=== PATIENT | female | born 1945 | race Caucasian/White ===

== ENCOUNTER 2021-07-11 10:38 | Observation (INO) | payer MEDICARE, OTHER ==
[2021-07-11] MEDS: BUMEX 1 MG IV SCH ×2 (12:20→17:21)
[2021-07-11 12:29] LABS: Hematocrit 34.3 % (35-47); Hemoglobin 10.6 gm/dl (12.0-16.0); Mean Cell Volume 86.4 fl (78-100); Mean Corpuscular Hemoglobin 26.7 pg (26-32); Mean Corpuscular Hgb Concent. 30.9 g/dl (32-36); Mean Platelet Volume 9.4 fl (7.5-11.0); Platelet Count 158 K/mm3 (150-450); Red Blood Count 3.97 M/mm3 (4.1-5.4); Red Cell Distribution Width 15.7 % (11.5-14.0); White Blood Count 5.3 K/mm3 (4.0-10.5)
[2021-07-11 12:50] LABS: BLOOD UREA NITROGEN 23 mg/dL (7-17); CHLORIDE 102 mmol/L (98-107); Calcium 8.7 mg/dL (8.4-10.2); Carbon Dioxide 30 mmol/L (22-30); Creatinine 1 1.31 mg/dL (0.52-1.04); EST GLOMERULAR FILTRATION RATE 41.8 ML/MIN; Glucose 101 mg/dL (74-106); NT PRO BNP 3760 pg/mL (0-1800); Potassium 3.3 mmol/L (3.5-5.1); SODIUM 142 mmol/L (137-145); TROPONIN < 0.012 ng/mL (0.000-0.034)
[2021-07-11 13:08] LABS: INFLUENZA A NEGATIVE (NEGATIVE); INFLUENZA B NEGATIVE (NEGATIVE); RESPIRATORY SYNCTIAL VIRUS NEGATIVE (Negative); SARS-CoV-2 Xpert Express NEGATIVE (NEGATIVE)
--- NOTE | 2021-07-11 14:50 | XRAY ---
Indication: CHF. Comparison: March 18, 2012. PA/lateral chest remains clear. Heart now borderline enlarged with new coronary stent graft and new left dual-lead pacemaker. Large hiatal hernia appears much smaller. Bony thorax intact with mild osteopenia and degenerative changes. Impression: Nonacute chest with chronic features.
--- NOTE | 2021-07-11 18:38 | PCM.HP.ADD ---
Addendum to History & Physical - History & Physical Addendum Addendum to History & Physical: This certifies that the History & Physical in the electronic chart reflects the current health status of the patient. If there are changes in the H&P these changes/exceptions are listed as follows.
[2021-07-11] MEDS: PROVENTIL 2.5 MG/3 ML NEB IH PRN (18:42)
[2021-07-11] MEDS: COREG 12.5 MG PO SCH (21:33)
[2021-07-11] MEDS: ELIQUIS 2.5 MG TABLET PO SCH (21:33)
[2021-07-11] MEDS ORDERED: ZOCOR 20MG ONE (21:37)
[2021-07-11] MEDS ORDERED: NON-FORMULARY ITEM (Apixaban*** [Eliquis 5 Mg Tablet***] 5 MG Tablet) PO SCH (22:00)
[2021-07-12] MEDS: PROVENTIL 2.5 MG/3 ML NEB IH PRN ×2 (04:55→18:33)
--- NOTE | 2021-07-12 08:10 | PCM.NOTE ---
Date and Time: 07/12/21807 Subjective Assessment: doing little better - Review of Systems Constitutional: No Fever, No Chills Eyes: No Symptoms Ears, Nose, & Throat: No Symptoms Respiratory: Orthopnea, Short Of Breath, No Cough Cardiac: No Chest Pain, No Edema, No Syncope Abdominal/Gastrointestinal: No Abdominal Pain, No Nausea, No Vomiting, No Diarrhea Genitourinary Symptoms: No Dysuria Musculoskeletal: No Back Pain, No Neck Pain Skin: No Rash Neurological: No Dizziness, No Focal Weakness, No Sensory Changes Psychological: No Symptoms Endocrine: No Symptoms Hematologic/Lymphatic: No Symptoms Immunological/Allergic: No Symptoms Objective Exam General Appearance: no apparent distress, alert Neurologic Exam: alert, oriented x 3, cooperative, normal mood/affect, nml cerebellar function, sensation nml, No motor deficits Skin Exam: normal color, warm, dry Eye Exam: PERRL, EOMI, eyes nml inspection Ears, Nose, Throat Exam: normal ENT inspection, pharynx normal, moist mucous membranes Neck Exam: normal inspection, non-tender, supple, full range of motion Respiratory Exam: diminished breath sounds, wheezing, No respiratory distress Cardiovascular Exam: regular rate/rhythm, normal heart sounds Gastrointestinal/Abdomen Exam: soft, No tenderness, No mass Extremity Exam: normal inspection, normal range of motion Back Exam: normal inspection, normal range of motion, No CVA tenderness, No vertebral tenderness Pelvic Exam: deferred Rectal Exam: deferred OBJECTIVE DATA Vital Signs: Vital Signs - 24 hr Temp Pulse Resp BP BP Pulse Ox 07/12/21 07:45 97.1 F 70 14 169/75 93 L 07/12/21 04:55 70 18 93 L 07/12/21 04:00 97.9 F 70 18 126/60 91 L 07/12/21 00:00 97.5 F 70 20 125/59 92 L 07/11/21 19:55 97.7 F 70 22 133/60 97 07/11/21 19:14 94 L 07/11/21 18:46 80 18 89 L 07/11/21 18:24 70 20 98 07/11/21 16:00 97.5 F 71 18 142/67 98 07/11/21 14:17 70 22 98 07/11/21 12:57 98 07/11/21 11:54 94 L 07/11/21 11:31 98.0 F 70 22 144/72 94 L Pain Assessment - Last Documented Pain Intensity 0 Intake and Output: Intake & Output 07/09/21 07/10/21 07/11/21 07/12/21 11:59 11:59 11:59 11:59 Intake Total 480 Output Total 2075 Balance -1595 Weight 91.8 kg 92 kg Lab Results: Lab Results-Last 24 Hours 07/11/21 07/11/21 07/11/21 Range/Units 11:47 12:15 12:15 WBC 5.3 (4.0-10.5) K/mm3 RBC 3.97 L (4.1-5.4) M/mm3 Hgb 10.6 L (12.0-16.0) gm/dl Hct 34.3 L (35-47) % MCV 86.4 (78-100) fl MCH 26.7 (26-32) pg MCHC 30.9 L (32-36) g/dl RDW 15.7 H (11.5-14.0) % Plt Count 158 (150-450) K/mm3 MPV 9.4 (7.5-11.0) fl Sodium 142 (137-145) mmol/L Potassium 3.3 L (3.5-5.1) mmol/L Chloride 102 (98-107) mmol/L Carbon Dioxide 30 (22-30) mmol/L Anion Gap 13.0 (5-15) MEQ/L BUN 23 H (7-17) mg/dL Creatinine 1.31 H (0.52-1.04) mg/dL Estimated GFR 41.8 ML/MIN Glucose 101 (74-106) mg/dL Calcium 8.7 (8.4-10.2) mg/dL Troponin I < 0.012 (0.000-0.034) ng/mL NT-Pro-B Natriuret Pep 3760 H (0-1800) pg/mL Influenza Type A Ag NEGATIVE (NEGATIVE) Influenza Type B Ag NEGATIVE (NEGATIVE) RSV (PCR) NEGATIVE (Negative) SARS-CoV-2 (PCR) NEGATIVE (NEGATIVE) Radiology Exams: Radiology Procedures Category Date Time Status CHEST 2 VIEWS (PA AND LAT) Routine Exams 07/11/21 13:00 Completed ECHO W/2D AND DOPPLER [US] Routine Exams 07/11/21 11:54 Taken Assessment/Plan (1) CHF (congestive heart failure), NYHA class III Current Visit: Yes Status: Acute Qualifiers: Congestive heart failure type: combined Congestive heart failure chronicity: acute on chronic Qualified Code(s): I50.43 - Acute on chronic combined systolic (congestive) and diastolic (congestive) heart failure Assessment & Plan: Chief Complaint Diagnosis CHF Allergies Allergy/AdvReac Type Severity Reaction Status Date / Time codeine [Codeine] Allergy Mild Rash Verified 03/18/12 17:29 Vital Signs (Last 24 hours) Temp Pulse Resp BP BP Pulse Ox 07/12/21 07:45 97.1 F 70 14 169/75 93 L 07/12/21 04:55 70 18 93 L 07/12/21 04:00 97.9 F 70 18 126/60 91 L 07/12/21 00:00 97.5 F 70 20 125/59 92 L 07/11/21 19:55 97.7 F 70 22 133/60 97 07/11/21 19:14 94 L 07/11/21 18:46 80 18 89 L 07/11/21 18:24 70 20 98 07/11/21 16:00 97.5 F 71 18 142/67 98 07/11/21 14:17 70 22 98 07/11/21 12:57 98 07/11/21 11:54 94 L 07/11/21 11:31 98.0 F 70 22 144/72 94 L Home Medications Medication Instructions Recorded Confirmed Last Taken Type Apixaban [Eliquis 5 mg 5 mg PO BID 07/11/21 07/11/21 07/11/21 History Tablet] Aspirin EC 81 mg [Ecotrin 81 81 mg PO DAILY 07/11/21 07/11/21 07/11/21 History mg] Montelukast Sodium 10 mg 10 mg PO DAILY 07/11/21 07/11/21 07/11/21 History [Singulair 10 MG] Torsemide 20 mg [Demadex 20 40 mg PO DAILY 07/11/21 07/11/21 07/11/21 History mg] Current Medications Generic Name Dose Route Start Last Admin Trade Name Freq PRN Reason Stop Dose Admin Albuterol Sulfate 2.5 mg 07/11/21 13:03 07/12/21 04:55 Albuterol Sulfate 2.5 Mg/3 Ml Neb IH 08/10/21 13:02 2.5 mg QIDPRN PRN Administration SHORTNESS OF BREATH Apixaban 5 mg 07/11/21 22:00 07/11/21 21:33 Apixaban 2.5 Mg Tablet PO 08/10/21 21:59 5 mg BID JORGE Administration Aspirin 81 mg 07/12/21 10:00 Aspirin 81 Mg Tablet.Ec PO 08/11/21 09:59 DAILY JORGE Bumetanide 1 mg 07/11/21 12:30 07/11/21 17:21 Bumetanide 0.25 Mg/Ml 4ml Vial IV 08/10/21 12:29 1 mg BID DIURETIC JORGE Administration Carvedilol 25 mg 07/11/21 22:00 07/11/21 21:33 Carvedilol 12.5 Mg Tablet PO 08/10/21 21:59 25 mg BID JORGE Administration Levothyroxine Sodium 88 mcg 07/12/21 10:00 Levothyroxine Sodium 88 Mcg Tablet PO 08/11/21 09:59 DAILY JORGE Montelukast Sodium 10 mg 07/12/21 10:00 Montelukast Sodium 10 Mg Tablet PO 08/11/21 09:59 DAILY JORGE Pantoprazole Sodium 40 mg 07/12/21 10:00 Protonix (Pantoprazole) 40 Mg Tablet PO 08/11/21 09:59 DAILY JORGE Potassium Chloride 20 meq 07/12/21 10:00 Potassium Chloride 10 Meq Tablet PO 08/11/21 09:59 DAILY JORGE Simvastatin 40 mg 07/12/21 22:00 Simvastatin 20 Mg Tablet PO 08/11/21 21:59 HS JORGE Discontinued Medications Generic Name Dose Route Start Last Admin Trade Name Bertq PRN Reason Stop Dose Admin Simvastatin 40 mg 07/12/21 10:00 07/11/21 21:38 Simvastatin 20 Mg Tablet PO 08/11/21 09:59 40 mg DAILY JORGE Administration Simvastatin Confirm 07/11/21 21:37 Simvastatin 20 Mg Tablet Administered 07/11/21 21:38 Dose 40 mg .ROUTE .STK-MED ONE Intake & Output (Last 24 hours) 07/09/21 07/10/21 07/11/21 07/12/21 11:59 11:59 11:59 11:59 Intake Total 480 Output Total 0155 Balance -1595 Weight 91.8 kg 92 kg Laboratory Results (Last 24 hours) 07/11/21 07/11/21 07/11/21 12:15 12:15 11:47 WBC 5.3 RBC 3.97 L Hgb 10.6 L Hct 34.3 L MCV 86.4 MCH 26.7 MCHC 30.9 L RDW 15.7 H Plt Count 158 MPV 9.4 Sodium 142 Potassium 3.3 L Chloride 102 Carbon Dioxide 30 Anion Gap 13.0 BUN 23 H Creatinine 1.31 H Estimated GFR 41.8 Glucose 101 Calcium 8.7 Troponin I < 0.012 NT-Pro-B Natriuret Pep 3760 H Influenza Type A Ag NEGATIVE Influenza Type B Ag NEGATIVE RSV (PCR) NEGATIVE SARS-CoV-2 (PCR) NEGATIVE Orders (Last 24 hours) Category Date Time Status Bedrest with BRP/BSC TOLERATED Activity 07/11/21 11:53 Active Code Status Order ROUTINE Care 07/11/21 11:53 Active IV Care Q6H Care 07/11/21 11:53 Active IV Insertion ROUTINE Care 07/11/21 11:54 Completed Implement CHF Pathway ROUTINE Care 07/11/21 11:[address] in Observation ROUTINE Care 07/11/21 11:53 Active Telemetry CONTINUOUS Care 07/11/21 11:54 Active Vital Signs Q4H Care 07/11/21 11:53 Active Weight,Daily 0600 Care 07/11/21 11:54 Active House Regular Diet Diet 07/11/21 Dinner Active Nutritional Consult ROUTINE Diet 07/11/21 11:54 Active CHEST 2 VIEWS (PA AND LAT) Routine Exams 07/11/21 13:00 Completed ECHO W/2D AND DOPPLER [US] Routine Exams 07/11/21 11:54 Taken BMP Stat Lab 07/11/21 12:15 Completed CBC Stat Lab 07/11/21 12:15 Completed NT PRO BNP Stat Lab 07/11/21 12:15 Completed TROPONIN Stat Lab 07/11/21 12:15 Completed Albuterol 2.5 mg/3 ml Neb [Proventil 2.5 mg/3 ml Neb Med 07/11/21 13:03 Active ] 2.5 mg IH QIDPRN PRN Apixaban [Eliquis 2.5 mg Tablet] Med 07/11/21 22:00 Active 5 mg PO BID Aspirin EC 81 mg [Ecotrin 81 mg] Med 07/12/21 10:00 Active 81 mg PO DAILY Bumetanide 1 mg [Bumex 1 mg] Med 07/11/21 12:30 Active 1 mg IV BID DIURETIC Carvedilol 12.5 mg [Coreg 12.5 mg] Med 07/11/21 22:00 Active 25 mg PO BID Levothyroxine Sodium 88 Mcg [Synthroid 88 Mcg] Med 07/12/21 10:00 Active 88 mcg PO DAILY Montelukast Sodium 10 mg [Singulair 10 MG] Med 07/12/21 10:00 Active 10 mg PO DAILY PANTOPRAZOLE 40 mg Tablet [Protonix 40MG Tablet] Med 07/12/21 10:00 Active 40 mg PO DAILY Potassium Chloride 10 Meq Tab* [Klor Con 10 MEQ] Med 07/12/21 10:00 Active 20 meq PO DAILY Simvastatin 20Mg [Zocor 20Mg] Med 07/11/21 21:37 Discontinued 40 mg .ROUTE .STK-MED ONE Simvastatin 20Mg [Zocor 20Mg] Med 07/12/21 10:00 Discontinued 40 mg PO DAILY Simvastatin 20Mg [Zocor 20Mg] Med 07/12/21 22:00 Active 40 mg PO HS EKG STAT RT 07/11/21 11:54 Completed Oxygen NASAL CANNULA 2 lpm RT 07/11/21 11:54 Active Pulse Oximetry .continuos RT 07/11/21 12:57 Active Pulse Oximetry OVERNIGHT RT 07/11/21 11:54 Active Respiratory Therapy Assessment DAILY RT 07/12/21 07:00 Active Patient Care Notes (Last 24 hours) 07/11/21 17:26 Nursing Note by Beatrice Hines I received patients cardiology records from Dr.Angela Arizmendi and faxed to 's [place] office. 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 The office is faxing over patients medical records of last visit and testing that has been done. Initialized on 07/11/21 13:28 - END OF NOTE Code(s): I50.9 - HEART FAILURE, UNSPECIFIED (2) CHF (congestive heart failure), NYHA class III Current Visit: Yes Status: Acute Qualifiers: Congestive heart failure type: combined Congestive heart failure chronicity: acute on chronic Qualified Code(s): I50.43 - Acute on chronic combined systolic (congestive) and diastolic (congestive) heart failure Code(s): I50.9 - HEART FAILURE, UNSPECIFIED (3) COPD (chronic obstructive pulmonary disease) Current Visit: Yes Status: Chronic Qualifiers: COPD type: unspecified COPD Qualified Code(s): J44.9 - Chronic obstructive pulmonary disease, unspecified (4) Restrictive airway disease Current Visit: Yes Status: Acute Code(s): J98.4 - OTHER DISORDERS OF LUNG (5) Atrial fibrillation Current Visit: Yes Status: Acute Code(s): I48.91 - UNSPECIFIED ATRIAL FIBRILLATION
[2021-07-12] MEDS: ELIQUIS 2.5 MG TABLET PO SCH ×2 (08:39→22:07)
[2021-07-12] MEDS: COREG 12.5 MG PO SCH ×2 (08:39→22:08)
[2021-07-12] MEDS: Singulair 10 MG PO SCH (08:40)
[2021-07-12] MEDS: ECOTRIN 81 MG PO SCH (08:40)
[2021-07-12] MEDS: SYNTHROID 88 MCG PO SCH (08:40)
[2021-07-12] MEDS: Protonix 40MG Tablet PO SCH (08:40)
[2021-07-12] MEDS: Klor Con 10 MEQ PO SCH (08:40)
[2021-07-12] MEDS: BUMEX 1 MG IV SCH ×2 (08:41→17:37)
[2021-07-12] MEDS ORDERED: NON-FORMULARY ITEM (Simvastatin 40 Mg [Zocor 40 Mg] 40 MG Tablet) PO SCH (10:00)
[2021-07-12] MEDS ORDERED: ZOCOR 20MG PO SCH ×2 (10:00→22:00)
[2021-07-12] MEDS ORDERED: NON-FORMULARY ITEM (Omeprazole 20 Mg [Prilosec 20 Mg] 20 MG Capsule.Dr) PO SCH (10:00)
[2021-07-13 05:01] LABS: Basophil (Absolute #) 0.05 (0-0.4); Eosinophil % 12.5 % (0.00-5.0); Eosinophil (Absolute #) 0.67 (0-0.5); Hematocrit 36.1 % (35-47); Hemoglobin 11.1 gm/dl (12.0-16.0); Lymphocyte (Absolute #) 0.97 (1.0-4.6); Lymphocytes % 18.2 % (24.0-44.0); Mean Cell Volume 86.8 fl (78-100); Mean Corpuscular Hemoglobin 26.7 pg (26-32); Mean Corpuscular Hgb Concent. 30.7 g/dl (32-36); Mean Platelet Volume 9.6 fl (7.5-11.0); Monocyte (Absolute #) 0.45 (0.0-1.3); Monocytes % 8.4 % (0.0-12.0); Platelet Count 156 K/mm3 (150-450); Red Blood Count 4.16 M/mm3 (4.1-5.4); Red Cell Distribution Width 15.7 % (11.5-14.0); White Blood Count 5.3 K/mm3 (4.0-10.5)
[2021-07-13 05:33] LABS: Creatinine 1 1.27 mg/dL (0.52-1.04)
[2021-07-13 05:34] LABS: ALBUMIN 3.7 g/dL (3.5-5.0); ANION GAP 11.6 MEQ/L (5-15); Calcium 8.9 mg/dL (8.4-10.2); EST GLOMERULAR FILTRATION RATE 43.4 ML/MIN; Potassium 3.2 mmol/L (3.5-5.1); Total Protein 6.8 g/dL (6.3-8.2)
[2021-07-13] MEDS: PROVENTIL 2.5 MG/3 ML NEB IH PRN (05:35)
[2021-07-13 05:39] VITALS: PULSE 70
[2021-07-13 08:31] VITALS: BP 161/76; O2SAT 94
--- NOTE | 2021-07-13 08:37 | XRAY ---
Indication: CHF. Comparison: July 11, 2021. PA/lateral chest unchanged again hyperinflated and clear. Heart again borderline enlarged with left pacemaker and incidental small hiatal hernia. No new/acute abnormalities.
[2021-07-13] MEDS: Protonix 40MG Tablet PO SCH (09:27)
[2021-07-13] MEDS: ECOTRIN 81 MG PO SCH (09:27)
[2021-07-13] MEDS: Klor Con 10 MEQ PO SCH (09:27)
[2021-07-13] MEDS: ELIQUIS 2.5 MG TABLET PO SCH (09:27)
[2021-07-13] MEDS: COREG 12.5 MG PO SCH (09:27)
[2021-07-13] MEDS: Singulair 10 MG PO SCH (09:27)
[2021-07-13] MEDS: SYNTHROID 88 MCG PO SCH (09:28)
[2021-07-13] MEDS: BUMEX 1 MG IV SCH (09:28)
--- NOTE | 2021-07-13 12:45 | PCM.DS ---
Discharge Summary Date of Admission: 07/11/21 11:30 Admitting Physician: ERNESTINE RIOS Consults: Consults on Case 07/11/21 11:54 Nutritional Consult ROUTINE Primary Care Provider: ERNESTINE RIOS Allergies Allergies codeine [Codeine] Allergy (Mild, Verified 03/18/12 17:29) Rash Hospital Summary - Hospital Course Hospital Course: Chief Complaint Diagnosis CHF Allergies Allergy/AdvReac Type Severity Reaction Status Date / Time codeine [Codeine] Allergy Mild Rash Verified 03/18/12 17:29 Vital Signs (Last 24 hours) Temp Pulse Resp BP BP Pulse Ox 07/13/21 08:00 96.0 F 70 21 161/76 94 L 07/13/21 05:37 70 22 92 L 07/13/21 04:00 97.7 F 71 18 158/74 96 07/13/21 00:00 97.8 F 70 20 131/63 96 07/12/21 20:00 97.6 F 70 16 136/65 93 L 07/12/21 18:37 70 22 93 L 07/12/21 16:00 97 F 80 15 136/68 90 L Home Medications Medication Instructions Recorded Confirmed Last Taken Type Apixaban [Eliquis 5 mg 5 mg PO BID 07/11/21 07/11/21 07/11/21 History Tablet] Aspirin EC 81 mg [Ecotrin 81 81 mg PO DAILY 07/11/21 07/11/21 07/11/21 History mg] Montelukast Sodium 10 mg 10 mg PO DAILY 07/11/21 07/11/21 07/11/21 History [Singulair 10 MG] Torsemide 20 mg [Demadex 20 40 mg PO DAILY 07/11/21 07/11/21 07/11/21 History mg] Isosorbide Mononitrate 60 mg 60 mg PO DAILY 07/12/21 07/12/21 Unknown History [Imdur 60MG] Current Medications Discontinued Medications Generic Name Dose Route Start Last Admin Trade Name Freq PRN Reason Stop Dose Admin Albuterol Sulfate 2.5 mg 07/11/21 13:03 07/13/21 05:35 Albuterol Sulfate 2.5 Mg/3 Ml Neb IH 08/10/21 13:02 2.5 mg QIDPRN PRN Administration SHORTNESS OF BREATH Apixaban 5 mg 07/11/21 22:00 07/13/21 09:27 Apixaban 2.5 Mg Tablet PO 08/10/21 21:59 5 mg BID JORGE Administration Aspirin 81 mg 07/12/21 10:00 07/13/21 09:27 Aspirin 81 Mg Tablet.Ec PO 08/11/21 09:59 81 mg DAILY JORGE Administration Bumetanide 1 mg 07/11/21 12:30 07/13/21 09:28 Bumetanide 0.25 Mg/Ml 4ml Vial IV 08/10/21 12:29 1 mg BID DIURETIC JORGE Administration Carvedilol 25 mg 07/11/21 22:00 07/13/21 09:27 Carvedilol 12.5 Mg Tablet PO 08/10/21 21:59 25 mg BID JORGE Administration Levothyroxine Sodium 88 mcg 07/12/21 10:00 07/13/21 09:28 Levothyroxine Sodium 88 Mcg Tablet PO 08/11/21 09:59 88 mcg DAILY JORGE Administration Montelukast Sodium 10 mg 07/12/21 10:00 07/13/21 09:27 Montelukast Sodium 10 Mg Tablet PO 08/11/21 09:59 10 mg DAILY JORGE Administration Pantoprazole Sodium 40 mg 07/12/21 10:00 07/13/21 09:27 Protonix (Pantoprazole) 40 Mg Tablet PO 08/11/21 09:59 40 mg DAILY JORGE Administration Potassium Chloride 20 meq 07/12/21 10:00 07/13/21 09:27 Potassium Chloride 10 Meq Tablet PO 08/11/21 09:59 20 meq DAILY JORGE Administration Simvastatin 40 mg 07/12/21 10:00 07/11/21 21:38 Simvastatin 20 Mg Tablet PO 08/11/21 09:59 40 mg DAILY JORGE Administration Simvastatin Confirm 07/11/21 21:37 Simvastatin 20 Mg Tablet Administered 07/11/21 21:38 Dose 40 mg .ROUTE .STK-MED ONE Simvastatin 40 mg 07/12/21 22:00 07/12/21 22:08 Simvastatin 20 Mg Tablet PO 08/11/21 21:59 40 mg HS JORGE Administration Intake & Output (Last 24 hours) 07/11/21 07/12/21 07/13/2122 11:59 11:59 11:59 11:59 Intake Total 780 920 Output Total 2275 1400 Balance -1495 -480 Weight 91.8 kg 92 kg 91 kg Laboratory Results (Last 24 hours) 07/13/21 07/13/21 04:40 04:40 WBC 5.3 RBC 4.16 Hgb 11.1 L Hct 36.1 MCV 86.8 MCH 26.7 MCHC 30.7 L RDW 15.7 H Plt Count 156 MPV 9.6 Gran % 60.0 Eos # (Auto) 0.67 H Absolute Lymphs (auto) 0.97 L Absolute Monos (auto) 0.45 Lymphocytes % 18.2 L Monocytes % 8.4 Eosinophils % 12.5 H Basophils % 0.9 Absolute Granulocytes 3.20 Basophils # 0.05 Sodium 141 Potassium 3.2 L Chloride 101 Carbon Dioxide 31 H Anion Gap 11.6 BUN 22 H Creatinine 1.27 H Estimated GFR 43.4 Glucose 102 Calcium 8.9 Total Bilirubin 1.00 AST 25 ALT 12 Alkaline Phosphatase 77 NT-Pro-B Natriuret Pep 3620 H Serum Total Protein 6.8 Albumin 3.7 Orders (Last 24 hours) Category Date Time Status Discharge Routine Discharge 07/13/21 Ordered Discharge/Telephone Order Routine Discharge 07/13/21 Active CHEST 2 VIEWS (PA AND LAT) Routine Exams 07/13/21 07:00 Completed BNP [NT PRO BNP] AM.LAB Lab 07/13/21 04:40 Completed CBC W DIFF AM.LAB Lab 07/13/21 04:40 Completed CMP AM.LAB Lab 07/13/21 04:40 Completed Simvastatin 20Mg [Zocor 20Mg] Med 07/12/21 22:00 Discontinued 40 mg PO HS Patient Care Notes (Last 24 hours) 07/13/21 10:57 Nursing Note by Jayne Wilson patient left with on discharge. verbalizes understanding of all discharge teaching Initialized on 07/13/21 10:57 - END OF NOTE 07/13/21 10:00 (created 07/13/21 11:01) Case Management Note by Marybel Finney NIGHT TIME OXYGEN ORDER SUBMITTED TO [facility]IA [place]. DELIVERY INSTRUCTIONS PLACED IN DC INSTRUCTIONS. PRIMARY RN GIVEN PULSE OX TO SEND HOME WITH PATIENT AT TIME OF DC. S/W PATIENT- SHE CONTINUES TO DENY ANY NEW NEEDS AT TIME OF DC. SHE PLANS TO RETURN HOME TO HER PRIOR LEVEL OF FUNCTIONING WITH HER SPOUSE. Initialized on 07/13/21 11:01 - END OF NOTE 07/13/21 08:55 Nursing Note by Deborah Michaels SPOKE WITH DR. RIOS ON THE PHONE. DISCHARGE PATIENT HOME. KEEP PATIENT ON HOME DOSE OF ATER PILLS. D/C WITH NIGHT TIME HOME O2. Initialized on 07/13/21 08:55 - END OF NOTE 07/12/21 21:01 Respiratory Note by Michelle Peter OVERNIGHT PULSE OXIMETRY PLACED ON PT. Initialized on 07/12/21 21:01 - END OF NOTE 07/12/21 15:55 Nursing Note by Patito Sainz Pt states that she was getting Trelegy inhaler samples from Dr. Rios, states that she would like to see about taking that again because she feels that it was helping her. Will pass on to oncoming shift to be passed on at pt d/c. Initialized on 07/12/21 15:55 - END OF NOTE - Vitals & Intake/Output Vital Signs: Vital Signs Temperature 96.0 F 07/13/21 08:00 Pulse Rate 70 07/13/21 08:00 Respiratory Rate 21 07/13/21 08:00 Blood Pressure 161/76 07/13/21 08:00 O2 Sat by Pulse Oximetry 94 L 07/13/21 08:00 Intake & Output: Intake & Output 07/11/21 07/12/21 07/13/21 07/14/21 11:59 11:59 11:59 11:59 Intake Total 780 920 Output Total 2275 1400 Balance -1495 -480 Weight 91.8 kg 92 kg 91 kg - Lab Result Diagrams: 07/13/21 04:40 07/13/21 04:40 Lab Results-Last 24 Hrs: Lab Results-Last 24 Hours 07/13/21 07/13/21 Range/Units 04:40 04:40 WBC 5.3 (4.0-10.5) K/mm3 RBC 4.16 (4.1-5.4) M/mm3 Hgb 11.1 L (12.0-16.0) gm/dl Hct 36.1 (35-47) % MCV 86.8 (78-100) fl MCH 26.7 (26-32) pg MCHC 30.7 L (32-36) g/dl RDW 15.7 H (11.5-14.0) % Plt Count 156 (150-450) K/mm3 MPV 9.6 (7.5-11.0) fl Gran % 60.0 (36.0-66.0) % Eos # (Auto) 0.67 H (0-0.5) Absolute Lymphs (auto) 0.97 L (1.0-4.6) Absolute Monos (auto) 0.45 (0.0-1.3) Lymphocytes % 18.2 L (24.0-44.0) % Monocytes % 8.4 (0.0-12.0) % Eosinophils % 12.5 H (0.00-5.0) % Basophils % 0.9 (0.0-0.4) % Absolute Granulocytes 3.20 (1.4-6.9) Basophils # 0.05 (0-0.4) Sodium 141 (137-145) mmol/L Potassium 3.2 L (3.5-5.1) mmol/L Chloride 101 (98-107) mmol/L Carbon Dioxide 31 H (22-30) mmol/L Anion Gap 11.6 (5-15) MEQ/L BUN 22 H (7-17) mg/dL Creatinine 1.27 H (0.52-1.04) mg/dL Estimated GFR 43.4 ML/MIN Glucose 102 (74-106) mg/dL Calcium 8.9 (8.4-10.2) mg/dL Total Bilirubin 1.00 (0.2-1.3) mg/dL AST 25 (14-36) U/L ALT 12 (0-35) U/L Alkaline Phosphatase 77 (38-126) U/L NT-Pro-B Natriuret Pep 3620 H (0-1800) pg/mL Serum Total Protein 6.8 (6.3-8.2) g/dL Albumin 3.7 (3.5-5.0) g/dL - Radiology Exams Ordered Rad Exams-Entire Visit: Radiology Procedures Category Date Time Status CHEST 2 VIEWS (PA AND LAT) Routine Exams 07/11/21 13:00 Completed CHEST 2 VIEWS (PA AND LAT) Routine Exams 07/13/21 07:00 Completed ECHO W/2D AND DOPPLER [US] Routine Exams 07/11/21 11:54 Taken - Procedures and Test Procedures and Tests throughout Hospitalization: Therapy Orders & Screens 07/11/21 11:54 EKG STAT Comment: Diagnosis: CHF Oxygen NASAL CANNULA 2 lpm Comment: Diagnosis: CHF 07/12/21 07:00 Respiratory Therapy Assessment DAILY Comment: Diagnosis: CHF Discharge Exam General Appearance: no apparent distress, alert Neurologic Exam: alert, oriented x 3, cooperative, normal mood/affect, nml cerebellar function, sensation nml, No motor deficits Eye Exam: PERRL, EOMI, eyes nml inspection Ears, Nose, Throat Exam: normal ENT inspection, pharynx normal, moist mucous membranes Neck Exam: normal inspection, non-tender, supple, full range of motion Respiratory Exam: diminished breath sounds, crackles/rales, rhonchi, No respiratory distress Cardiovascular Exam: regular rate/rhythm, normal heart sounds Gastrointestinal/Abdomen Exam: soft, No tenderness, No mass Pelvic Exam: deferred Rectal Exam: deferred Back Exam: normal inspection, normal range of motion, No CVA tenderness, No vertebral tenderness Extremity Exam: normal inspection, normal range of motion Skin Exam: normal color, warm, dry Final Diagnosis/Problem List - Final Discharge Diagnosis/Problem (1) CHF (congestive heart failure), NYHA class III Status: Chronic Code(s): I50.9 - HEART FAILURE, UNSPECIFIED (2) CHF (congestive heart failure), NYHA class III Status: Chronic Code(s): I50.9 - HEART FAILURE, UNSPECIFIED (3) COPD (chronic obstructive pulmonary disease) Status: Chronic (4) Restrictive airway disease Status: Chronic Code(s): J98.4 - OTHER DISORDERS OF LUNG (5) Atrial fibrillation Status: Chronic Code(s): I48.91 - UNSPECIFIED ATRIAL FIBRILLATION - Discharge Discharge Date: 07/13/21 Disposition: Home, Self-Care Condition: Stable Prescriptions: Continue Albuterol 2.5 mg/3 ml Neb [Proventil 2.5 mg/3 ml Neb] 2.5 mg IH QID PRN PRN Reason: Shortness Of Breath Potassium Chloride 10 Meq Tab* [Klor Con 10 MEQ] 20 meq PO DAILY Simvastatin 40 mg [Zocor 40 mg] 40 mg PO DAILY Carvedilol 12.5 mg [Coreg 12.5 mg] 25 mg PO BID Levothyroxine Sodium 88 Mcg [Synthroid 88 Mcg] 88 mcg PO DAILY Omeprazole 20 MG [Prilosec 20 mg] 40 mg PO DAILY Montelukast Sodium 10 mg [Singulair 10 MG] 10 mg PO DAILY Torsemide 20 mg [Demadex 20 mg] 40 mg PO DAILY Aspirin EC 81 mg [Ecotrin 81 mg] 81 mg PO DAILY Apixaban [Eliquis 5 mg Tablet] 5 mg PO BID Isosorbide Mononitrate 60 mg [Imdur 60MG] 60 mg PO DAILY Instructions: Heart Failure, Adult (DC) Additional Instructions: WEAR 2L/NC WHILE SLEEPING CALL [facility] WHEN YOU GET HOME AT [phone] SO THEY CAN DELIVER YOUR HOME CONCENTRATOR Follow up with: ERNESTINE RIOS MD [Primary Care Provider] - 07/23/21 9:45 am (at [place])
--- NOTE | 2021-07-13 12:51 | ECHO ---
Transthoracic echocardiographic examination and color Doppler was done on 07/11/2021. INDICATION: Congestive heart failure. IMPRESSION: 1) NO REGIONAL WALL MOTION ABNORMALITY. ESTIMATED GLOBAL LEFT VENTRICULAR EJECTION FRACTION OF AROUND 50 TO 55%. 2) CALCIFIED MITRAL VALVE WITH POSSIBLE STENOSIS. 3) AORTIC VALVE SCLEROSIS WITH PEAK GRADIENT OF 21 MM OF MERCURY. 4) MODERATE TRICUSPID REGURGITATION. RIGHT VENTRICULAR SYSTOLIC PRESSURE OF 27 MM OF MERCURY. 5) MODERATELY DILATED RIGHT SIDE CHAMBERS. 6) LEFT VENTRICLE DIASTOLIC DYSFUNCTION. 7) LEFT ATRIAL ENLARGEMENT. 8) LEFT VENTRICULAR HYPERTROPHY. The left ventricle is visualized and demonstrated adequate motion of all the segments. Estimated global left ventricular ejection fraction 50 to 55%. There is left ventricular hypertrophy. The mitral valve is calcified and appears to have some limitation in the opening. However, there appears to be no gradient across the mitral valve during diastole this needs further interrogation. The left atrium is enlarged. The aortic valve is sclerotic. The peak gradient across the aortic valve is about 21 mm of Mercury. The right side chambers are mildly dilated. There is moderate tricuspid regurgitation. The right ventricular systolic pressure of 27 mm of Mercury. There is mild pulmonic insufficiency. Tissue Doppler study of the lateral mitral annulus suggestive of left ventricle diastolic dysfunction.
== END 2021-07-13 10:55 | disposition home or self-care (01) ==
LOC: MED SURG 11:30
PROVIDERS: ADMIT General Practice; ATTEND General Practice
DX: I11.0 Hypertensive heart disease with heart failure (principal); I50.9 Heart failure, unspecified; J44.9 Chronic obstructive pulmonary disease, unspecified; J98.4 Other disorders of lung; I48.91 Unspecified atrial fibrillation; E03.9 Hypothyroidism, unspecified; E78.5 Hyperlipidemia, unspecified; Z79.899 Other long term (current) drug therapy; Z20.828 Contact with and (suspected) exposure to other viral communicable diseases
CPT/HCPCS: 0241U; 36415; 71046; 80048; 80053; 83880; 84484; 85025; 85027; 93005; 93268; 93306; 94640; 94762; G0378; J7609; A9270-GY

== ENCOUNTER 2022-01-08 18:30 | Observation (INO) | payer MEDICARE, OTHER ==
--- NOTE | 2022-01-08 19:27 | ERPHSYRPT ---
- History of Present Illness Time Seen by Provider: 01/08/22 19:10 Source: patient, family Exam Limitations: no limitations Patient Subjective Stated Complaint: Pt stated that she had blood work done this morning at [facility] for Dr. Gallego and they called her later this evening and told her to come to the ER due to her potassium being 2.something. Triage Nursing Assessment: Pt brought to the ER by her , vitals wnl, denies pain, here for lab recheck and to get potassium if needed, denies any symptoms, pulses normal, skin n/w/d, denies palpatations or chest pain Physician History: This is a 76-year-old white female patient of Dr. Rios and drainman Dr. Gallego who presents to the emergency department with a low potassium level. Patient was called by the drainman office and told to come the emergency room because her potassium was two-point something. They did not recall the exact value. Patient is completely asymptomatic. Patient ordinarily takes 2 potassium pills in the morning and 2 in the evening. After her blood draw, she has taken 2 of her potassium pills but has not taken 2 in the evening yet. Patient blood draw was performed at 8 AM and another hospital. Patient arrives to this hospital 11 hours later. We will redraw her and treat her according to her most recent labs. Patient has history of CHF, hyperlipidemia, gout, hypothyroidism, gastroesophageal reflux disease and hypertension. Timing/Duration: today Modifying Factors: Improves With: nothing Associated Symptoms: denies symptoms Allergies/Adverse Reactions: codeine [Codeine] Allergy (Mild, Verified 01/08/22 19:03) Rash Home Medications: Carvedilol 12.5 mg [Coreg 12.5 mg] 3.125 mg PO BID 03/18/12 [History] Levothyroxine Sodium 88 Mcg [Synthroid 88 Mcg] 88 mcg PO DAILY 03/18/12 [History] Potassium Chloride Tab* [Klor Con] 40 meq PO BID 03/18/12 [History] Aspirin EC 81 mg [Ecotrin 81 mg] 81 mg PO DAILY 07/11/21 [History] Montelukast Sodium 10 mg [Singulair 10 MG] 10 mg PO DAILY 07/11/21 [History] Isosorbide Mononitrate 60 mg [Imdur 60MG] 120 mg PO DAILY 07/12/21 [History] Allopurinol 300 mg [Zyloprim 300 mg] 300 mg PO DAILY 01/08/22 [History] Atorvastatin Calcium [Lipitor 40Mg] 40 mg PO DAILY 01/08/22 [History] Bumetanide 2 mg PO BID 01/08/22 [History] Ipratropium/Albuterol Sulfate [Iprat-Albut 0.5-3(2.5) mg/3 ml] 3 ml NEB QID 01/08/22 [History] Midodrine HCl 10 mg PO TID 01/08/22 [History] PANTOPRAZOLE 40 mg Tablet [Protonix 40MG Tablet] 40 mg PO BID 01/08/22 [History] metOLazone [Metolazone] 2.5 mg PO UD 01/08/22 [History] Hx Tetanus, Diphtheria Vaccination/Date Given: No Hx Influenza Vaccination/Date Given: Yes (2011) Hx Pneumococcal Vaccination/Date Given: No Travel Risk - International Travel Have you traveled outside of the country in past 3 weeks: No - Coronavirus Screening Are you exhibiting any of the following symptoms?: No Close contact with a COVID-19 positive Pt in past 14-21 Days: No - Vaccine Status Have you recieved a Covid-19 vaccination: Yes [employer]: [employer] - Vaccination Dates Date of 2cond Vaccination (if applicable): 06/08/20 Comment: booster 02/15/21 - Review of Systems Constitutional: No Symptoms Eyes: No Symptoms Ears, Nose, & Throat: No Symptoms Respiratory: No Symptoms Cardiac: No Symptoms Abdominal/Gastrointestinal: No Symptoms Genitourinary Symptoms: No Symptoms Musculoskeletal: No Symptoms Skin: No Symptoms Neurological: No Symptoms Psychological: No Symptoms Endocrine: No Symptoms Hematologic/Lymphatic: No Symptoms Immunological/Allergic: No Symptoms All Other Systems: Reviewed and Negative - Past Medical History Pertinent Past Medical History: Yes Neurological History: No Pertinent History ENT History: Cataracts Cardiac History: Coronary Artery Disease, High Cholesterol, Hypertension, Other Respiratory History: Asthma, Bronchitis Endocrine Medical History: Hypothyroidism Musculoskeletal History: No Pertinent History GI Medical History: GERD, GI Bleed, Hernia History: Renal Disease Psycho-Social History: No Pertinent History Female Reproductive Disorders: Abnormal Uterine Bleeding Other Medical History: ANEMIA pacemaker - Past Surgical History Past Surgical History: Yes Neuro Surgical History: No Pertinent History Cardiac: Cardiac Catheterization, Cardiac Stent Respiratory: No Pertinent History Gastrointestinal: Cholecystectomy Female Surgical History: Hysterectomy Other Surgical History: 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 - Social History Smoking Status: Never smoker Exposure to second hand smoke: No (in past) Drug Use: none Patient Lives Alone: No - Nursing Vital Signs Nursing Vital Signs: Initial Vital Signs Temperature 98.4 F 01/08/22 18:51 Pulse Rate 71 01/08/22 18:51 Respiratory Rate 13 01/08/22 18:51 Blood Pressure 134/81 01/08/22 18:51 O2 Sat by Pulse Oximetry 99 01/08/22 18:51 Pain Scale Pain Intensity 0 - Physical Exam General Appearance: no apparent distress, alert Eye Exam: PERRL/EOMI, eyes nml inspection Ears, Nose, Throat Exam: normal ENT inspection, moist mucous membranes Neck Exam: normal inspection, non-tender, supple, full range of motion Respiratory Exam: normal breath sounds, lungs clear, No chest tenderness, No respiratory distress Cardiovascular Exam: regular rate/rhythm, normal heart sounds, normal peripheral pulses Gastrointestinal/Abdomen Exam: soft, normal bowel sounds, No tenderness Pelvic Exam: not done Rectal Exam: not done Back Exam: normal inspection, normal range of motion, No CVA tenderness Extremity Exam: normal inspection, normal range of motion, pelvis stable Neurologic Exam: alert, oriented x 3, 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, 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, normal mood/affect, nml cerebellar function, nml station & gait, sensation nml Skin Exam: normal color, warm, dry Lymphatic Exam: No adenopathy SpO2 Interpretation: normal SpO2: 99 O2 Delivery: Room Air - Course Nursing assessment & vital signs reviewed: Yes EKG Interpreted by Me: RATE (70), NORMAL AXIS, NORMAL INTERVALS, NORMAL QRS, NORMAL ST-T, Other (No acute ischemia.) Ordered Tests: Active Orders 24 hr Category Date Time Status Medical Underwriter STAT Care 01/08/22 19:27 Active EKG-ER Only STAT Care 01/08/22 19:27 Active IV Insertion STAT Care 01/08/22 19:27 Active Telemetry q4h Care 01/08/22 20:01 Active BMP Stat Lab 01/08/22 21:38 Received CBC W DIFF Stat Lab 01/08/22 19:29 Completed CMP Stat Lab 01/08/22 19:29 Completed MAGNESIUM Stat Lab 01/08/22 19:29 Completed Medication Summary Generic Name Dose Route Start Last Admin Trade Name Chip PRN Reason Stop Dose Admin Sodium Chloride 1,000 mls @ 100 mls/hr 01/08/22 20:15 01/08/22 20:08 Sodium Chloride 0.9% 1000 Ml IV 02/07/22 20:14 100 mls/hr .Q10H JORGE Administration Discontinued Medications Generic Name Dose Route Start Last Admin Trade Name Chip PRN Reason Stop Dose Admin Potassium Chloride 20 meq in 100 mls @ 50 mls/hr 01/08/22 20:01 01/08/22 20:07 Potassium Chloride 20 Meq In Water 100ml IV 01/08/22 22:00 50 mls/hr STAT ONE Administration Potassium Chloride Confirm 01/08/22 20:05 Potassium Chloride 20 Meq In Water 100ml Administered 01/08/22 20:06 Dose 100 mls @ ud IV .STK-MED ONE Magnesium Oxide 400 mg 01/08/22 21:23 01/08/22 21:27 Magnesium Oxide 400 Mg Tablet PO 01/08/22 21:24 400 mg STAT ONE Administration Magnesium Oxide Confirm 01/08/22 21:26 Magnesium Oxide 400 Mg Tablet Administered 01/08/22 21:27 Dose 400 mg .ROUTE .STK-MED ONE Potassium Chloride 20 meq 01/08/22 20:02 01/08/22 20:08 Potassium Chloride Tab 10 Meq Tab PO 01/08/22 20:03 20 meq STAT ONE Administration Potassium Chloride Confirm 01/08/22 20:04 Potassium Chloride Tab 10 Meq Tab Administered 01/08/22 20:05 Dose 20 meq PO .STK-MED ONE Lab/Rad Data: Laboratory Result Diagrams 01/08/22 19:29 01/08/22 19:29 Laboratory Results 01/08/22 01/08/22 Range/Units 19:29 19:29 WBC 9.1 (4.0-10.5) x10^3/uL RBC 4.26 (4.1-5.4) x10^6/uL Hgb 12.0 (12.0-16.0) g/dL Hct 39.1 (35-47) % MCV 91.8 (78-100) fL MCH 28.2 (26-32) pg MCHC 30.7 L (32-36) g/dL RDW 17.4 H (11.5-14.0) % Plt Count 244 (150-450) x10^3/uL MPV 11.0 (7.5-11.0) fL Gran % 66.8 H (36.0-66.0) % Immature Gran % (Auto) 0.4 (0.00-0.4) % Nucleat RBC Rel Count 0.0 (0.00-0.1) % Eos # (Auto) 0.80 H (0-0.5) x10^3/uL Immature Gran # (Auto) 0.04 H (0.00-0.03) x10^3u/L Absolute Lymphs (auto) 1.38 (1.0-4.6) x10^3/uL Absolute Monos (auto) 0.70 (0.0-1.3) x10^3/uL Absolute Nucleated RBC 0.00 (0.00-0.01) x10^3u/L Lymphocytes % 15.2 L (24.0-44.0) % Monocytes % 7.7 (0.0-12.0) % Eosinophils % 8.8 H (0.00-5.0) % Basophils % 1.1 (0.0-0.4) % Absolute Granulocytes 6.07 (1.4-6.9) x10^3/uL Basophils # 0.10 (0-0.4) x10^3/uL Sodium 138 (137-145) mmol/L Potassium 2.8 L* (3.5-5.1) mmol/L Chloride 92 L (98-107) mmol/L Carbon Dioxide 32 H (22-30) mmol/L Anion Gap 17.8 H (5-15) MEQ/L BUN 45 H (7-17) mg/dL Creatinine 2.32 H (0.52-1.04) mg/dL Estimated GFR 21.6 ML/MIN Glucose 137 H (74-106) mg/dL Calcium 9.1 (8.4-10.2) mg/dL Magnesium 1.5 L (1.6-2.3) mg/dL Total Bilirubin 1.20 (0.2-1.3) mg/dL AST 41 H (14-36) U/L ALT 17 (0-35) U/L Alkaline Phosphatase 113 (38-126) U/L Serum Total Protein 7.9 (6.3-8.2) g/dL Albumin 4.6 (3.5-5.0) g/dL - Progress Progress: improved, re-examined Counseled pt/family regarding: lab results, diagnosis, need for follow-up - Departure Departure Disposition: Home Clinical Impression: Hypokalemia Condition: Stable Critical Care Time: No Referrals: ERNESTINE RIOS MD [Primary Care Provider] - Follow up/PCP as directed Additional Instructions: Take your to potassium pills this evening when you return home. Tomorrow, 01/09/2022, take 2 of your potassium pills in the morning, one of your potassium pills midday, and 2 of your potassium pills in the evening. Follow-up at the lab at 10 AM on the morning of 01/10/2022 to recheck your potassium levels. Make sure you take your morning dose of potassium on 01/10/2022. Call your primary care doctor for the results of that test.
[2022-01-08 19:31] LABS: Absolute Neutrophil Ct (ANC) 6.07 x10^3/uL (1.4-6.9); Eosinophil % 8.8 % (0.00-5.0); Hematocrit 39.1 % (35-47); Lymphocyte (Absolute #) 1.38 x10^3/uL (1.0-4.6); Lymphocytes % 15.2 % (24.0-44.0); Mean Cell Volume 91.8 fL (78-100); Mean Corpuscular Hemoglobin 28.2 pg (26-32); Mean Corpuscular Hgb Concent. 30.7 g/dL (32-36); Monocytes % 7.7 % (0.0-12.0); Neutrophil % 66.8 % (36.0-66.0); Platelet Count 244 x10^3/uL (150-450); Red Blood Count 4.26 x10^6/uL (4.1-5.4); Red Cell Distribution Width 17.4 % (11.5-14.0); White Blood Count 9.1 x10^3/uL (4.0-10.5)
[2022-01-08 19:38] LABS: ALBUMIN 4.6 g/dL (3.5-5.0); ANION GAP 17.8 MEQ/L (5-15); BILIRUBIN,TOTAL 1.2 mg/dL (0.2-1.3); Calcium 9.1 mg/dL (8.4-10.2); Creatinine 1 2.32 mg/dL (0.52-1.04); EST GLOMERULAR FILTRATION RATE 21.6 ML/MIN; MAGNESIUM 1.5 mg/dL (1.6-2.3); Total Protein 7.9 g/dL (6.3-8.2)
[2022-01-08 19:43] LABS: Potassium 2.8 mmol/L (3.5-5.1)
[2022-01-08] MEDS ORDERED: POTASSIUM CHLORIDE 20 mEq IN WATER 100ML 20 MEQ/100 ML BAG IV ONE (20:01)
[2022-01-08] MEDS ORDERED: Klor Con PO ONE ×4 (20:02→22:32)
[2022-01-08] MEDS ORDERED: Sodium Chloride 0.9% 1000 ML 1,000 ML ONE (20:04)
[2022-01-08] MEDS ORDERED: POTASSIUM CHLORIDE 20 mEq IN WATER 100ML 100 ML IV ONE (20:05)
[2022-01-08] MEDS ORDERED: Sodium Chloride 0.9% 1000 ML 1,000 ML IV SCH (20:15)
[2022-01-08] MEDS ORDERED: MAG-OX 400 PO ONE (21:23)
[2022-01-08] MEDS ORDERED: MAG-OX 400 ONE (21:26)
[2022-01-08 21:52] LABS: Calcium 8.9 mg/dL (8.4-10.2); Creatinine 1 2.39 mg/dL (0.52-1.04); EST GLOMERULAR FILTRATION RATE 20.9 ML/MIN
[2022-01-08 22:24] LABS: Potassium 2.5 mmol/L (3.5-5.1)
[2022-01-09 00:07] LABS: ANION GAP 11.6 MEQ/L (5-15); Calcium 8.8 mg/dL (8.4-10.2); Creatinine 1 2.27 mg/dL (0.52-1.04); EST GLOMERULAR FILTRATION RATE 22.1 ML/MIN
[2022-01-09 00:10] LABS: INFLUENZA A NEGATIVE (NEGATIVE); INFLUENZA B NEGATIVE (NEGATIVE); RESPIRATORY SYNCTIAL VIRUS NEGATIVE (Negative)
[2022-01-09 00:17] LABS: Potassium 2.4 mmol/L (3.5-5.1)
[2022-01-09] MEDS ORDERED: POTASSIUM CHLORIDE 20 mEq IN WATER 100ML 100 ML IV ONE (00:30)
[2022-01-09] MEDS ORDERED: POTASSIUM CHLORIDE 20 mEq IN WATER 100ML 20 MEQ/100 ML BAG IV ONE (00:33)
[2022-01-09 00:41] LABS: SARS-CoV-2 Xpert Express POSITIVE (NEGATIVE)
[2022-01-09] MEDS ORDERED: TYLENOL 325 MG PO PRN (01:42)
[2022-01-09] MEDS ORDERED: Zofran 4 MG/2 ML VIAL IV PRN (01:42)
[2022-01-09 05:43] LABS: ANION GAP 10.6 MEQ/L (5-15); BILIRUBIN,TOTAL 1.1 mg/dL (0.2-1.3); Calcium 8.4 mg/dL (8.4-10.2); Creatinine 1 1.99 mg/dL (0.52-1.04); EST GLOMERULAR FILTRATION RATE 25.8 ML/MIN; Total Protein 7.2 g/dL (6.3-8.2)
[2022-01-09 05:48] LABS: Potassium 2.4 mmol/L (3.5-5.1)
[2022-01-09] MEDS ORDERED: Magnesium 1 Gm / 100 Ml D5W*** 100 ML IV ONE ×3 (06:21→06:36)
[2022-01-09] MEDS ORDERED: Sodium Chloride 0.9% 1000 ML 1,000 ML IV SCH (06:45)
[2022-01-09] MEDS ORDERED: POTASSIUM CHLORIDE 20 mEq IN WATER 100ML 20 MEQ/100 ML BAG IV SCH (07:00)
[2022-01-09] MEDS ORDERED: Potassium Chloride 40 MEQ/20 ML VIAL 40 MEQ, XYLOCAINE 1% HCL 20 ML MDV*** 2 ML in Sodi... IV ONE ×2 (08:00→16:00)
[2022-01-09] MEDS ORDERED: DUONEB 0.5-3 MG/3 ml Neb IH PRN (08:49)
[2022-01-09] MEDS: Coreg 3.125 MG PO SCH ×2 (09:44→21:13)
[2022-01-09] MEDS: Singulair 10 MG PO SCH (09:44)
[2022-01-09] MEDS: ECOTRIN 81 MG PO SCH (09:44)
[2022-01-09] MEDS: FEOSOL 325 MG PO SCH (09:44)
[2022-01-09] MEDS: Imdur 60MG PO SCH (09:44)
[2022-01-09] MEDS: SYNTHROID 88 MCG PO SCH (09:44)
[2022-01-09] MEDS: Protonix 40MG Tablet PO SCH ×2 (09:44→21:25)
[2022-01-09] MEDS: VITAMIN D PO SCH (09:44)
[2022-01-09] MEDS: PROAMATINE PO SCH ×3 (09:45→19:01)
[2022-01-09] MEDS: ZYLOPRIM 300 MG PO SCH (09:47)
[2022-01-09] MEDS ORDERED: FLUZONE HIGH-DOSE QUAD 2022-23 IM ONE (10:00)
[2022-01-09] MEDS ORDERED: NON-FORMULARY ITEM (Bumetanide [Bumetanide] 2 MG Tablet) PO SCH (10:00)
[2022-01-09] MEDS ORDERED: BUMEX 1 MG PO SCH (10:00)
[2022-01-09] MEDS ORDERED: ISOSORBIDE MONONITRATE 120 MG PO SCH (10:00)
[2022-01-09] MEDS ORDERED: NON-FORMULARY ITEM (Ferrous Gluconate [Ferrous Gluconate] 324 MG Tablet) PO SCH (10:00)
[2022-01-09] MEDS ORDERED: NON-FORMULARY ITEM (Midodrine Hcl [Midodrine Hcl] 10 MG Tablet) PO SCH (10:00)
[2022-01-09] MEDS ORDERED: Klor Con PO SCH (10:00)
--- NOTE | 2022-01-09 19:49 | PCM.HP ---
History of Present Illness - Chief Complaint Chief Complaint: weakness for 1-2 days History of Present Illness: is a 76 year old female.presents to the emergency department with a low potassium level. Patient was called by the turbine inspector office and told to come the emergency room because her potassium was two-point something. They did not recall the exact value. Patient is completely asymptomatic. Patient ordinarily takes 2 potassium pills in the morning and 2 in the evening. After her blood draw, she has taken 2 of her potassium pills but has not taken 2 in the evening yet. Patient blood draw was performed at 8 AM and another hospital. Patient arrives to this hospital 11 hours later. We will redraw her and treat her according to her most recent labs. Patient has history of CHF, hyperlipidemia, gout, hypothyroidism, gastroesophageal reflux disease and hypertension. Timing/Duration: today Modifying Factors: Improves With: nothing Associated Symptoms: denies symptoms - Review of Systems Constitutional: Weakness, No Fever, No Chills Eyes: No Symptoms Ears, Nose, & Throat: No Symptoms Respiratory: No Cough, No Short Of Breath Cardiac: No Chest Pain, No Edema, No Syncope Abdominal/Gastrointestinal: No Abdominal Pain, No Nausea, No Vomiting, No Diarrhea Genitourinary Symptoms: No Dysuria Musculoskeletal: No Back Pain, No Neck Pain Skin: No Rash Neurological: No Dizziness, No Focal Weakness, No Sensory Changes Psychological: No Symptoms Endocrine: No Symptoms Hematologic/Lymphatic: No Symptoms Immunological/Allergic: No Symptoms Medications & Allergies Home Medications: Home Medication List Levothyroxine Sodium 88 Mcg [Synthroid 88 Mcg] 88 mcg PO DAILY 03/18/12 [History Confirmed 01/09/22] Potassium Chloride Tab* [Klor Con] 40 meq PO BID 03/18/12 [History Confirmed 01/08/22] Aspirin EC 81 mg [Ecotrin 81 mg] 81 mg PO DAILY 07/11/21 [History Confirmed 01/09/22] Montelukast Sodium 10 mg [Singulair 10 MG] 10 mg PO DAILY 07/11/21 [History Confirmed 01/09/22] Allopurinol 300 mg [Zyloprim 300 mg] 300 mg PO DAILY 01/08/22 [History Confirmed 01/09/22] Atorvastatin Calcium [Lipitor 40Mg] 40 mg PO QHS 01/08/22 [History Confirmed 01/09/22] Bumetanide 2 mg PO BID 01/08/22 [History Confirmed 01/09/22] Ipratropium/Albuterol Sulfate [Iprat-Albut 0.5-3(2.5) mg/3 ml] 3 ml NEB QID PRN PRN 01/08/22 [History Confirmed 01/09/22] Midodrine HCl 10 mg PO TID 01/08/22 [History Confirmed 01/08/22] PANTOPRAZOLE 40 mg Tablet [Protonix 40MG Tablet] 40 mg PO BID 01/08/22 [History Confirmed 01/09/22] metOLazone [Metolazone] 2.5 mg PO UD 01/08/22 [History Confirmed 01/08/22] Carvedilol 3.125 mg [Coreg 3.125 MG] 3.125 mg PO BID 01/09/22 [History Confirmed 01/09/22] Cholecalciferol (Vitamin D3) [Vitamin D] 1,000 unit PO DAILY 01/09/22 [History Confirmed 01/09/22] Ferrous Gluconate 324 mg PO DAILY 01/09/22 [History Confirmed 01/09/22] Isosorbide Mononitrate [Isosorbide Mononitrate ER] 120 mg PO DAILY 01/09/22 [History Confirmed 01/09/22] Metolazone 2.5 mg [Zaroxolyn 2.5 MG] 2.5 mg PO UD 01/09/22 [History Confirmed 01/09/22] Potassium Chloride Tab* [Klor Con] 40 meq PO BID 01/09/22 [History Confirmed 01/09/22] Allergies/Adverse Reactions: Allergies Allergy/AdvReac Type Severity Reaction Status Date / Time codeine [Codeine] Allergy Mild Rash Verified 01/09/22 02:16 - Past Medical History Past Medical History: Yes Neurological History: No Pertinent History ENT History: Cataracts Cardiac History: Congestive Heart Failure, Coronary Artery Disease, High Cholesterol, Hypertension, Other Respiratory History: Asthma, Bronchitis, COPD Endocrine Medical History: Hypothyroidism Musculoskelatal History: No Pertinent History GI Medical History: GERD, GI Bleed, Hernia History: Renal Disease Pyscho-Social History: No Pertinent History Reproductive Disorders: Abnormal Uterine Bleeding Comment: anemia, pacemaker, watchman device - Female History Hx Last Menstrual Period: N/A Are you now?: No - Past Surgical History Past Surgical History: Yes Neuro Surgical History: No Pertinent History Cardiac History: Cardiac Catheterization, Cardiac Stent Respiratory Surgery: No Pertinent History GI Surgical History: Cholecystectomy Genitourinary Surgical Hx: No Pertinent History Musculskeletal Surgical Hx: No Pertinent History Female Surgical History: Hysterectomy Other Surgical History: 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, pacemaker, watchman device - Social History Smoking Status: Never smoker Exposure to second hand smoke: No Alcohol: None Drug Use: none - Physical Exam Vital Signs: Vital Signs - 24 hr Temp Pulse Resp BP Pulse Ox 01/09/22 15:37 97.9 F 70 15 142/70 99 01/09/22 12:00 97.8 F 70 16 133/79 96 01/09/22 07:51 97.8 F 70 16 139/62 98 01/09/22 07:19 92 L 01/09/22 06:00 98 F 70 18 148/67 96 01/09/22 05:17 71 16 92 L 01/09/22 04:00 16 01/09/22 02:20 97.9 F 70 17 155/71 99 01/09/22 02:00 98 01/09/22 01:00 70 16 150/75 97 01/09/22 00:00 70 14 158/73 97 01/08/22 23:00 70 14 160/82 99 01/08/22 22:18 99 01/08/22 22:00 70 18 173/82 99 01/08/22 21:00 70 18 152/65 98 01/08/22 20:07 70 16 173/77 100 General Appearance: no apparent distress, alert Neurologic Exam: alert, oriented x 3, cooperative, normal mood/affect, nml cerebellar function, nml station & gait, sensation nml, No motor deficits Eye Exam: PERRL/EOMI, eyes nml inspection Ears, Nose, Throat Exam: normal ENT inspection, TMs normal, pharynx normal, moist mucous membranes Neck Exam: normal inspection, non-tender, supple, full range of motion Respiratory Exam: normal breath sounds, lungs clear, No respiratory distress Cardiovascular Exam: regular rate/rhythm, normal heart sounds, normal peripheral pulses Gastrointestinal/Abdomen Exam: soft, normal bowel sounds, No tenderness, No mass Back Exam: normal inspection, normal range of motion, No CVA tenderness, No vert ebral tenderness Extremity Exam: normal inspection, normal range of motion, pelvis stable Skin Exam: normal color, warm, dry, No rash Lymphatic Exam: No adenopathy Results - Labs Lab/Micro Results: Lab Results-Last 24 Hours 01/08/22 01/08/22 01/08/22 Range/Units 21:38 23:28 23:52 Sodium 139 138 (137-145) mmol/L Potassium 2.5 L* 2.4 L* (3.5-5.1) mmol/L Chloride 92 L 93 L (98-107) mmol/L Carbon Dioxide 36 H 36 H (22-30) mmol/L Anion Gap 13.0 11.6 (5-15) MEQ/L BUN 43 H 41 H (7-17) mg/dL Creatinine 2.39 H 2.27 H (0.52-1.04) mg/dL Estimated GFR 20.9 22.1 ML/MIN Glucose 135 H 130 H (74-106) mg/dL Calcium 8.9 8.8 (8.4-10.2) mg/dL Magnesium (1.6-2.3) mg/dL Total Bilirubin (0.2-1.3) mg/dL AST (14-36) U/L ALT (0-35) U/L Alkaline Phosphatase (38-126) U/L Serum Total Protein (6.3-8.2) g/dL Albumin (3.5-5.0) g/dL Influenza Type A Ag NEGATIVE (NEGATIVE) Influenza Type B Ag NEGATIVE (NEGATIVE) RSV (PCR) NEGATIVE (Negative) SARS-CoV-2 (PCR) POSITIVE A (NEGATIVE) 01/09/22 01/09/22 01/09/22 Range/Units 05:14 05:14 14:52 Sodium 138 (137-145) mmol/L Potassium 2.4 L* 2.7 L* (3.5-5.1) mmol/L Chloride 96 L (98-107) mmol/L Carbon Dioxide 34 H (22-30) mmol/L Anion Gap 10.6 (5-15) MEQ/L BUN 41 H (7-17) mg/dL Creatinine 1.99 H (0.52-1.04) mg/dL Estimated GFR 25.8 ML/MIN Glucose 116 H (74-106) mg/dL Calcium 8.4 (8.4-10.2) mg/dL Magnesium 1.3 L (1.6-2.3) mg/dL Total Bilirubin 1.10 (0.2-1.3) mg/dL AST 33 (14-36) U/L ALT 16 (0-35) U/L Alkaline Phosphatase 97 (38-126) U/L Serum Total Protein 7.2 (6.3-8.2) g/dL Albumin 4.0 (3.5-5.0) g/dL Influenza Type A Ag (NEGATIVE) Influenza Type B Ag (NEGATIVE) RSV (PCR) (Negative) SARS-CoV-2 (PCR) (NEGATIVE) - Other Procedures and Tests Respiratory Therapy 01/09/22 05:09 Oxygen Nasal Cannula 2 lpm 01/09/22 05:18 Respiratory Therapy Assessment DAILY Assessment/Plan (1) Hypokalemia Current Visit: Yes Status: Acute Assessment & Plan: Chief Complaint Diagnosis HYPOKALEMIA Allergies Allergy/AdvReac Type Severity Reaction Status Date / Time codeine [Codeine] Allergy Mild Rash Verified 01/09/22 02:16 Vital Signs (Last 24 hours) Temp Pulse Resp BP Pulse Ox 01/09/22 15:37 97.9 F 70 15 142/70 99 01/09/22 12:00 97.8 F 70 16 133/79 96 01/09/22 07:51 97.8 F 70 16 139/62 98 01/09/22 07:19 92 L 01/09/22 06:00 98 F 70 18 148/67 96 01/09/22 05:17 71 16 92 L 01/09/22 04:00 16 01/09/22 02:20 97.9 F 70 17 155/71 99 01/09/22 02:00 98 01/09/22 01:00 70 16 150/75 97 01/09/22 00:00 70 14 158/73 97 01/08/22 23:00 70 14 160/82 99 01/08/22 22:18 99 01/08/22 22:00 70 18 173/82 99 01/08/22 21:00 70 18 152/65 98 01/08/22 20:07 70 16 173/77 100 Home Medications Medication Instructions Recorded Confirmed Last Taken Type Allopurinol 300 mg [Zyloprim 300 mg PO DAILY 01/08/22 01/09/22 01/08/22 10:00 History 300 mg] Atorvastatin Calcium [Lipitor 40Mg] 40 mg PO QHS 01/08/22 01/09/22 01/07/22 22:00 History Bumetanide 2 mg PO BID 01/08/22 01/09/22 01/08/22 16:00 History Ipratropium/Albuterol Sulfate 3 ml NEB QID PRN PRN 01/08/22 01/09/22 Unknown History [Iprat-Albut 0.5-3(2.5) mg/3 ml] Midodrine HCl 10 mg PO TID 01/08/22 01/08/22 Unknown History PANTOPRAZOLE 40 mg Tablet 40 mg PO BID 01/08/22 01/09/22 01/08/22 10:00 History [Protonix 40MG Tablet] metOLazone [Metolazone] 2.5 mg PO UD 01/08/22 01/08/22 Unknown History Carvedilol 3.125 mg [Coreg 3.125 mg PO BID 01/09/22 01/09/22 01/08/22 10:00 History 3.125 MG] Cholecalciferol (Vitamin D3) 1,000 unit PO DAILY 01/09/22 01/09/22 01/08/22 10:00 History [Vitamin D] Ferrous Gluconate 324 mg PO DAILY 01/09/22 01/09/22 01/08/22 10:00 History Isosorbide Mononitrate [Isosorbide 120 mg PO DAILY 01/09/22 01/09/22 01/08/22 10:00 History Mononitrate ER] Metolazone 2.5 mg [Zaroxolyn 2.5 2.5 mg PO UD 01/09/22 01/09/22 Unknown History MG] Potassium Chloride Tab* [Klor Con] 40 meq PO BID 01/09/22 01/09/22 01/08/22 10:00 History Current Medications Generic Name Dose Route Start Last Admin Trade Name Freq PRN Reason Stop Dose Admin Acetaminophen 650 mg 01/09/22 01:42 Acetaminophen 325 Mg Tablet PO 02/08/22 01:41 Q4H PRN PRN PAIN, FEVER, HEADACHE Allopurinol 300 mg 01/09/22 10:00 01/09/22 09:47 Allopurinol 300 Mg Tablet PO 02/08/22 09:59 300 mg DAILY JORGE Administration Aspirin 81 mg 01/09/22 10:00 01/09/22 09:44 Aspirin 81 Mg Tablet.Ec PO 02/08/22 09:59 81 mg DAILY JORGE Administration Carvedilol 3.125 mg 01/09/22 10:00 01/09/22 09:44 Carvedilol 3.125 Mg Tablet PO 02/08/22 09:59 3.125 mg BID JORGE Administration Cholecalciferol 1,000 unit 01/09/22 10:00 01/09/22 09:44 Cholecalciferol (Vitamin D3) 1000 Unit Tablet PO 02/08/22 09:59 1,000 unit DAILY JORGE Administration Ferrous Sulfate 325 mg 01/09/22 10:00 01/09/22 09:44 Ferrous Sulfate 325 Mg Tablet PO 02/08/22 09:59 325 mg DAILY JORGE Administration Sodium Chloride 1,000 mls @ 100 mls/hr 01/09/22 06:45 01/09/22 06:35 Sodium Chloride 0.9% 1000 Ml IV 02/08/22 06:44 100 mls/hr .Q10H JORGE Administration Potassium Chloride 40 meq/ 272 mls @ 68 mls/hr 01/09/22 16:00 01/09/22 15:43 Lidocaine HCl 2 ml/ Sodium IV 01/09/22 19:59 68 mls/hr Chloride 1XONLY ONE Administration Isosorbide Mononitrate 120 mg 01/09/22 10:00 01/09/22 09:44 Isosorbide Mononitrate 60 Mg Tab PO 02/08/22 09:59 120 mg DAILY JORGE Administration Levothyroxine Sodium 88 mcg 01/09/22 10:00 01/09/22 09:44 Levothyroxine Sodium 88 Mcg Tablet PO 02/08/22 09:59 88 mcg DAILY JORGE Administration Metolazone 2.5 mg 01/10/22 10:00 Metolazone 2.5 Mg Tablet PO 02/09/22 09:59 TuThSa JORGE Midodrine 10 mg 01/09/22 09:00 01/09/22 19:01 Midodrine Hcl 5 Mg Tablet PO 02/08/22 08:59 10 mg 0900,1400,1800 JORGE Administration Montelukast Sodium 10 mg 01/09/22 10:00 01/09/22 09:44 Montelukast Sodium 10 Mg Tablet PO 02/08/22 09:59 10 mg DAILY JORGE Administration Ondansetron HCl 4 mg 01/09/22 01:42 Ondansetron Hcl 4 Mg/2 Ml Vial IV 02/08/22 01:41 Q6H PRN PRN NAUSEA/VOMITING Pantoprazole Sodium 40 mg 01/09/22 10:00 01/09/22 09:44 Protonix (Pantoprazole) 40 Mg Tablet PO 02/08/22 09:59 40 mg BID JORGE Administration Potassium Chloride 40 meq 01/09/22 22:00 Potassium Chloride Tab 10 Meq Tab PO 02/08/22 21:59 BID JORGE Simvastatin 40 mg 01/09/22 22:00 Simvastatin 20 Mg Tablet PO 02/08/22 21:59 QHS JORGE Discontinued Medications Generic Name Dose Route Start Last Admin Trade Name Freq PRN Reason Stop Dose Admin Albuterol/Ipratropium 3 ml 01/09/22 08:49 Ipratropium/Albuterol Sulfate 3 Ml Ampul.Neb IH 02/08/22 08:48 QID PRN PRN SHORTNESS OF BREATH/WHEEZING Bumetanide 2 mg 01/09/22 10:00 01/09/22 12:11 Bumetanide 1 Mg Tablet PO 02/08/22 09:59 Not Given BID DIURETIC JORGE Potassium Chloride 20 meq in 100 mls @ 50 mls/hr 01/08/22 20:01 01/08/22 20:07 Potassium Chloride 20 Meq In Water 100ml IV 01/08/22 22:00 50 mls/hr STAT ONE Administration Sodium Chloride 1,000 mls @ 100 mls/hr 01/08/22 20:15 01/08/22 20:08 Sodium Chloride 0.9% 1000 Ml IV 02/07/22 20:14 100 mls/hr .Q10H JORGE Administration Potassium Chloride Confirm 01/08/22 20:05 Potassium Chloride 20 Meq In Water 100ml Administered 01/08/22 20:06 Dose 100 mls @ ud IV .STK-MED ONE Potassium Chloride Confirm 01/09/22 00:30 Potassium Chloride 20 Meq In Water 100ml Administered 01/09/22 00:31 Dose 100 mls @ ud IV .STK-MED ONE Potassium Chloride 20 meq in 100 mls @ 50 mls/hr 01/09/22 00:33 01/09/22 00:38 Potassium Chloride 20 Meq In Water 100ml IV 01/09/22 02:32 50 mls/hr STAT ONE Administration Sodium Chloride Confirm 01/08/22 20:04 Sodium Chloride 0.9% 1000 Ml Administered 01/08/22 20:05 Dose 1,000 mls @ ud .ROUTE .STK-MED ONE Magnesium Sulfate/Dextrose 100 mls @ 200 mls/hr 01/09/22 06:21 01/09/22 06:33 Magnesium 1 Gm / 100 Ml D5w IV 01/09/22 06:50 200 mls/hr STAT ONE Administration Magnesium Sulfate/Dextrose Confirm 01/09/22 06:34 Magnesium 1 Gm / 100 Ml D5w Administered 01/09/22 06:35 Dose 100 mls @ ud IV .STK-MED ONE Magnesium Sulfate/Dextrose 100 mls @ 200 mls/hr 01/09/22 06:36 01/09/22 06:38 Magnesium 1 Gm / 100 Ml D5w IV 01/09/22 06:50 Not Given ONCE ONE Potassium Chloride 40 meq/ 272 mls @ 68 mls/hr 01/09/22 08:00 01/09/22 07:59 Lidocaine HCl 2 ml/ Sodium IV 01/09/22 11:59 68 mls/hr Chloride 1XONLY ONE Administration Magnesium Oxide 400 mg 01/08/22 21:23 01/08/22 21:27 Magnesium Oxide 400 Mg Tablet PO 01/08/22 21:24 400 mg STAT ONE Administration Magnesium Oxide Confirm 01/08/22 21:26 Magnesium Oxide 400 Mg Tablet Administered 01/08/22 21:27 Dose 400 mg .ROUTE .STK-MED ONE Potassium Chloride 20 meq 01/08/22 20:02 01/08/22 20:08 Potassium Chloride Tab 10 Meq Tab PO 01/08/22 20:03 20 meq STAT ONE Administration Potassium Chloride Confirm 01/08/22 20:04 Potassium Chloride Tab 10 Meq Tab Administered 01/08/22 20:05 Dose 20 meq PO .STK-MED ONE Potassium Chloride 20 meq 01/08/22 22:31 01/08/22 22:33 Potassium Chloride Tab 10 Meq Tab PO 01/08/22 22:32 20 meq STAT ONE Administration Potassium Chloride Confirm 01/08/22 22:32 Potassium Chloride Tab 10 Meq Tab Administered 01/08/22 22:33 Dose 20 meq PO .STK-MED ONE Potassium Chloride 20 meq 01/09/22 10:00 Potassium Chloride Tab 10 Meq Tab PO 02/08/22 09:59 DAILY JORGE Intake & Output (Last 24 hours) 01/07/22 01/08/22 01/09/22 01/10/22 11:59 11:59 11:59 11:59 Intake Total 443 360 Output Total 600 500 Balance -157 -140 Weight 76 kg Laboratory Results (Last 24 hours) 01/09/22 01/09/22 01/09/22 14:52 05:14 05:14 Sodium 138 Potassium 2.7 L* 2.4 L* Chloride 96 L Carbon Dioxide 34 H Anion Gap 10.6 BUN 41 H Creatinine 1.99 H Estimated GFR 25.8 Glucose 116 H Calcium 8.4 Magnesium 1.3 L Total Bilirubin 1.10 AST 33 ALT 16 Alkaline Phosphatase 97 Serum Total Protein 7.2 Albumin 4.0 Influenza Type A Ag Influenza Type B Ag RSV (PCR) SARS-CoV-2 (PCR) 01/08/22 01/08/22 01/08/22 23:52 23:28 21:38 Sodium 138 139 Potassium 2.4 L* 2.5 L* Chloride 93 L 92 L Carbon Dioxide 36 H 36 H Anion Gap 11.6 13.0 BUN 41 H 43 H Creatinine 2.27 H 2.39 H Estimated GFR 22.1 20.9 Glucose 130 H 135 H Calcium 8.8 8.9 Magnesium Total Bilirubin AST ALT Alkaline Phosphatase Serum Total Protein Albumin Influenza Type A Ag NEGATIVE Influenza Type B Ag NEGATIVE RSV (PCR) NEGATIVE SARS-CoV-2 (PCR) POSITIVE A Orders (Last 24 hours) Category Date Time Status Bedrest TOLERATED Activity 01/09/22 01:42 Active Stained Glass Window Designer STAT Care 01/08/22 19:27 Completed EKG-ER Only STAT Care 01/08/22 19:27 Completed IV Insertion STAT Care 01/08/22 19:27 Completed Order K Level 2 hours post-inf 2 HRS POST K-INFUSED Care 01/09/22 10:[address] in Observation ROUTINE Care 01/09/22 01:42 Active Telemetry q4h Care 01/08/22 20:01 Completed Telemetry q4h Care 01/09/22 00:33 Active Cardio-Pulmonary Rehab .as ordered Cons 01/09/22 10:00 Active Consult Nephrology ROUTINE Cons 01/09/22 12:10 Active House Regular Diet Diet 01/09/22 Breakfast Active BMP Stat Lab 01/08/22 21:38 Completed BMP Stat Lab 01/08/22 23:52 Completed CBC W DIFF Stat Lab 01/08/22 19:29 Completed CMP AM.LAB Lab 01/09/22 05:14 Completed CMP Stat Lab 01/08/22 19:29 Completed COVID AG -BINAX NOW RAPID TEST Routine Lab 01/10/22 05:00 Ordered COVID/FLU/RSV Panel Stat Lab 01/08/22 23:28 Completed MAGNESIUM AM.LAB Lab 01/10/22 04:00 Ordered MAGNESIUM Stat Lab 01/08/22 19:29 Completed MAGNESIUM Stat Lab 01/09/22 05:14 Completed Potassium (Lab Test) [Potassium] Stat Lab 01/09/22 14:52 Completed Acetaminophen 325 mg [Tylenol 325 mg] Med 01/09/22 01:42 Active 650 mg PO Q4H PRN PRN Albuterol/Ipratropium 3ml Neb* [DUONEB 0.5-3 MG/3 ml Med 01/09/22 08:49 Discontinued Neb] 3 ml IH QID PRN PRN Allopurinol 300 mg [Zyloprim 300 mg] Med 01/09/22 10:00 Active 300 mg PO DAILY Aspirin EC 81 mg [Ecotrin 81 mg] Med 01/09/22 10:00 Active 81 mg PO DAILY Bumetanide 1 mg [Bumex 1 mg] Med 01/09/22 10:00 Discontinued 2 mg PO BID DIURETIC Carvedilol 3.125 mg [Coreg 3.125 MG] Med 01/09/22 10:00 Active 3.125 mg PO BID Cholecalciferol (Vitamin D3) [Vitamin D] Med 01/09/22 10:00 Active 1,000 unit PO DAILY Ferrous Sulfate 325 mg [Feosol 325 mg] Med 01/09/22 10:00 Active 325 mg PO DAILY Flu Vacc [id number](65Yr Up)/Pf [Fluzone High-Dose Quad Med 01/09/22 10:00 Discontinued ] 240 mcg IM .ONCE ONE Isosorbide Mononitrate 60 mg [Imdur 60MG] Med 01/09/22 10:00 Active 120 mg PO DAILY Levothyroxine Sodium 88 Mcg [Synthroid 88 Mcg] Med 01/09/22 10:00 Active 88 mcg PO DAILY Magnesium Oxide 400 mg [Mag-Ox 400] Med 01/08/22 21:26 Discontinued 400 mg .ROUTE .STK-MED ONE Magnesium Oxide 400 mg [Mag-Ox 400] Med 01/08/22 21:23 Discontinued 400 mg PO STAT ONE Magnesium Sulfate 1 gm/100 ml* [Magnesium 1 Gm / 100 Ml Med 01/09/22 06:36 Discontinued D5W] 100 ml IV ONCE Magnesium Sulfate 1 gm/100 ml* [Magnesium 1 Gm / 100 Ml Med 01/09/22 06:21 Discontinued D5W] 100 ml IV STAT Magnesium Sulfate 1 gm/100 ml* [Magnesium 1 Gm / 100 Ml Med 01/09/22 06:34 Discontinued D5W] 100 ml IV UD Metolazone 2.5 mg [Zaroxolyn 2.5 MG] Med 01/10/22 10:00 Active 2.5 mg PO TuThSa Midodrine HCl [Proamatine] Med 01/09/22 09:00 Active 10 mg PO 0900,1400,1800 Montelukast Sodium 10 mg [Singulair 10 MG] Med 01/09/22 10:00 Active 10 mg PO DAILY NaCl 0.9% 1000 ml [Sodium Chloride 0.9% 1000 ML] 000 Med 01/08/22 20:04 Discontinued ml .ROUTE UD NaCl 0.9% 1000 ml [Sodium Chloride 0.9% 1000 ML] 1,000 Med 01/08/22 20:15 Discontinued ml IV 100 mls/hr NaCl 0.9% 1000 ml [Sodium Chloride 0.9% 1000 ML] 1,000 [facility] 01/09/22 06:45 Active ml IV 100 mls/hr Ondansetron HCl 4 mg/2 ml [Zofran 4 MG/2 ML VIAL] [facility] 01/09/22 01:42 Act stan 4 mg IV Q6H PRN PRN PANTOPRAZOLE 40 mg Tablet [Protonix 40MG Tablet] [facility] 01/09/22 10:00 Active 40 mg PO BID Potassium Chloride 20Meq/100Ml [POTASSIUM CHLORIDE 20 [facility] 01/08/22 20:01 Discontinued mEq IN WATER 100ML] 20 meq in 100 ml IV STAT Potassium Chloride 20Meq/100Ml [POTASSIUM CHLORIDE 20 [facility] 01/09/22 00:33 Discontinued mEq IN WATER 100ML] 20 meq in 100 ml IV STAT Potassium Chloride 20Meq/100Ml [POTASSIUM CHLORIDE 20 [facility] 01/08/22 20:05 Discontinued mEq IN WATER 100ML] 100 ml IV UD Potassium Chloride 20Meq/100Ml [POTASSIUM CHLORIDE 20 [facility] 01/09/22 00:30 Discontinued mEq IN WATER 100ML] 100 ml IV UD Potassium Chloride Tab* [Klor Con] [facility] 01/08/22 20:04 Discontinued 20 meq PO .STK-MED ONE Potassium Chloride Tab* [Klor Con] [facility] 01/08/22 22:32 Discontinued 20 meq PO .STK-MED ONE Potassium Chloride Tab* [Klor Con] [facility] 01/09/22 10:00 Discontinued 20 meq PO DAILY Potassium Chloride Tab* [Klor Con] [facility] 01/08/22 20:02 Discontinued 20 meq PO STAT ONE Potassium Chloride Tab* [Klor Con] [facility] 01/08/22 22:31 Discontinued 20 meq PO STAT ONE Potassium Chloride Tab* [Klor Con] [facility] 01/09/22 22:00 Active 40 meq PO BID Potassium Cl 40 Meq/20 ml Vial [Potassium Chloride 40 [facility] 01/09/22 08:00 Discontinued MEQ/20 ML VIAL] 40 meq Lidocaine HCl 1% 20 ml Mdv [Xylocaine 1% HCl 20 ml Mdv] 2 ml NaCl 0.9% 250 ml [Sodium Chloride 0.9% 250 ML] 250 ml IV 1XONLY Potassium Cl 40 Meq/20 ml Vial [Potassium Chloride 40 [facility] 01/09/22 16:00 Ac tive MEQ/20 ML VIAL] 40 meq Lidocaine HCl 1% 20 ml Mdv [Xylocaine 1% HCl 20 ml Mdv] 2 ml NaCl 0.9% 250 ml [Sodium Chloride 0.9% 250 ML] 250 ml IV 1XONLY Simvastatin 20Mg [Zocor 20Mg] Med 01/09/22 22:00 Active 40 mg PO QHS Oxygen Nasal Cannula 2 lpm RT 01/09/22 05:09 Active Pulse Oximetry ROUTINE RT 01/09/22 01:42 Active RT Screen per Nursing Assess ONCE RT 01/09/22 04:00 Completed Respiratory Therapy Assessment DAILY RT 01/09/22 05:18 Active Transfer Order Routine Transfer 01/09/22 Completed Patient Care Notes (Last 24 hours) 01/09/22 15:20 Nursing Note by HAYES LIRA DR.'S OFFICE CALLED AND REQUESTED A CURRENT MEDICATION LIST. CURRENT MEDICATION LIST FAXED TO DR. MELCHOR'S OFFICE AT THIS TIME. Initialized on 01/09/22 15:20 - END OF NOTE 01/09/22 12:23 (created 01/09/22 12:26) Nursing Note by Pratima Camacho CALLED CONSULT TO DR. MELCHOR'S OFFICE Initialized on 01/09/22 12:26 - END OF NOTE 01/09/22 07:08 Nursing Note by Annette Ochoa REPORT AND PT CARE GIVEN OVER TO HAYES RN Initialized on 01/09/22 07:08 - END OF NOTE 01/09/22 06:15 (created 01/09/22 06:17) Nursing Note by Annette Ochoa @0615 DR. RIOS WAS CALLED AND MADE AWARE OF CRITICAL K+ OF 2.4 AND MAG OF 1.3. ALSO MADE AWARE OF ALLERGIES, WHEN MED WAS LAST GIVEN, HOW LONG PT HAS BEEN SL, VITALS AND PHYSICAL ASSESSMENT. DR. RIOS GAVE NEW ORDER FOR: "40MEQ K+ RIDER IVPB PER PROTOCOL" AND " 1GM MAG RIDER IVPB PER PROTOCOL". ALL ORDERS READ BACK AND VERIFIED. Initialized on 01/09/22 06:17 - END OF NOTE 01/09/22 01:40 (created 01/09/22 02:04) Nursing Note by Annette Ochoa @0140 PT ADMITTED TO UNIT, ROOM 116, VIA AND CLINICAL NURSE SHAYY RN. PT IS STABLE. SHAYY DOING INITIAL ADMIT AND ORDER PLACEMENT. PT CURRENTLY RUNNING 20MEQ OF K+ IVPB AND NS@100ML/HR IN L HAND FROM ER. Initialized on 01/09/22 02:04 - END OF NOTE 01/09/22 01:34 (created 01/09/22 02:50) Nursing Note by Annette Ochoa @1034 REPORT RECEIVED FROM ER NURSE BOYD SARMIENTO Initialized on 01/09/22 02:50 - END OF NOTE Code(s): E87.6 - HYPOKALEMIA (2) Acute on chronic renal insufficiency Current Visit: Yes Status: Acute Code(s): N28.9 - DISORDER OF KIDNEY AND URETER, UNSPECIFIED; N18.9 - CHRONIC KIDNEY DISEASE, UNSPECIFIED (3) Atrial fibrillation Current Visit: No Status: Chronic Code(s): I48.91 - UNSPECIFIED ATRIAL FIBRILLATION
[2022-01-09] MEDS: Klor Con PO SCH (21:13)
[2022-01-09] MEDS ORDERED: LIPITOR 40MG PO SCH (22:00)
[2022-01-09] MEDS ORDERED: ZOCOR 20MG PO SCH (22:00)
[2022-01-10 05:14] LABS: Hematocrit 31.3 % (35-47); Hemoglobin 9.7 g/dL (12.0-16.0); Mean Cell Volume 91.5 fL (78-100); Mean Corpuscular Hemoglobin 28.4 pg (26-32); Platelet Count 183 x10^3/uL (150-450); Red Blood Count 3.42 x10^6/uL (4.1-5.4); Red Cell Distribution Width 17.2 % (11.5-14.0); White Blood Count 6.4 x10^3/uL (4.0-10.5)
[2022-01-10 05:43] LABS: ANION GAP 11.5 MEQ/L (5-15); Calcium 8.5 mg/dL (8.4-10.2); Creatinine 1 1.82 mg/dL (0.52-1.04); EST GLOMERULAR FILTRATION RATE 28.6 ML/MIN; Potassium 3.4 mmol/L (3.5-5.1)
[2022-01-10 06:43] VITALS: PULSE 70
[2022-01-10] MEDS: Klor Con PO SCH (08:57)
[2022-01-10] MEDS: Coreg 3.125 MG PO SCH (08:57)
[2022-01-10] MEDS: ECOTRIN 81 MG PO SCH (08:57)
[2022-01-10] MEDS: FEOSOL 325 MG PO SCH (08:57)
[2022-01-10] MEDS: VITAMIN D PO SCH (08:57)
[2022-01-10] MEDS: ZYLOPRIM 300 MG PO SCH (08:58)
[2022-01-10] MEDS: Singulair 10 MG PO SCH (08:58)
[2022-01-10] MEDS: Protonix 40MG Tablet PO SCH (08:58)
[2022-01-10] MEDS: Imdur 60MG PO SCH (08:58)
[2022-01-10] MEDS: SYNTHROID 88 MCG PO SCH (08:59)
[2022-01-10] MEDS: PROAMATINE PO SCH (08:59)
[2022-01-10] MEDS ORDERED: Zaroxolyn 2.5 MG PO SCH (10:00)
[2022-01-10 11:28] VITALS: BP 144/66; O2SAT 98
--- NOTE | 2022-01-10 18:59 | PCM.DS ---
Discharge Summary Date of Admission: 01/09/22 01:40 Admitting Physician: ERNESTINE RIOS Consults: Consults on Case 01/09/22 12:10 Consult Nephrology ROUTINE Primary Care Provider: ERNESTINE RIOS Allergies Allergies codeine [Codeine] Allergy (Mild, Verified 01/09/22 02:16) Rash Hospital Summary - Hospital Course Hospital Course: Chief Complaint Diagnosis weakness for 1-2 days Allergies Allergy/AdvReac Type Severity Reaction Status Date / Time codeine [Codeine] Allergy Mild Rash Verified 01/09/22 02:16 Vital Signs (Last 24 hours) Temp Pulse Resp BP Pulse Ox 01/10/22 11:27 97.3 F 70 16 144/66 98 01/10/22 07:35 96 01/10/22 06:43 97.7 F 70 16 126/66 97 01/10/22 04:00 97.7 F 80 14 127/58 96 01/09/22 23:35 98.0 F 70 15 122/59 94 L 01/09/22 20:04 74 16 98 01/09/22 20:00 97.8 F 71 18 130/62 98 Home Medications Medication Instructions Recorded Confirmed Last Taken Type Allopurinol 300 mg [Zyloprim 300 mg PO DAILY 01/08/22 01/09/22 01/08/22 10:00 History 300 mg] Atorvastatin Calcium [Lipitor 40Mg] 40 mg PO QHS 01/08/22 01/09/22 01/07/22 22:00 History Ipratropium/Albuterol Sulfate 3 ml NEB QID PRN PRN 01/08/22 01/09/22 Unknown History [Iprat-Albut 0.5-3(2.5) mg/3 ml] Midodrine HCl 10 mg PO TID 01/08/22 01/08/22 Unknown History PANTOPRAZOLE 40 mg Tablet 40 mg PO BID 01/08/22 01/09/22 01/08/22 10:00 History [Protonix 40MG Tablet] metOLazone [Metolazone] 2.5 mg PO UD 01/08/22 01/08/22 Unknown History Carvedilol 3.125 mg [Coreg 3.125 mg PO BID 01/09/22 01/09/22 01/08/22 10:00 History 3.125 MG] Cholecalciferol (Vitamin D3) 1,000 unit PO DAILY 01/09/22 01/09/22 01/08/22 10:00 History [Vitamin D] Ferrous Gluconate 324 mg PO DAILY 01/09/22 01/09/22 01/08/22 10:00 History Isosorbide Mononitrate [Isosorbide 120 mg PO DAILY 01/09/22 01/09/22 01/08/22 10:00 History Mononitrate ER] Metolazone 2.5 mg [Zaroxolyn 2.5 2.5 mg PO UD 01/09/22 01/09/22 Unknown History MG] Potassium Chloride Tab* [Klor Con] 40 meq PO BID 01/09/22 01/09/22 01/08/22 10:00 History Current Medications Discontinued Medications Generic Name Dose Route Start Last Admin Trade Name Freq PRN Reason Stop Dose Admin Acetaminophen 650 mg 01/09/22 01:42 Acetaminophen 325 Mg Tablet PO 02/08/22 01:41 Q4H PRN PRN PAIN, FEVER, HEADACHE Albuterol/Ipratropium 3 ml 01/09/22 08:49 Ipratropium/Albuterol Sulfate 3 Ml Ampul.Neb IH 02/08/22 08:48 QID PRN PRN SHORTNESS OF BREATH/WHEEZING Allopurinol 300 mg 01/09/22 10:00 01/10/22 08:58 Allopurinol 300 Mg Tablet PO 02/08/22 09:59 300 mg DAILY JORGE Administration Aspirin 81 mg 01/09/22 10:00 01/10/22 08:57 Aspirin 81 Mg Tablet.Ec PO 02/08/22 09:59 81 mg DAILY JORGE Administration Bumetanide 2 mg 01/09/22 10:00 01/09/22 12:11 Bumetanide 1 Mg Tablet PO 02/08/22 09:59 Not Given BID DIURETIC JORGE Carvedilol 3.125 mg 01/09/22 10:00 01/10/22 08:57 Carvedilol 3.125 Mg Tablet PO 02/08/22 09:59 3.125 mg BID JORGE Administration Cholecalciferol 1,000 unit 01/09/22 10:00 01/10/22 08:57 Cholecalciferol (Vitamin D3) 1000 Unit Tablet PO 02/08/22 09:59 1,000 unit DAILY JORGE Administration Ferrous Sulfate 325 mg 01/09/22 10:00 01/10/22 08:57 Ferrous Sulfate 325 Mg Tablet PO 02/08/22 09:59 325 mg DAILY JORGE Administration Potassium Chloride 20 meq in 100 mls @ 50 mls/hr 01/08/22 20:01 01/08/22 20:07 Potassium Chloride 20 Meq In Water 100ml IV 01/08/22 22:00 50 mls/hr STAT ONE Administration Sodium Chloride 1,000 mls @ 100 mls/hr 01/08/22 20:15 01/08/22 20:08 Sodium Chloride 0.9% 1000 Ml IV 02/07/22 20:14 100 mls/hr .Q10H JORGE Administration Potassium Chloride Confirm 01/08/22 20:05 Potassium Chloride 20 Meq In Water 100ml Administered 01/08/22 20:06 Dose 100 mls @ ud IV .STK-MED ONE Potassium Chloride Confirm 01/09/22 00:30 Potassium Chloride 20 Meq In Water 100ml Administered 01/09/22 00:31 Dose 100 mls @ ud IV .STK-MED ONE Potassium Chloride 20 meq in 100 mls @ 50 mls/hr 01/09/22 00:33 01/09/22 00:38 Potassium Chloride 20 Meq In Water 100ml IV 01/09/22 02:32 50 mls/hr STAT ONE Administration Sodium Chloride Confirm 01/08/22 20:04 Sodium Chloride 0.9% 1000 Ml Administered 01/08/22 20:05 Dose 1,000 mls @ ud .ROUTE .STK-MED ONE Magnesium Sulfate/Dextrose 100 mls @ 200 mls/hr 01/09/22 06:21 01/09/22 06:33 Magnesium 1 Gm / 100 Ml D5w IV 01/09/22 06:50 200 mls/hr STAT ONE Administration Sodium Chloride 1,000 mls @ 100 mls/hr 01/09/22 06:45 01/09/22 06:35 Sodium Chloride 0.9% 1000 Ml IV 02/08/22 06:44 100 mls/hr .Q10H JORGE Administration Magnesium Sulfate/Dextrose Confirm 01/09/22 06:34 Magnesium 1 Gm / 100 Ml D5w Administered 01/09/22 06:35 Dose 100 mls @ ud IV .STK-MED ONE Magnesium Sulfate/Dextrose 100 mls @ 200 mls/hr 01/09/22 06:36 01/09/22 06:38 Magnesium 1 Gm / 100 Ml D5w IV 01/09/22 06:50 Not Given ONCE ONE Potassium Chloride 40 meq/ 272 mls @ 68 mls/hr 01/09/22 08:00 01/09/22 07:59 Lidocaine HCl 2 ml/ Sodium IV 01/09/22 11:59 68 mls/hr Chloride 1XONLY ONE Administration Potassium Chloride 40 meq/ 272 mls @ 68 mls/hr 01/09/22 16:00 01/09/22 15:43 Lidocaine HCl 2 ml/ Sodium IV 01/09/22 19:59 68 mls/hr Chloride 1XONLY ONE Administration Isosorbide Mononitrate 120 mg 01/09/22 10:00 01/10/22 08:58 Isosorbide Mononitrate 60 Mg Tab PO 02/08/22 09:59 120 mg DAILY JORGE Administration Levothyroxine Sodium 88 mcg 01/09/22 10:00 01/10/22 08:59 Levothyroxine Sodium 88 Mcg Tablet PO 02/08/22 09:59 88 mcg DAILY JORGE Administration Magnesium Oxide 400 mg 01/08/22 21:23 01/08/22 21:27 Magnesium Oxide 400 Mg Tablet PO 01/08/22 21:24 400 mg STAT ONE Administration Magnesium Oxide Confirm 01/08/22 21:26 Magnesium Oxide 400 Mg Tablet Administered 01/08/22 21:27 Dose 400 mg .ROUTE .STK-MED ONE Metolazone 2.5 mg 01/10/22 10:00 Metolazone 2.5 Mg Tablet PO 02/09/22 09:59 TuThSa JORGE Midodrine 10 mg 01/09/22 09:00 01/10/22 08:59 Midodrine Hcl 5 Mg Tablet PO 02/08/22 08:59 10 mg 0900,1400,1800 JORGE Administration Montelukast Sodium 10 mg 01/09/22 10:00 01/10/22 08:58 Montelukast Sodium 10 Mg Tablet PO 02/08/22 09:59 10 mg DAILY JORGE Administration Ondansetron HCl 4 mg 01/09/22 01:42 Ondansetron Hcl 4 Mg/2 Ml Vial IV 02/08/22 01:41 Q6H PRN PRN NAUSEA/VOMITING Pantoprazole Sodium 40 mg 01/09/22 10:00 01/10/22 08:58 Protonix (Pantoprazole) 40 Mg Tablet PO 02/08/22 09:59 40 mg BID JORGE Administration Potassium Chloride 20 meq 01/08/22 20:02 01/08/22 20:08 Potassium Chloride Tab 10 Meq Tab PO 01/08/22 20:03 20 meq STAT ONE Administration Potassium Chloride Confirm 01/08/22 20:04 Potassium Chloride Tab 10 Meq Tab Administered 01/08/22 20:05 Dose 20 meq PO .STK-MED ONE Potassium Chloride 20 meq 01/08/22 22:31 01/08/22 22:33 Potassium Chloride Tab 10 Meq Tab PO 01/08/22 22:32 20 meq STAT ONE Administration Potassium Chloride Confirm 01/08/22 22:32 Potassium Chloride Tab 10 Meq Tab Administered 01/08/22 22:33 Dose 20 meq PO .STK-MED ONE Potassium Chloride 20 meq 01/09/22 10:00 Potassium Chloride Tab 10 Meq Tab PO 02/08/22 09:59 DAILY JORGE Potassium Chloride 40 meq 01/09/22 22:00 01/10/22 08:57 Potassium Chloride Tab 10 Meq Tab PO 02/08/22 21:59 40 meq BID JORGE Administration Simvastatin 40 mg 01/09/22 22:00 01/09/22 21:25 Simvastatin 20 Mg Tablet PO 02/08/22 21:59 40 mg QHS JORGE Administration Intake & Output (Last 24 hours) 01/08/22 01/09/22 01/10/22 01/11/22 11:59 11:59 11:59 11:59 Intake Total 443 1780 240 Output Total 600 1150 300 Balance -157 630 -60 Weight 76 kg Laboratory Results (Last 24 hours) 01/10/22 01/10/22 01/10/22 04:35 04:35 04:30 WBC RBC Hgb Hct MCV MCH MCHC RDW Plt Count MPV Sodium 136 L Potassium 3.4 L Chloride 99 Carbon Dioxide 29 Anion Gap 11.5 BUN 33 H Creatinine 1.82 H Estimated GFR 28.6 Glucose 115 H Calcium 8.5 Magnesium 1.6 SARS-CoV-2 Ag (Rapid) NEGATIVE 01/10/22 01/09/22 04:00 22:20 WBC 6.4 RBC 3.42 L Hgb 9.7 L Hct 31.3 L MCV 91.5 MCH 28.4 MCHC 31.0 L RDW 17.2 H Plt Count 183 MPV 10.0 Sodium Potassium 3.1 L Chloride Carbon Dioxide Anion Gap BUN Creatinine Estimated GFR Glucose Calcium Magnesium SARS-CoV-2 Ag (Rapid) Orders (Last 24 hours) Category Date Time Status Discharge Routine Discharge 01/10/22 Ordered BMP AM.LAB Lab 01/10/22 04:35 Completed CBC AM.LAB Lab 01/10/22 04:00 Completed COVID AG -BINAX NOW RAPID TEST Routine Lab 01/10/22 04:30 Completed MAGNESIUM AM.LAB Lab 01/10/22 04:35 Completed Potassium (Lab Test) [Potassium] Urgent Lab 01/09/22 22:20 Completed Metolazone 2.5 mg [Zaroxolyn 2.5 MG] Med 01/10/22 10:00 Discontinued 2.5 mg PO TuThSa Potassium Chloride Tab* [Klor Con] Med 01/09/22 22:00 Discontinued 40 meq PO BID Simvastatin 20Mg [Zocor 20Mg] Med 01/09/22 22:00 Discontinued 40 mg PO QHS Patient Care Notes (Last 24 hours) 01/10/22 09:02 Case Management Note by Marybel Finney S/W PATIENT- SHE CONTINUES TO DENY ANY NEW NEEDS REGARDING DC AT THIS TIME. SHE PLANS TO RETURN HOME TO HER PRIOR LEVEL OF FUNCTIONING AT TIME OF DC Initialized on 01/10/22 09:02 - END OF NOTE - Vitals & Intake/Output Vital Signs: Vital Signs Temperature 97.3 F 01/10/22 11:27 Pulse Rate 70 01/10/22 11:27 Respiratory Rate 16 01/10/22 11:27 Blood Pressure 144/66 01/10/22 11:27 O2 Sat by Pulse Oximetry 98 01/10/22 11:27 Intake & Output: Intake & Output 01/08/22 01/09/22 01/10/22 01/11/22 11:59 11:59 11:59 11:59 Intake Total 443 1780 240 Output Total 600 1150 300 Balance -157 630 -60 Weight 76 kg - Lab Result Diagrams: 01/10/22 04:00 01/10/22 04:35 Lab Results-Last 24 Hrs: Lab Results-Last 24 Hours 01/09/22 01/10/22 01/10/22 Range/Units 22:20 04:00 04:30 WBC 6.4 (4.0-10.5) x10^3/uL RBC 3.42 L (4.1-5.4) x10^6/uL Hgb 9.7 L (12.0-16.0) g/dL Hct 31.3 L (35-47) % MCV 91.5 (78-100) fL MCH 28.4 (26-32) pg MCHC 31.0 L (32-36) g/dL RDW 17.2 H (11.5-14.0) % Plt Count 183 (150-450) x10^3/uL MPV 10.0 (7.5-11.0) fL Sodium (137-145) mmol/L Potassium 3.1 L (3.5-5.1) mmol/L Chloride (98-107) mmol/L Carbon Dioxide (22-30) mmol/L Anion Gap (5-15) MEQ/L BUN (7-17) mg/dL Creatinine (0.52-1.04) mg/dL Estimated GFR ML/MIN Glucose (74-106) mg/dL Calcium (8.4-10.2) mg/dL Magnesium (1.6-2.3) mg/dL SARS-CoV-2 Ag (Rapid) NEGATIVE (NEGATIVE) 01/10/22 01/10/22 Range/Units 04:35 04:35 WBC (4.0-10.5) x10^3/uL RBC (4.1-5.4) x10^6/uL Hgb (12.0-16.0) g/dL Hct (35-47) % MCV (78-100) fL MCH (26-32) pg MCHC (32-36) g/dL RDW (11.5-14.0) % Plt Count (150-450) x10^3/uL MPV (7.5-11.0) fL Sodium 136 L (137-145) mmol/L Potassium 3.4 L (3.5-5.1) mmol/L Chloride 99 (98-107) mmol/L Carbon Dioxide 29 (22-30) mmol/L Anion Gap 11.5 (5-15) MEQ/L BUN 33 H (7-17) mg/dL Creatinine 1.82 H (0.52-1.04) mg/dL Estimated GFR 28.6 ML/MIN Glucose 115 H (74-106) mg/dL Calcium 8.5 (8.4-10.2) mg/dL Magnesium 1.6 (1.6-2.3) mg/dL SARS-CoV-2 Ag (Rapid) (NEGATIVE) - Procedures and Test Procedures and Tests throughout Hospitalization: Therapy Orders & Screens 01/09/22 04:00 RT Screen per Nursing Assess ONCE Comment: Protocol Order Physician Instructions: Greater than 3 points order RT Admission Screen Reason For Exam: Triggered on Admission Diagnosis: HYPOKALEMIA Diagnosis: HYPOKALEMIA Pneumonia: No Home O2: Yes: 2L HS Asthma: No CHF: Yes Home CPAP/BIPAP: No Home Nebs/MDI: Yes Total Points: 13 01/09/22 05:09 Oxygen Nasal Cannula 2 lpm Comment: Diagnosis: HYPOKALEMIA 01/09/22 05:18 Respiratory Therapy Assessment DAILY Comment: Diagnosis: HYPOKALEMIA Discharge Exam General Appearance: no apparent distress, alert Neurologic Exam: alert, oriented x 3, cooperative, normal mood/affect, nml cerebellar function, sensation nml, No motor deficits Eye Exam: PERRL, EOMI, eyes nml inspection Ears, Nose, Throat Exam: normal ENT inspection, pharynx normal, moist mucous membranes Neck Exam: normal inspection, non-tender, supple, full range of motion Respiratory Exam: normal breath sounds, lungs clear, No respiratory distress Cardiovascular Exam: regular rate/rhythm, normal heart sounds Gastrointestinal/Abdomen Exam: soft, No tenderness, No mass Pelvic Exam: deferred Rectal Exam: deferred Back Exam: normal inspection, normal range of motion, No CVA tenderness, No vertebral tenderness Extremity Exam: normal inspection, normal range of motion Skin Exam: normal color, warm, dry Final Diagnosis/Problem List - Final Discharge Diagnosis/Problem (1) Hypokalemia Status: Resolved Code(s): E87.6 - HYPOKALEMIA (2) Acute on chronic renal insufficiency Status: Acute Code(s): N28.9 - DISORDER OF KIDNEY AND URETER, UNSPECIFIED; N18.9 - CHRONIC KIDNEY DISEASE, UNSPECIFIED (3) Atrial fibrillation Status: Chronic Code(s): I48.91 - UNSPECIFIED ATRIAL FIBRILLATION - Discharge Discharge Date: 01/10/22 Disposition: Home, Self-Care Condition: Stable Prescriptions: Continue Potassium Chloride Tab* [Klor Con] 40 meq PO BID Levothyroxine Sodium 88 Mcg [Synthroid 88 Mcg] 88 mcg PO DAILY Montelukast Sodium 10 mg [Singulair 10 MG] 10 mg PO DAILY Aspirin EC 81 mg [Ecotrin 81 mg] 81 mg PO DAILY Allopurinol 300 mg [Zyloprim 300 mg] 300 mg PO DAILY Atorvastatin Calcium [Lipitor 40Mg] 40 mg PO QHS Ipratropium/Albuterol Sulfate [Iprat-Albut 0.5-3(2.5) mg/3 ml] 3 ml NEB QID PRN PRN PRN Reason: Shortness Of Breath/Wheezing metOLazone [Metolazone] 2.5 mg PO UD Midodrine HCl 10 mg PO TID PANTOPRAZOLE 40 mg Tablet [Protonix 40MG Tablet] 40 mg PO BID Ferrous Gluconate 324 mg PO DAILY Metolazone 2.5 mg [Zaroxolyn 2.5 MG] 2.5 mg PO UD Isosorbide Mononitrate [Isosorbide Mononitrate ER] 120 mg PO DAILY Cholecalciferol (Vitamin D3) [Vitamin D] 1,000 unit PO DAILY Carvedilol 3.125 mg [Coreg 3.125 MG] 3.125 mg PO BID Potassium Chloride Tab* [Klor Con] 40 meq PO BID Discontinued Bumetanide 2 mg PO BID Instructions: Hypokalemia (DC) Follow up with: KARYN MELCHOR [CONSULTING PHYSICIAN] - 01/18/22 10:00 am (in [place]) ERNESTINE RIOS MD [Primary Care Provider] - 01/23/22 10:30 am (same day surgery center) Forms: Discharge Instructions
== END 2022-01-10 13:10 | disposition home or self-care (01) ==
LOC: ED 18:30 → MED SURG 01-09 01:40
PROVIDERS: ADMIT General Practice; ATTEND General Practice
DX: E87.6 Hypokalemia (principal); I12.9 Hypertensive chronic kidney disease with stage 1 through stage 4 chronic kidney disease, or unspecified chronic kidney disease; N18.9 Chronic kidney disease, unspecified; U07.1 COVID-19; I48.91 Unspecified atrial fibrillation; I25.10 Atherosclerotic heart disease of native coronary artery without angina pectoris; Z79.899 Other long term (current) drug therapy; Z20.828 Contact with and (suspected) exposure to other viral communicable diseases
CPT/HCPCS: 0241U; 36000; 36415; 80048; 80053; 83735; 84132; 85025; 85027; 87811; 93005; 93041; 93268; 94762; 96376; 99285; G0008; G0378; 90662; J3475; J3480; A9270-GY

== ENCOUNTER 2022-02-04 10:52 | Emergency (ER) | payer MEDICARE ==
[2022-02-04 11:12] VITALS: PULSE 70
[2022-02-04 12:04] LABS: ANION GAP 10.8 MEQ/L (5-15); Creatinine 1 1.43 mg/dL (0.52-1.04); EST GLOMERULAR FILTRATION RATE 37.7 ML/MIN; Potassium 3.2 mmol/L (3.5-5.1)
--- NOTE | 2022-02-04 12:26 | ERPHSYRPT ---
- History of Present Illness Source: patient Exam Limitations: no limitations Patient Subjective Stated Complaint: hypokalemia Triage Nursing Assessment: pt to ED stating Dr Gallego's office instructed her to come to ED this morning after lab work resulted. Pt reports K+ 2.8 per Drs office. hx kidney disease. pt denies complaints at this time, no symptoms reported. Physician History: 76 yo wf w h/o CRI/HTN/hyperlipidemia/CHF/CAD w stent x1/COPD w 2L O2 dep at night presents w hypokalemia per routine labs today at [facility]. Pt is asymptomatic and denies lethargy/chest pain/dyspnea/N/V/D/anorexia. Timing/Duration: today Severity: mild Modifying Factors: Improves With: nothing Associated Symptoms: denies symptoms Allergies/Adverse Reactions: codeine [Codeine] Allergy (Mild, Verified 02/04/22 10:58) Rash Home Medications: Levothyroxine Sodium 88 Mcg [Synthroid 88 Mcg] 88 mcg PO DAILY 03/18/12 [History] Potassium Chloride Tab* [Klor Con] 40 meq PO BID 03/18/12 [History] Aspirin EC 81 mg [Ecotrin 81 mg] 81 mg PO DAILY 07/11/21 [History] Montelukast Sodium 10 mg [Singulair 10 MG] 10 mg PO DAILY 07/11/21 [History] Allopurinol 300 mg [Zyloprim 300 mg] 300 mg PO DAILY 01/08/22 [History] Atorvastatin Calcium [Lipitor 40Mg] 40 mg PO QHS 01/08/22 [History] Ipratropium/Albuterol Sulfate [Iprat-Albut 0.5-3(2.5) mg/3 ml] 3 ml NEB QID PRN PRN 01/08/22 [History] Midodrine HCl 10 mg PO TID 01/08/22 [History] PANTOPRAZOLE 40 mg Tablet [Protonix 40MG Tablet] 40 mg PO BID 01/08/22 [History] metOLazone [Metolazone] 2.5 mg PO UD 01/08/22 [History] Carvedilol 3.125 mg [Coreg 3.125 MG] 3.125 mg PO BID 01/09/22 [History] Cholecalciferol (Vitamin D3) [Vitamin D] 1,000 unit PO DAILY 01/09/22 [History] Ferrous Gluconate 324 mg PO DAILY 01/09/22 [History] Isosorbide Mononitrate [Isosorbide Mononitrate ER] 120 mg PO DAILY 01/09/22 [History] Metolazone 2.5 mg [Zaroxolyn 2.5 MG] 2.5 mg PO UD 01/09/22 [History] Potassium Chloride Tab* [Klor Con] 40 meq PO BID 01/09/22 [History] Hx Tetanus, Diphtheria Vaccination/Date Given: Yes Hx Influenza Vaccination/Date Given: Yes (2021) Hx Pneumococcal Vaccination/Date Given: Yes (2021) Immunizations Up to Date: Yes Travel Risk - International Travel Have you traveled outside of the country in past 3 weeks: No - Coronavirus Screening Are you exhibiting any of the following symptoms?: No Close contact with a COVID-19 positive Pt in past 14-21 Days: No - Vaccine Status Have you recieved a Covid-19 vaccination: Yes 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: [employer] - Vaccination Dates Date of 2cond Vaccination (if applicable): 06/08/20 Comment: BOOSTER 02/15/21 - Review of Systems Constitutional: No Symptoms Eyes: No Symptoms Ears, Nose, & Throat: No Symptoms Respiratory: No Symptoms Cardiac: No Symptoms Abdominal/Gastrointestinal: No Symptoms Genitourinary Symptoms: No Symptoms Musculoskeletal: No Symptoms Skin: No Symptoms Neurological: No Symptoms Psychological: No Symptoms Endocrine: No Symptoms Hematologic/Lymphatic: No Symptoms Immunological/Allergic: No Symptoms - Past Medical History Pertinent Past Medical History: Yes Neurological History: No Pertinent History ENT History: Cataracts Cardiac History: Congestive Heart Failure, Coronary Artery Disease, High Cholesterol, Hypertension, Other Respiratory History: Asthma, Bronchitis, COPD Endocrine Medical History: Hypothyroidism Musculoskeletal History: No Pertinent History GI Medical History: GERD, GI Bleed, Hernia History: Renal Disease Psycho-Social History: No Pertinent History Female Reproductive Disorders: Abnormal Uterine Bleeding Other Medical History: anemia, pacemaker, watchman device - Past Surgical History Past Surgical History: Yes Neuro Surgical History: No Pertinent History Cardiac: Cardiac Catheterization, Cardiac Stent Respiratory: No Pertinent History Gastrointestinal: Cholecystectomy Genitourinary: No Pertinent History Musculoskeletal: No Pertinent History Female Surgical History: Hysterectomy Other Surgical History: 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, pacemaker, watchman device - Social History Smoking Status: Never smoker Exposure to second hand smoke: No Drug Use: none Patient Lives Alone: No Significant Family History: no pertinent family hx - Nursing Vital Signs Nursing Vital Signs: Initial Vital Signs Temperature 97.6 F 02/04/22 10:58 Pulse Rate 70 02/04/22 10:58 Respiratory Rate 18 02/04/22 10:58 Blood Pressure 164/76 02/04/22 10:58 O2 Sat by Pulse Oximetry 100 02/04/22 10:58 Pain Scale Pain Intensity 0 Hypertensive - Physical Exam General Appearance: no apparent distress Eye Exam: PERRL/EOMI, eyes nml inspection Ears, Nose, Throat Exam: normal ENT inspection, TMs normal, pharynx normal, moist mucous membranes Neck Exam: normal inspection, non-tender, supple, full range of motion, No meningismus, No mass, No Brudzinski, No Kernig's, No carotid bruit Respiratory Exam: normal breath sounds, lungs clear, airway intact, No respiratory distress Cardiovascular Exam: regular rate/rhythm, murmur (3/6 ROSARIO) Gastrointestinal/Abdomen Exam: soft, normal bowel sounds Back Exam: normal inspection, normal range of motion Extremity Exam: normal inspection, normal range of motion Neurologic Exam: alert, oriented x 3, cooperative, multimedia technician II-XII nml as tested, normal mood/affect, nml cerebellar function, nml station & gait, sensation nml, No motor deficits, No sensory deficit Skin Exam: normal color Lymphatic Exam: No adenopathy SpO2 Interpretation: normal SpO2: 100 O2 Delivery: Room Air - Course Nursing assessment & vital signs reviewed: Yes EKG Interpreted by Me: RATE (Paced/Rate70/IVCD/Poor Rwave progression/No acute ST segment changes) Ordered Tests: Active Orders 24 hr Category Date Time Status IV Insertion STAT Care 02/04/22 11:33 Completed BMP Stat Lab 02/04/22 11:20 Completed Medication Summary Discontinued Medications Generic Name Dose Route Start Last Admin Trade Name Freq PRN Reason Stop Dose Admin Potassium Chloride 40 meq 02/04/22 12:42 02/04/22 12:56 Potassium Chloride Tab 10 Meq Tab PO 02/04/22 12:43 40 meq STAT ONE Administration Potassium Chloride Confirm 02/04/22 12:55 Potassium Chloride Tab 10 Meq Tab Administered 02/04/22 12:56 Dose 40 meq PO .STK-MED ONE Lab/Rad Data: Laboratory Result Diagrams 02/04/22 11:20 Laboratory Results 02/04/22 Range/Units 11:20 Sodium 138 (137-145) mmol/L Potassium 3.2 L (3.5-5.1) mmol/L Chloride 96 L (98-107) mmol/L Carbon Dioxide 34 H (22-30) mmol/L Anion Gap 10.8 (5-15) MEQ/L BUN 39 H (7-17) mg/dL Creatinine 1.43 H (0.52-1.04) mg/dL Estimated GFR 37.7 ML/MIN Glucose 114 H (74-106) mg/dL Calcium 9.0 (8.4-10.2) mg/dL - Progress Progress: improved Progress Note: 02/04/22 12:45 40mEQ po KCl Counseled pt/family regarding: lab results, diagnosis, need for follow-up - Departure Departure Disposition: Home Clinical Impression: Hypokalemia Condition: Stable Critical Care Time: No Referrals: ERNESTINE RIOS MD [Primary Care Provider] - Follow up/PCP as directed Instructions: Hypokalemia (DC) Additional Instructions: Follow up with your family MD or scientific laboratory supervisor Return to ER as needed Continue taking potassium at home
[2022-02-04] MEDS ORDERED: Klor Con PO ONE ×2 (12:42→12:55)
[2022-02-04 13:03] VITALS: BP 149/82
[2022-02-04 21:27] VITALS: O2SAT 100
== END 2022-02-04 13:08 | disposition home or self-care (01) ==
LOC: ED 10:52
DX: E87.6 Hypokalemia (principal); J44.9 Chronic obstructive pulmonary disease, unspecified; Z99.81 Dependence on supplemental oxygen; I10 Essential (primary) hypertension; E78.00 Pure hypercholesterolemia, unspecified; Z86.79 Personal history of other diseases of the circulatory system; Z79.899 Other long term (current) drug therapy
CPT/HCPCS: 36000; 36415; 80048; 99283; A9270-GY

== ENCOUNTER 2023-06-01 19:58 | Observation (INO) | payer MEDICARE ==
--- NOTE | 2023-06-01 20:49 | ERPHSYRPT ---
- History of Present Illness Time Seen by Provider: 06/01/23 20:31 Historian: patient, family () Exam Limitations: no limitations Patient Subjective Stated Complaint: back pain Triage Nursing Assessment: Pt arrived via wheelchair, spouse at bedside. Pt alert and oriented x4, cooperative. Pt states, "I was sitting in the chair this evening and my back started hurting alot and then I became dizzy". Pt denies any dizziness at this time. Pt was seen by Dr. Rios on 05/26/23 and told she had a diverticulosis flare up. Pt also had an US and had a CT scan. Abd soft with active bs x4 quad, tender to LUQ. Physician History: Since 2 weeks ago pt has had sharp intermittent LUQ abdominal pain with episodes lasting up to 3 minutes; since 2.5 hours ago severe mid to lower back pain with lightheadedness and shortness of air. LBM was today & small. Pt states she started taking antibiotics(flagyl) 3 days ago for diverticulitis. Ptr also c/o a sore throat 2 days ago. Pt denies nausea, vomiting, rash, dysuria. Allergies/Adverse Reactions: codeine [Codeine] Allergy (Mild, Verified 06/01/23 20:16) Rash azithromycin [From Zithromax] Adverse Reaction (Verified 06/01/23 20:16) erythromycin base Adverse Reaction (Verified 06/01/23 20:17) Home Medications: Levothyroxine Sodium 88 Mcg [Synthroid 88 Mcg] 88 mcg PO DAILY 03/18/12 [History] Aspirin EC 81 mg [Ecotrin 81 mg] 81 mg PO DAILY 07/11/21 [History] Montelukast Sodium 10 mg [Singulair 10 MG] 10 mg PO DAILY 07/11/21 [History] Allopurinol 300 mg [Zyloprim 300 mg] 300 mg PO DAILY 01/08/22 [History] Atorvastatin Calcium [Lipitor 40Mg] 20 mg PO QHS 01/08/22 [History] Ipratropium/Albuterol Sulfate [Iprat-Albut 0.5-3(2.5) mg/3 ml] 3 ml NEB QID PRN PRN 01/08/22 [History] PANTOPRAZOLE 40 mg Tablet [Protonix 40MG Tablet] 40 mg PO BID 01/08/22 [History] Carvedilol 3.125 mg [Coreg 3.125 MG] 3.125 mg PO BID 01/09/22 [History] Isosorbide Mononitrate [Isosorbide Mononitrate ER] 120 mg PO DAILY 01/09/22 [History] Potassium Chloride Tab* [Klor Con] 20 meq PO DAILY 01/09/22 [History] Bumetanide 2 mg PO DAILY 06/01/23 [History] Fluticasone/Umeclidin/Vilanter [Trelegy Ellipta 100-62.5-25] 1 puff IH DAILY 06/01/23 [History] Indomethacin 25 mg [Indocin 25 MG] 1 tab PO BID 06/01/23 [History] Metronidazole 500 mg [Flagyl 500 MG] 1 tab PO TID 06/01/23 [History] Hx Tetanus, Diphtheria Vaccination/Date Given: Yes Hx Influenza Vaccination/Date Given: Yes Hx Pneumococcal Vaccination/Date Given: Yes Immunizations Up to Date: Yes Travel Risk - International Travel Have you traveled outside of the country in past 3 weeks: No - Coronavirus Screening Are you exhibiting any of the following symptoms?: Yes Symptoms: Fever, Shortness of Breath, Headaches/Body Aches/Fatigue Close contact with a COVID-19 positive Pt in past 14-21 Days: No - Vaccine Status Have you recieved a Covid-19 vaccination: Yes 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 - Review of Systems Ears, Nose, & Throat: Throat Pain Respiratory: Dyspnea Cardiac: No Chest Pain Abdominal/Gastrointestinal: Abdominal Pain, No Nausea, No Vomiting, No Diarrhea Genitourinary Symptoms: No Dysuria Musculoskeletal: Back Pain Skin: No Rash Neurological: Other (lightheadedness ) - Past Medical History Pertinent Past Medical History: Yes Neurological History: No Pertinent History ENT History: Cataracts Cardiac History: Congestive Heart Failure, Coronary Artery Disease, High Cholesterol, Hypertension, Other Respiratory History: Asthma, Bronchitis, COPD Endocrine Medical History: Hypothyroidism Musculoskeletal History: No Pertinent History GI Medical History: GERD, GI Bleed, Hernia History: Renal Disease Psycho-Social History: No Pertinent History Female Reproductive Disorders: Abnormal Uterine Bleeding Other Medical History: anemia, pacemaker, watchman device - Past Surgical History Past Surgical History: Yes Neuro Surgical History: No Pertinent History Cardiac: Cardiac Catheterization, Cardiac Stent, Pacemaker Respiratory: No Pertinent History Gastrointestinal: Cholecystectomy Genitourinary: No Pertinent History Musculoskeletal: No Pertinent History Female Surgical History: Hysterectomy Other Surgical History: 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, pacemaker, watchman device - Social History Smoking Status: Current every day smoker Exposure to second hand smoke: Yes Drug Use: none Patient Lives Alone: No Significant Family History: no pertinent family hx - Nursing Vital Signs Nursing Vital Signs: Initial Vital Signs Temperature 100.4 F 06/01/23 20:04 Pulse Rate 70 06/01/23 20:04 Respiratory Rate 18 06/01/23 20:04 Blood Pressure 144/80 06/01/23 20:04 O2 Sat by Pulse Oximetry 96 06/01/23 20:04 Pain Scale Pain Intensity [] 10 Pain Intensity 0 - Physical Exam General Appearance: alert Ears, Nose, Throat Exam: TMs normal, dry mucous membranes, No pharyngeal erythema Neck Exam: normal inspection Respiratory Exam: normal breath sounds Cardiovascular Exam: normal heart sounds Gastrointestinal/Abdomen Exam: tenderness (mild LUQ), other (B.S. mildly hyperactive and normotonic) Back Exam: vertebral tenderness (lower thoracic and upper lumbar mild tenderness) Extremity Exam: No pedal edema Neurologic Exam: alert, cooperative Skin Exam: warm, dry, No cyanosis SpO2 Interpretation: normal SpO2: 96 O2 Delivery: Room Air - Course Nursing assessment & vital signs reviewed: Yes EKG Interpreted by Me: RATE (70), Left Addy Deviation, Other (QTc = 497) - CT Exams Abdomen/Pelvis CT Interpretation: Tele-radiologist Report (Multiple colonic diverticula with asymmetric wall thickening involving the descending colon for a maximum length of 3.5 cm. There is mid pericolonic fat stranding. This may suggest acute uncomplicated diverticulitis. Mild right pleural effusion and ascites.) Chest CT Interpretation: Tele-radiologist Report (No acute intrathoracic pathology identified. Small right pleural effusion, mild ascites and cardiomegaly may point towards cardiogenic etiology. Moderate sized hiatal hernia.) Head CT Interpretation: Tele-radiologist Report (No acute intracranial hemorrhage or acute territorial infarction. Age related significant involutional and microvasculoar ischemic chages. Lobulated mucosal thickening in both maxillary sinuses.) Thoracic Spine CT Interpretation: Tele-radiologist Report (Mildly exagerated kyphosis of thoracic spine. Bridging osteophyets involving anterior vertabral bodies of thoracic spine with maintained disc space. Mild right sided pleural effusion.) Lumbar Spine CT Interpretation: Tele-radiologist Report (No acute fracture/traumatic subluxation. Degenerative changes.) Ordered Tests: Active Orders 24 hr Category Date Time Status Bedrest ROUTINE Activity 06/02/23 02:08 Active Call Admit Doctor for Orders ON ADMISSION Care 06/02/23 02:04 Active Machine Stonecutter ROUTINE Care 06/02/23 02:07 Active Code Status Order ROUTINE Care 06/02/23 02:04 Active EKG-ER Only STAT Care 06/01/23 20:43 Active EKG-ER Only STAT Care 06/02/23 00:41 Active IV Insertion STAT Care 06/01/23 20:43 Active Neuro Checks Q4H Care 06/02/23 02:[address] in Observation ROUTINE Care 06/02/23 02:05 Active Telemetry q6h Care 06/02/23 02:01 Active NPO Diet 06/02/23 02:07 Active ABDOMEN AND PELVIS W/0 CONTRAS [CT] Stat Exams 06/01/23 20:43 Completed CHEST WITHOUT CONTRAST [CT] Stat Exams 06/01/23 20:46 Completed HEAD WITHOUT CONTRAST [CT] Stat Exams 06/01/23 20:45 Completed MRI L-SPINE WITHOUT CONTRAST [MRI] Routine Exams 06/02/23 02:01 Ordered MRI T-SPINE WITHOUT CONTRAST [MRI] Routine Exams 06/02/23 02:01 Ordered RECONSTRUCTION [CT] Stat Exams 06/01/23 21:20 Completed RECONSTRUCTION [CT] Stat Exams 06/01/23 21:23 Completed AMYLASE Stat Lab 06/01/23 21:17 Completed CBC W DIFF AM.LAB Lab 06/02/23 04:00 Ordered CBC W DIFF Stat Lab 06/01/23 21:17 Completed CMP AM.LAB Lab 06/02/23 04:00 Ordered CMP Stat Lab 06/01/23 21:17 Completed LIPASE Stat Lab 06/01/23 21:17 Completed MONO SCREEN Stat Lab 06/01/23 21:17 Completed TROPONIN AM.LAB Lab 06/02/23 04:00 Ordered TROPONIN Q4H Lab 06/01/23 21:17 Completed TROPONIN Q4H Lab 06/02/23 00:55 Completed TROPONIN Q4H Lab 06/02/23 04:45 Ordered TROPONIN Q4H Lab 06/02/23 08:45 Ordered UA W/RFX UR CULTURE Stat Lab 06/01/23 21:17 Completed EKG REPEAT IN AM RT 06/02/23 02:01 Active Oxygen Nasal Cannula 2 lpm RT 06/02/23 02:01 Active Medication Summary Generic Name Dose Route Start Last Admin Trade Name Chip PRN Reason Stop Dose Admin Sodium Chloride 1,000 mls @ 100 mls/hr 06/01/23 20:45 06/01/23 23:53 Sodium Chloride 0.9% 1000 Ml IV 07/01/23 20:44 Infused .Q10H JORGE Infusion Piperacillin Sod/Tazobactam 100 mls @ 200 mls/hr 06/02/23 01:57 06/02/23 02:02 Sod 3.375 gm/ Sodium Chloride IV 06/02/23 02:26 200 mls/hr STAT ONE Administration Piperacillin Sod/Tazobactam 100 mls @ 200 mls/hr 06/02/23 06:00 Sod 3.375 gm/ Sodium Chloride IV 06/05/23 05:59 Q6HT JORGE Morphine Sulfate 2 mg 06/02/23 02:01 Morphine Sulfate 2 Mg/Ml Inj IV 06/07/23 02:00 Q2H PRN PRN PAIN Ondansetron HCl 4 mg 06/02/23 02:01 Ondansetron Hcl 4 Mg/2 Ml Vial IV 07/02/23 02:00 Q6H PRN PRN NAUSEA/VOMITING Discontinued Medications Generic Name Dose Route Start Last Admin Trade Name Chip PRN Reason Stop Dose Admin Sodium Chloride 1,000 mls @ 999 mls/hr 06/01/23 22:13 06/02/23 01:04 Sodium Chloride 0.9% 1000 Ml IV 06/01/23 23:13 Infused .Q1H1M STA Infusion Sodium Chloride 1,000 mls @ 999 mls/hr 06/01/23 23:23 06/02/23 01:04 Sodium Chloride 0.9% 1000 Ml IV 06/02/23 00:23 999 mls/hr .Q1H1M STA Administration Sodium Chloride Confirm 06/02/23 02:01 Sodium Chloride 100ml Mini-Bag Plus Administered 06/02/23 02:02 Dose 100 mls @ ud IV .STK-MED ONE Morphine Sulfate 2 mg 06/01/23 20:43 06/01/23 21:08 Morphine Sulfate 2 Mg/Ml Inj IV 06/01/23 20:44 2 mg STAT ONE Administration Morphine Sulfate Confirm 06/01/23 20:56 Morphine Sulfate 2 Mg/Ml Inj Administered 06/01/23 20:57 Dose 2 mg .ROUTE .STK-MED ONE Ondansetron HCl 4 mg 06/01/23 20:43 06/01/23 21:08 Ondansetron Hcl 4 Mg/2 Ml Vial IV 06/01/23 20:44 4 mg STAT ONE Administration Ondansetron HCl Confirm 06/01/23 20:56 Ondansetron Hcl 4 Mg/2 Ml Vial Administered 06/01/23 20:57 Dose 4 mg .ROUTE .STK-MED ONE Piperacillin Sod/Tazobactam Sod Confirm 06/02/23 02:00 Piperacillin/Tazobactam Sodium 3.375 Gm Vial Administered 06/02/23 02:01 Dose 3.375 gm IV .STK-MED ONE Lab/Rad Data: Laboratory Result Diagrams 06/01/23 21:17 06/01/23 21:17 Laboratory Results 06/02/23 06/01/23 06/01/23 Range/Units 00:55 21:17 21:17 WBC (4.0-10.5) x10^3/uL RBC (4.1-5.4) x10^6/uL Hgb (12.0-16.0) g/dL Hct (35-47) % MCV (78-100) fL MCH (26-32) pg MCHC (32-36) g/dL RDW (11.5-14.0) % Plt Count (150-450) x10^3/uL MPV (7.5-11.0) fL Gran % (36.0-66.0) % Immature Gran % (Auto) (0.00-0.4) % Nucleat RBC Rel Count (0.00-0.1) % Eos # (Auto) (0-0.5) x10^3/uL Immature Gran # (Auto) (0.00-0.03) x10^3u/L Absolute Lymphs (auto) (1.0-4.6) x10^3/uL Absolute Monos (auto) (0.0-1.3) x10^3/uL Absolute Nucleated RBC (0.00-0.01) x10^3u/L Lymphocytes % (24.0-44.0) % Monocytes % (0.0-12.0) % Eosinophils % (0.00-5.0) % Basophils % (0.0-0.4) % Absolute Granulocytes (1.4-6.9) x10^3/uL Basophils # (0-0.4) x10^3/uL Sodium (137-145) mmol/L Potassium (3.5-5.1) mmol/L Chloride (98-107) mmol/L Carbon Dioxide (22-30) mmol/L Anion Gap (5-15) MEQ/L BUN (7-17) mg/dL Creatinine (0.52-1.04) mg/dL Estimated GFR ML/MIN Glucose (74-106) mg/dL Calcium (8.4-10.2) mg/dL Total Bilirubin (0.2-1.3) mg/dL AST (14-36) U/L ALT (0-35) U/L Alkaline Phosphatase (38-126) U/L Troponin I 0.023 (0.000-0.034) ng/mL Serum Total Protein (6.3-8.2) g/dL Albumin (3.5-5.0) g/dL Amylase (30-110) U/L Lipase (23-300) U/L Urine Color (Yellow) Urine Appearance (Clear) Urine pH (4.6-8.0) Ur Specific [place] (1.005-1.030) Urine Protein (Negative) Urine Glucose (UA) (Negative) mg/dL Urine Ketones (Negative) Urine Blood (Negative) Urine Nitrite (Negative) Urine Bilirubin (Negative) Urine Urobilinogen (0.2) mg/dL Ur Leukocyte Esterase (Negative) U Hyaline Cast (Auto) (0-2) /LPF Urine Microscopic RBC (0-5) /HPF Urine Microscopic WBC (0-5) /HPF Ur Epithelial Cells (None Seen) /HPF Urine Bacteria (None Seen) /HPF Urine Culture Reflexed (NO) Monoscreen NEGATIVE (NEGATIVE) Influenza Type A Ag NEGATIVE (NEGATIVE) Influenza Type B Ag NEGATIVE (NEGATIVE) RSV (PCR) NEGATIVE (NEGATIVE) SARS-CoV-2 (PCR) NEGATIVE (NEGATIVE) Slides for Path Review 06/01/23 06/01/23 06/01/23 Range/Units 21:17 21:17 21:17 WBC 8.7 (4.0-10.5) x10^3/uL RBC 3.98 L (4.1-5.4) x10^6/uL Hgb 10.5 L (12.0-16.0) g/dL Hct 33.4 L (35-47) % MCV 83.9 (78-100) fL MCH 26.4 (26-32) pg MCHC 31.4 L (32-36) g/dL RDW 17.2 H (11.5-14.0) % Plt Count 195 (150-450) x10^3/uL MPV 10.5 (7.5-11.0) fL Gran % 80.5 H (36.0-66.0) % Immature Gran % (Auto) 0.6 H (0.00-0.4) % Nucleat RBC Rel Count 0.0 (0.00-0.1) % Eos # (Auto) 0.39 (0-0.5) x10^3/uL Immature Gran # (Auto) 0.05 H (0.00-0.03) x10^3u/L Absolute Lymphs (auto) 0.59 L (1.0-4.6) x10^3/uL Absolute Monos (auto) 0.59 (0.0-1.3) x10^3/uL Absolute Nucleated RBC 0.00 (0.00-0.01) x10^3u/L Lymphocytes % 6.8 L (24.0-44.0) % Monocytes % 6.8 (0.0-12.0) % Eosinophils % 4.5 (0.00-5.0) % Basophils % 0.8 (0.0-0.4) % Absolute Granulocytes 7.00 H (1.4-6.9) x10^3/uL Basophils # 0.07 (0-0.4) x10^3/uL Sodium 132 L (137-145) mmol/L Potassium 4.9 (3.5-5.1) mmol/L Chloride 104 (98-107) mmol/L Carbon Dioxide 17 L (22-30) mmol/L Anion Gap 16.0 H (5-15) MEQ/L BUN 74 H (7-17) mg/dL Creatinine 3.57 H (0.52-1.04) mg/dL Estimated GFR 12.5 ML/MIN Glucose 110 H (74-106) mg/dL Calcium 9.3 (8.4-10.2) mg/dL Total Bilirubin 1.30 (0.2-1.3) mg/dL AST 33 (14-36) U/L ALT 18 (0-35) U/L Alkaline Phosphatase 169 H (38-126) U/L Troponin I 0.030 (0.000-0.034) ng/mL Serum Total Protein 7.3 (6.3-8.2) g/dL Albumin 4.1 (3.5-5.0) g/dL Amylase 90 (30-110) U/L Lipase 200 (23-300) U/L Urine Color (Yellow) Urine Appearance (Clear) Urine pH (4.6-8.0) Ur Specific [place] (1.005-1.030) Urine Protein (Negative) Urine Glucose (UA) (Negative) mg/dL Urine Ketones (Negative) Urine Blood (Negative) Urine Nitrite (Negative) Urine Bilirubin (Negative) Urine Urobilinogen (0.2) mg/dL Ur Leukocyte Esterase (Negative) U Hyaline Cast (Auto) (0-2) /LPF Urine Microscopic RBC (0-5) /HPF Urine Microscopic WBC (0-5) /HPF Ur Epithelial Cells (None Seen) /HPF Urine Bacteria (None Seen) /HPF Urine Culture Reflexed (NO) Monoscreen (NEGATIVE) Influenza Type A Ag (NEGATIVE) Influenza Type B Ag (NEGATIVE) RSV (PCR) (NEGATIVE) SARS-CoV-2 (PCR) (NEGATIVE) Slides for Path Review YES 06/01/23 Range/Units 21:17 WBC (4.0-10.5) x10^3/uL RBC (4.1-5.4) x10^6/uL Hgb (12.0-16.0) g/dL Hct (35-47) % MCV (78-100) fL MCH (26-32) pg MCHC (32-36) g/dL RDW (11.5-14.0) % Plt Count (150-450) x10^3/uL MPV (7.5-11.0) fL Gran % (36.0-66.0) % Immature Gran % (Auto) (0.00-0.4) % Nucleat RBC Rel Count (0.00-0.1) % Eos # (Auto) (0-0.5) x10^3/uL Immature Gran # (Auto) (0.00-0.03) x10^3u/L Absolute Lymphs (auto) (1.0-4.6) x10^3/uL Absolute Monos (auto) (0.0-1.3) x10^3/uL Absolute Nucleated RBC (0.00-0.01) x10^3u/L Lymphocytes % (24.0-44.0) % Monocytes % (0.0-12.0) % Eosinophils % (0.00-5.0) % Basophils % (0.0-0.4) % Absolute Granulocytes (1.4-6.9) x10^3/uL Basophils # (0-0.4) x10^3/uL Sodium (137-145) mmol/L Potassium (3.5-5.1) mmol/L Chloride (98-107) mmol/L Carbon Dioxide (22-30) mmol/L Anion Gap (5-15) MEQ/L BUN (7-17) mg/dL Creatinine (0.52-1.04) mg/dL Estimated GFR ML/MIN Glucose (74-106) mg/dL Calcium (8.4-10.2) mg/dL Total Bilirubin (0.2-1.3) mg/dL AST (14-36) U/L ALT (0-35) U/L Alkaline Phosphatase (38-126) U/L Troponin I (0.000-0.034) ng/mL Serum Total Protein (6.3-8.2) g/dL Albumin (3.5-5.0) g/dL Amylase (30-110) U/L Lipase (23-300) U/L Urine Color Yellow (Yellow) Urine Appearance Clear (Clear) Urine pH 6.0 (4.6-8.0) Ur Specific [place] 1.010 (1.005-1.030) Urine Protein Negative (Negative) Urine Glucose (UA) Negative (Negative) mg/dL Urine Ketones Negative (Negative) Urine Blood Negative (Negative) Urine Nitrite Negative (Negative) Urine Bilirubin Negative (Negative) Urine Urobilinogen 1.0 A (0.2) mg/dL Ur Leukocyte Esterase Small A (Negative) U Hyaline Cast (Auto) 6-10 A (0-2) /LPF Urine Microscopic RBC 0-2 (0-5) /HPF Urine Microscopic WBC 6-10 A (0-5) /HPF Ur Epithelial Cells Rare (None Seen) /HPF Urine Bacteria None Seen (None Seen) /HPF Urine Culture Reflexed NO (NO) Monoscreen (NEGATIVE) Influenza Type A Ag (NEGATIVE) Influenza Type B Ag (NEGATIVE) RSV (PCR) (NEGATIVE) SARS-CoV-2 (PCR) (NEGATIVE) Slides for Path Review - Progress Progress: improved Discussed with : Other (Spoke with Dr. Barbosa([id number]) who accepted pt for placement in observation.) Will see patient in: hospital (observation) Counseled pt/family regarding: diagnosis, need for follow-up, rad results Medical Desision Making - Diagnostic Testing Diagnostic test were ordered, analyzed, and reviewed by me: Yes Radiological Interpretation: Teleradiologist Report - Departure Departure Disposition: Observation Clinical Impression: Acute diverticulitis, Lightheadedness, Dyspnea, Back pain, Dehydration, Renal failure Condition: Stable Critical Care Time: No Referrals: ERNESTINE RIOS MD [Primary Care Provider] - Follow up/PCP as directed
[2023-06-01] MEDS ORDERED: Zofran 4 MG/2 ML VIAL ONE (20:56)
[2023-06-01] MEDS ORDERED: MORPHINE SULFATE 2 MG INJ ONE (20:56)
[2023-06-01] MEDS: Sodium Chloride 0.9% 1000 ML 1,000 ML IV SCH (21:07)
[2023-06-01] MEDS: MORPHINE SULFATE 2 MG INJ IV ONE (21:08)
[2023-06-01] MEDS: Zofran 4 MG/2 ML VIAL IV ONE (21:08)
[2023-06-01 21:25] LABS: BASOPHIL % 0.8 % (0.0-0.4); Basophil (Absolute #) 0.07 x10^3/uL (0-0.4); Eosinophil % 4.5 % (0.00-5.0); Eosinophil (Absolute #) 0.39 x10^3/uL (0-0.5); Hematocrit 33.4 % (35-47); Hemoglobin 10.5 g/dL (12.0-16.0); IMMATURE GRAN # 0.05 x10^3u/L (0.00-0.03); IMMATURE GRAN % 0.6 % (0.00-0.4); Lymphocyte (Absolute #) 0.59 x10^3/uL (1.0-4.6); Lymphocytes % 6.8 % (24.0-44.0); Mean Cell Volume 83.9 fL (78-100); Mean Corpuscular Hemoglobin 26.4 pg (26-32); Mean Corpuscular Hgb Concent. 31.4 g/dL (32-36); Mean Platelet Volume 10.5 fL (7.5-11.0); Monocyte (Absolute #) 0.59 x10^3/uL (0.0-1.3); Monocytes % 6.8 % (0.0-12.0); Neutrophil % 80.5 % (36.0-66.0); Platelet Count 195 x10^3/uL (150-450); Red Blood Count 3.98 x10^6/uL (4.1-5.4); Red Cell Distribution Width 17.2 % (11.5-14.0); White Blood Count 8.7 x10^3/uL (4.0-10.5)
[2023-06-01 21:35] LABS: ADD URINE CULTURE? NO (NO); Appearance Clear (Clear); Bacteria None Seen /HPF (None Seen); Bilirubin Negative (Negative); Blood Negative (Negative); Epithelial Cells Rare /HPF (None Seen); Glucose, Urine Negative (Negative); Ketones Negative (Negative); Leukocyte Esterase Small (Negative); Nitrite Negative (Negative); Protein,Urine Dip Negative (Negative); RBC 0-2 /HPF (0-5)
[2023-06-01 21:57] LABS: ALBUMIN 4.1 g/dL (3.5-5.0); BILIRUBIN,TOTAL 1.3 mg/dL (0.2-1.3); Calcium 9.3 mg/dL (8.4-10.2); Creatinine 1 3.57 mg/dL (0.52-1.04); EST GLOMERULAR FILTRATION RATE 12.5 ML/MIN; Potassium 4.9 mmol/L (3.5-5.1); Total Protein 7.3 g/dL (6.3-8.2)
[2023-06-01 22:01] LABS: INFLUENZA A NEGATIVE (NEGATIVE); INFLUENZA B NEGATIVE (NEGATIVE); RESPIRATORY SYNCTIAL VIRUS NEGATIVE (NEGATIVE); SARS-CoV-2 Xpert Express NEGATIVE (NEGATIVE)
[2023-06-01 22:40] LABS: Slide Review 1 YES
[2023-06-01] MEDS: Sodium Chloride 0.9% 1000 ML 1,000 ML IV STA (23:55)
--- NOTE | 2023-06-02 00:13 | XRAY ---
CLINICAL HISTORY: pain TECHNIQUE: Contiguous axial images were obtained from the level of the diaphragm to the pubic symphysis without intravenous or oral contrast. Coronal and sagittal reconstructions were likewise performed and indicated to increase the sensitivity for detecting clinically relevant pathology. CT scan was performed according to ALARA (as low as reasonable achievable). COMPARISON: None FINDINGS: There is a small right pelural effusion. Evaluation of the abdominal and pelvic visceral organs is limited without intravenous contrast. The unenhanced liver, spleen, pancreas, and adrenal glands are grossly unremarkable. The gallbladder is surgically absent. The kidneys are normal in size and attenuation without obvious calcification. There is no hydronephrosis or perinephric stranding. The ureters are normal in caliber. No adenopathy or fluid collections are seen. Contrast is seen within the rectum and large bowel loops. There are multiple colonic diverticula with asymmetric wall thickening involving the descending colon for a maximum length of 3.5cm (coronal images: 84/167). There is mildpericolonic fat stranding. The aorta is normal in caliber. The urinary bladder is normal in contour. There is mild free fluid in the abdomen and pelvis. Degenerative changes are identified in the spine. The aorta and its branches demonstrate atheromatous calcoification, without evidnece of aneurysm. IMPRESSION: 1. Multiple colonic diverticula with asymmetric wall thickening involving the descending colon for a maximum length of 3.5cm (coronal images: 84/167). There is mildpericolonic fat stranding. This may suggest acute uncomplicated diverticulitis and follow up is recommended. 2. Mild right pleural effusion and ascites. Electronically Signed by: Dr. Richard Powell MD. (06/02/2023 00:10:08 EST)
--- NOTE | 2023-06-02 00:15 | XRAY ---
CLINICAL HISTORY: lightheadedness TECHNIQUE: Axial non-contrast CT scan of the brain was performed from the skull base to the high parietal region. Dose: CTDI 53.92 mGy DLP 1016.2 mGy*cm. COMPARISON: None. FINDINGS: The visualized brain parenchyma shows proctor-white matter differentiation. Age-related mild cortical atrophic changes with deepening of sulci. Mild bilateral periventricular hypodensity is suggestive of microvascular ischemic changes. No midline shift. No intracerebral or extra axial hematoma. Normal size and configuration of the cerebral ventricles. Normal CT appearance of the posterior fossa structures. The osseous structures in the skull base are unremarkable. No definite calvarium fractures. Lobulated mucosal thickening is seen in bilateral maxillary sinuses. Focal mucosal opacification of left anterior ethmoid cell. Mildly rightward deviated median nasal septum. IMPRESSION: 1. No acute intracranial hemorrhage or acute territorial infarction. Early changes of stroke may not be detected on a CT scan. If strong clinical suspicion of stroke then suggest MRI with diffusion-weighted imaging. 2. Age-related significant involutional and microvascular ischemic changes. 3. Lobulated mucosal thickening in both maxillary sinuses. Electronically Signed by: Maria Luz Thakkar MD. (06/02/2023 00:11:35 EST)
--- NOTE | 2023-06-02 00:23 | XRAY ---
CLINICAL HISTORY: shortness of air TECHNIQUE: Contiguous axial images were obtained from the neck base through the upper abdomen without contrast. In addition, sagittal and coronal reconstructions were performed to potentially increase the sensitivity for the detection of disease. CT scan was performed according to ALARA (as low as reasonable achievable). COMPARISON: None FINDINGS: Subsegmental atelectasis is noted in the bilateral lower lobes. There is a moderate sized hiatal hernia noted. The lungs are otherwise clear, with no focal areas of consolidation. No pulmonary nodules are seen. The central airways are patent. There is a small right pleural effusion noted. No pneumothorax is seen. Evaluation of the mediastinum and mercedes is limited due to the lack of intravenous contrast. No axillary or mediastinal adenopathy is identified. The thyroid is unremarkable. There is moderate cardiomegaly present, with coronary calcifications within. Cardiac pacemaker seen appropriately positioned. The aorta, and pulmonary arteries are of normal size and configuration. There are aortic atherosclerotic calcifications. No pericardial effusion is identified. Imaged portions of the upper abdomen show mild ascites. No aggressive appearing osseous lesions are identified. IMPRESSION: 1. No acute intrathoracic pathology identified. 2. Small right pleural effusion, mild asictes and cardiomegaly may point towards cardiogenic etiology- clinical correlation is recommended. 3. Moderate sized hiatal hernia. Electronically Signed by: Dr. Richard Powell MD. (06/02/2023 00:20:13 EST)
--- NOTE | 2023-06-02 00:59 | XRAY ---
CLINICAL HISTORY: DIZZY,PAIN, RECONS TSPINE TECHNIQUE: Multiple contiguous axial images were obtained through the thoracic spine without IV contrast. Sagittal and coronal reformatted images were obtained from the axial data. CT scan was performed according to ALARA (as low as reasonable achievable). COMPARISON: None FINDINGS: Note is made of mildly exaggerated kyphosis of thoracic spine. Bone window reveals bridging osteophytes involving anterior vertebral bodies of thoracic spine with maintained disc space. Incidental note is made of mild right sided pleural effusion. Thoracic vertebral bodies are maintained in height and alignment. No vertebral destructive changes are seen. C7-T1: No disc bulge. No canal stenosis. No neuroforaminal narrowing. T1-T2: No disc bulge. No canal stenosis. No neuroforaminal narrowing. T2-T3: No disc bulge. No canal stenosis. No neuroforaminal narrowing. T3-T4: No disc bulge. No canal stenosis. No neuroforaminal narrowing. T4-T5: No disc bulge. No canal stenosis. No neuroforaminal narrowing. T5-T6: No disc bulge. No canal stenosis. No neuroforaminal narrowing. T6-T7: No disc bulge. No canal stenosis. No neuroforaminal narrowing. T7-T8: No disc bulge. No canal stenosis. No neuroforaminal narrowing. T8-T9: No disc bulge. No canal stenosis. No neuroforaminal narrowing. T9-T10: No disc bulge. No canal stenosis. No neuroforaminal narrowing. T10-T11: No disc bulge. No canal stenosis. No neuroforaminal narrowing. T11-T12: No disc bulge. No canal stenosis. No neuroforaminal narrowing. Paravertebral soft tissues are unremarkable. Visualized lung parenchyma appears unremarkable. IMPRESSION: 1. Note is made of mildly exaggerated kyphosis of thoracic spine. 2. Bone window reveals bridging osteophytes involving anterior vertebral bodies of thoracic spine with maintained disc space. This may represent diffuse idiopathic skeletal hyperostosis. 3. Incidental note is made of mild right sided pleural effusion. Electronically Signed by: Dr. Richard Powell MD. (06/02/2023 00:56:28 EST)
--- NOTE | 2023-06-02 01:03 | XRAY ---
CLINICAL HISTORY: PAIN,DIZZYNESS, RECONSTRUCTION LSPI TECHNIQUE: Multiple contiguous axial images were obtained through the lumbar spine without IV contrast. Sagittal and coronal reformatted images were obtained from the axial data. CT scan was performed according to ALARA (as low as reasonable achievable). COMPARISON: None FINDINGS: The normal lordotic curvature of the lumbar spine is maintained. Multilevel degenerative endplate osteophytes, disc space narrowing and schmorl's nodes and facetal arthropathy noted at lower lumbar levels. L1-L2: Mild diffuse disc bulge is noted. L2-L3: Mild diffuse disc bulge is noted. L3-L4: Mild diffuse disc bulge is noted causing mild spinal canal narrowing and bilateral neural foraminal narrowing. L4-L5: Mild diffuse disc bulge is noted causing mild spinal canal narrowing and bilateral neural foraminal narrowing. L5-S1: Mild diffuse disc bulge is noted. The aorta and its branches demonstrte atheromatous calcification, without evidence of aneurysm. There are multiple colonic diverticula, without evidnece of diverticulitis. Paravertebral soft tissues are unremarkable. There is mild amount of right pleural effusion and moderate sized sliding hiatus hernia. IMPRESSION: 1. No acute fracture / traumatic subluxation. 2. Degenerative changes as described above. 3. Mild right pleural effusion and moderate sized sliding hiatus hernia. Electronically Signed by: Dr. Richard Powell MD. (06/02/2023 00:58:49 EST)
[2023-06-02] MEDS: Sodium Chloride 0.9% 1000 ML 1,000 ML IV STA (01:04)
[2023-06-02] MEDS ORDERED: PIPERACILLIN/TAZOBACTAM IV ONE ×2 (02:00→06:35)
[2023-06-02] MEDS ORDERED: Sodium Chloride 100ML MINI-BAG PLUS 100 ML IV ONE ×2 (02:01→06:36)
[2023-06-02] MEDS ORDERED: Zofran 4 MG/2 ML VIAL IV PRN (02:01)
[2023-06-02] MEDS: PIPERACILLIN/TAZOBACTAM 3.375 GM in Sodium Chloride 100ML MINI-BAG PLUS 100 ML IV ONE (02:02)
[2023-06-02] MEDS ORDERED: Sodium Chloride 0.9% 1000 ML 1,000 ML IV SCH (02:30)
--- NOTE | 2023-06-02 02:33 | PCM.HP ---
History of Present Illness - Chief Complaint Chief Complaint: Acute diverticulitis; Dyspnea; Back pain; Lightheadedness Date: 06/02/23 History of Present Illness: Ms. Yu is a 77 year old female with a past medical history significant for hypertension, hypothyroidism, gout, COPD and chronic kidney disease stage IV with a baseline creatinine ~ 2.4 who presented to the hospital two weeks ago with abdominal pain and was felt to have diverticulitis. She was given Flagyl and Indomethacin and discharged but returns with complaints of weakness, dizziness and continued abdominal/back pain. She underwent CT back/abd/pelvis which demonstrated some kyphosis and diverticular disease with R pleural effusion. Her initial labs were notable for a marked worsening of her kidney function with a creatinine up to 3.7. She is resting in bed in the ER, lethargic but arousable. She is hemodynamically stable and appears to be in no acute distress. No IV contrast exposure but she has been taking NSAIDs. - Review of Systems Constitutional: Fatigue, No Fever, No Chills Eyes: No Vision Changes Ears, Nose, & Throat: No Nose Discharge, No Sinus Drainage Respiratory: No Orthopnea, No Short Of Breath Cardiac: No Chest Pain, No Edema, No Palpitations Abdominal/Gastrointestinal: Abdominal Pain, Nausea, No Vomiting, No Diarrhea, No Constipation Genitourinary Symptoms: No Dysuria, No Frequency, No Hematuria Musculoskeletal: No Back Pain, No Neck Pain Skin: No Cellulitis Neurological: Dizziness, Focal Weakness Psychological: No Alcohol Abuse, No Suicidal Ideations Endocrine: No Polyuria, No Polydipsia Hematologic/Lymphatic: No Anemia Medications & Allergies Home Medications: Home Medication List Levothyroxine Sodium 88 Mcg [Synthroid 88 Mcg] 88 mcg PO DAILY 03/18/12 [History Confirmed 06/01/23] Aspirin EC 81 mg [Ecotrin 81 mg] 81 mg PO DAILY 07/11/21 [History Confirmed 06/01/23] Montelukast Sodium 10 mg [Singulair 10 MG] 10 mg PO DAILY 07/11/21 [History Confirmed 06/01/23] Allopurinol 300 mg [Zyloprim 300 mg] 300 mg PO DAILY 01/08/22 [History Confirmed 06/01/23] Atorvastatin Calcium [Lipitor 40Mg] 20 mg PO QHS 01/08/22 [History Confirmed 06/01/23] Ipratropium/Albuterol Sulfate [Iprat-Albut 0.5-3(2.5) mg/3 ml] 3 ml NEB QID PRN PRN 01/08/22 [History Confirmed 06/01/23] PANTOPRAZOLE 40 mg Tablet [Protonix 40MG Tablet] 40 mg PO BID 01/08/22 [History Confirmed 06/01/23] Carvedilol 3.125 mg [Coreg 3.125 MG] 3.125 mg PO BID 01/09/22 [History Confirmed 06/01/23] Isosorbide Mononitrate [Isosorbide Mononitrate ER] 120 mg PO DAILY 01/09/22 [History Confirmed 06/01/23] Potassium Chloride Tab* [Klor Con] 20 meq PO DAILY 01/09/22 [History Confirmed 06/01/23] Bumetanide 2 mg PO DAILY 06/01/23 [History Confirmed 06/01/23] Fluticasone/Umeclidin/Vilanter [Trelegy Ellipta 100-62.5-25] 1 puff IH DAILY 06/01/23 [History Confirmed 06/01/23] Indomethacin 25 mg [Indocin 25 MG] 1 tab PO BID 06/01/23 [History Confirmed 06/01/23] Metronidazole 500 mg [Flagyl 500 MG] 1 tab PO TID 06/01/23 [History Confirmed 06/01/23] Allergies/Adverse Reactions: Allergies Allergy/AdvReac Type Severity Reaction Status Date / Time codeine [Codeine] Allergy Mild Rash Verified 06/01/23 20:16 azithromycin [From Zithromax] AdvReac Verified 06/01/23 20:16 erythromycin base AdvReac Verified 06/01/23 20:17 - Past Medical History Past Medical History: Yes Neurological History: No Pertinent History ENT History: Cataracts Cardiac History: Congestive Heart Failure, Coronary Artery Disease, High Cholesterol, Hypertension, Other Respiratory History: Asthma, Bronchitis, COPD Endocrine Medical History: Hypothyroidism Musculoskelatal History: No Pertinent History GI Medical History: GERD, GI Bleed, Hernia History: Renal Disease Pyscho-Social History: No Pertinent History Reproductive Disorders: Abnormal Uterine Bleeding Comment: anemia, pacemaker, watchman device - Female History Are you now?: No - Past Surgical History Past Surgical History: Yes Neuro Surgical History: No Pertinent History Cardiac History: Cardiac Catheterization, Cardiac Stent, Pacemaker Respiratory Surgery: No Pertinent History GI Surgical History: Cholecystectomy Genitourinary Surgical Hx: No Pertinent History Musculskeletal Surgical Hx: No Pertinent History Female Surgical History: Hysterectomy Other Surgical History: 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, pacemaker, watchman device - Social History Smoking Status: Current every day smoker Exposure to second hand smoke: Yes Alcohol: None Drug Use: none Significant Family History: no pertinent family hx - Physical Exam Vital Signs: Vital Signs - 24 hr Temp Pulse Resp BP BP Pulse Ox 06/02/23 02:16 96 06/02/23 02:00 70 18 149/73 97 06/02/23 01:30 151/76 96 06/02/23 01:00 68 16 149/64 95 06/02/23 00:31 70 20 142/85 95 06/02/23 00:00 70 18 170/90 94 L 06/01/23 23:30 168/86 06/01/23 23:09 70 18 168/76 92 L 06/01/23 22:00 70 18 161/82 93 L 06/01/23 21:31 149/78 92 L 06/01/23 21:07 71 18 155/66 94 L 06/01/23 21:06 93 L 06/01/23 20:30 158/77 06/01/23 20:05 144/80 94 L 06/01/23 20:04 100.4 F 70 18 144/80 96 General Appearance: no apparent distress Neurologic Exam: No confusion, No slurred speech Ears, Nose, Throat Exam: dry mucous membranes Neck Exam: supple Respiratory Exam: No rhonchi, No wheezing Cardiovascular Exam: regular rate/rhythm Gastrointestinal/Abdomen Exam: soft, tenderness Extremity Exam: No pedal edema, No swelling Skin Exam: normal color, warm, dry Results - Labs Lab/Micro Results: Lab Results-Last 24 Hours 06/01/23 06/01/23 06/01/23 Range/Units 21:17 21:17 21:17 WBC 8.7 (4.0-10.5) x10^3/uL RBC 3.98 L (4.1-5.4) x10^6/uL Hgb 10.5 L (12.0-16.0) g/dL Hct 33.4 L (35-47) % MCV 83.9 (78-100) fL MCH 26.4 (26-32) pg MCHC 31.4 L (32-36) g/dL RDW 17.2 H (11.5-14.0) % Plt Count 195 (150-450) x10^3/uL MPV 10.5 (7.5-11.0) fL Gran % 80.5 H (36.0-66.0) % Immature Gran % (Auto) 0.6 H (0.00-0.4) % Nucleat RBC Rel Count 0.0 (0.00-0.1) % Eos # (Auto) 0.39 (0-0.5) x10^3/uL Immature Gran # (Auto) 0.05 H (0.00-0.03) x10^3u/L Absolute Lymphs (auto) 0.59 L (1.0-4.6) x10^3/uL Absolute Monos (auto) 0.59 (0.0-1.3) x10^3/uL Absolute Nucleated RBC 0.00 (0.00-0.01) x10^3u/L Lymphocytes % 6.8 L (24.0-44.0) % Monocytes % 6.8 (0.0-12.0) % Eosinophils % 4.5 (0.00-5.0) % Basophils % 0.8 (0.0-0.4) % Absolute Granulocytes 7.00 H (1.4-6.9) x10^3/uL Basophils # 0.07 (0-0.4) x10^3/uL Sodium 132 L (137-145) mmol/L Potassium 4.9 (3.5-5.1) mmol/L Chloride 104 (98-107) mmol/L Carbon Dioxide 17 L (22-30) mmol/L Anion Gap 16.0 H (5-15) MEQ/L BUN 74 H (7-17) mg/dL Creatinine 3.57 H (0.52-1.04) mg/dL Estimated GFR 12.5 ML/MIN Glucose 110 H (74-106) mg/dL Calcium 9.3 (8.4-10.2) mg/dL Total Bilirubin 1.30 (0.2-1.3) mg/dL AST 33 (14-36) U/L ALT 18 (0-35) U/L Alkaline Phosphatase 169 H (38-126) U/L Troponin I (0.000-0.034) ng/mL Serum Total Protein 7.3 (6.3-8.2) g/dL Albumin 4.1 (3.5-5.0) g/dL Amylase 90 (30-110) U/L Lipase 200 (23-300) U/L Urine Color Yellow (Yellow) Urine Appearance Clear (Clear) Urine pH 6.0 (4.6-8.0) Ur Specific [place] 1.010 (1.005-1.030) Urine Protein Negative (Negative) Urine Glucose (UA) Negative (Negative) mg/dL Urine Ketones Negative (Negative) Urine Blood Negative (Negative) Urine Nitrite Negative (Negative) Urine Bilirubin Negative (Negative) Urine Urobilinogen 1.0 A (0.2) mg/dL Ur Leukocyte Esterase Small A (Negative) U Hyaline Cast (Auto) 6-10 A (0-2) /LPF Urine Microscopic RBC 0-2 (0-5) /HPF Urine Microscopic WBC 6-10 A (0-5) /HPF Ur Epithelial Cells Rare (None Seen) /HPF Urine Bacteria None Seen (None Seen) /HPF Urine Culture Reflexed NO (NO) Monoscreen (NEGATIVE) Influenza Type A Ag (NEGATIVE) Influenza Type B Ag (NEGATIVE) RSV (PCR) (NEGATIVE) SARS-CoV-2 (PCR) (NEGATIVE) Slides for Path Review YES 06/01/23 06/01/23 06/01/23 Range/Units 21:17 21:17 21:17 WBC (4.0-10.5) x10^3/uL RBC (4.1-5.4) x10^6/uL Hgb (12.0-16.0) g/dL Hct (35-47) % MCV (78-100) fL MCH (26-32) pg MCHC (32-36) g/dL RDW (11.5-14.0) % Plt Count (150-450) x10^3/uL MPV (7.5-11.0) fL Gran % (36.0-66.0) % Immature Gran % (Auto) (0.00-0.4) % Nucleat RBC Rel Count (0.00-0.1) % Eos # (Auto) (0-0.5) x10^3/uL Immature Gran # (Auto) (0.00-0.03) x10^3u/L Absolute Lymphs (auto) (1.0-4.6) x10^3/uL Absolute Monos (auto) (0.0-1.3) x10^3/uL Absolute Nucleated RBC (0.00-0.01) x10^3u/L Lymphocytes % (24.0-44.0) % Monocytes % (0.0-12.0) % Eosinophils % (0.00-5.0) % Basophils % (0.0-0.4) % Absolute Granulocytes (1.4-6.9) x10^3/uL Basophils # (0-0.4) x10^3/uL Sodium (137-145) mmol/L Potassium (3.5-5.1) mmol/L Chloride (98-107) mmol/L Carbon Dioxide (22-30) mmol/L Anion Gap (5-15) MEQ/L BUN (7-17) mg/dL Creatinine (0.52-1.04) mg/dL Estimated GFR ML/MIN Glucose (74-106) mg/dL Calcium (8.4-10.2) mg/dL Total Bilirubin (0.2-1.3) mg/dL AST (14-36) U/L ALT (0-35) U/L Alkaline Phosphatase (38-126) U/L Troponin I 0.030 (0.000-0.034) ng/mL Serum Total Protein (6.3-8.2) g/dL Albumin (3.5-5.0) g/dL Amylase (30-110) U/L Lipase (23-300) U/L Urine Color (Yellow) Urine Appearance (Clear) Urine pH (4.6-8.0) Ur Specific [place] (1.005-1.030) Urine Protein (Negative) Urine Glucose (UA) (Negative) mg/dL Urine Ketones (Negative) Urine Blood (Negative) Urine Nitrite (Negative) Urine Bilirubin (Negative) Urine Urobilinogen (0.2) mg/dL Ur Leukocyte Esterase (Negative) U Hyaline Cast (Auto) (0-2) /LPF Urine Microscopic RBC (0-5) /HPF Urine Microscopic WBC (0-5) /HPF Ur Epithelial Cells (None Seen) /HPF Urine Bacteria (None Seen) /HPF Urine Culture Reflexed (NO) Monoscreen NEGATIVE (NEGATIVE) Influenza Type A Ag NEGATIVE (NEGATIVE) Influenza Type B Ag NEGATIVE (NEGATIVE) RSV (PCR) NEGATIVE (NEGATIVE) SARS-CoV-2 (PCR) NEGATIVE (NEGATIVE) Slides for Path Review 06/02/23 Range/Units 00:55 WBC (4.0-10.5) x10^3/uL RBC (4.1-5.4) x10^6/uL Hgb (12.0-16.0) g/dL Hct (35-47) % MCV (78-100) fL MCH (26-32) pg MCHC (32-36) g/dL RDW (11.5-14.0) % Plt Count (150-450) x10^3/uL MPV (7.5-11.0) fL Gran % (36.0-66.0) % Immature Gran % (Auto) (0.00-0.4) % Nucleat RBC Rel Count (0.00-0.1) % Eos # (Auto) (0-0.5) x10^3/uL Immature Gran # (Auto) (0.00-0.03) x10^3u/L Absolute Lymphs (auto) (1.0-4.6) x10^3/uL Absolute Monos (auto) (0.0-1.3) x10^3/uL Absolute Nucleated RBC (0.00-0.01) x10^3u/L Lymphocytes % (24.0-44.0) % Monocytes % (0.0-12.0) % Eosinophils % (0.00-5.0) % Basophils % (0.0-0.4) % Absolute Granulocytes (1.4-6.9) x10^3/uL Basophils # (0-0.4) x10^3/uL Sodium (137-145) mmol/L Potassium (3.5-5.1) mmol/L Chloride (98-107) mmol/L Carbon Dioxide (22-30) mmol/L Anion Gap (5-15) MEQ/L BUN (7-17) mg/dL Creatinine (0.52-1.04) mg/dL Estimated GFR ML/MIN Glucose (74-106) mg/dL Calcium (8.4-10.2) mg/dL Total Bilirubin (0.2-1.3) mg/dL AST (14-36) U/L ALT (0-35) U/L Alkaline Phosphatase (38-126) U/L Troponin I 0.023 (0.000-0.034) ng/mL Serum Total Protein (6.3-8.2) g/dL Albumin (3.5-5.0) g/dL Amylase (30-110) U/L Lipase (23-300) U/L Urine Color (Yellow) Urine Appearance (Clear) Urine pH (4.6-8.0) Ur Specific [place] (1.005-1.030) Urine Protein (Negative) Urine Glucose (UA) (Negative) mg/dL Urine Ketones (Negative) Urine Blood (Negative) Urine Nitrite (Negative) Urine Bilirubin (Negative) Urine Urobilinogen (0.2) mg/dL Ur Leukocyte Esterase (Negative) U Hyaline Cast (Auto) (0-2) /LPF Urine Microscopic RBC (0-5) /HPF Urine Microscopic WBC (0-5) /HPF Ur Epithelial Cells (None Seen) /HPF Urine Bacteria (None Seen) /HPF Urine Culture Reflexed (NO) Monoscreen (NEGATIVE) Influenza Type A Ag (NEGATIVE) Influenza Type B Ag (NEGATIVE) RSV (PCR) (NEGATIVE) SARS-CoV-2 (PCR) (NEGATIVE) Slides for Path Review - Radiology Impressions Radiology Exams & Impressions: Radiology Procedures Category Date Time Status ABDOMEN AND PELVIS W/0 CONTRAS [CT] Stat Exams 06/01/23 20:43 Completed CHEST WITHOUT CONTRAST [CT] Stat Exams 06/01/23 20:46 Completed HEAD WITHOUT CONTRAST [CT] Stat Exams 06/01/23 20:45 Completed MRI L-SPINE WITHOUT CONTRAST [MRI] Routine Exams 06/02/23 02:01 Ordered MRI T-SPINE WITHOUT CONTRAST [MRI] Routine Exams 06/02/23 02:01 Ordered RECONSTRUCTION [CT] Stat Exams 06/01/23 21:20 Completed RECONSTRUCTION [CT] Stat Exams 06/01/23 21:23 Completed - Other Procedures and Tests Respiratory Therapy 02/12/24 02:01 EKG REPEAT IN AM Oxygen Nasal Cannula 2 lpm Assessment/Plan (1) Acute diverticulitis Current Visit: Yes Status: Acute Assessment & Plan: Still having abdominal pain likely related to diverticulitis 1. Clear liquid diet 2. IVFs 3. Pain control 4. Empiric antibiotics Code(s): K57.92 - DVTRCLI OF INTEST, PART UNSP, W/O PERF OR ABSCESS W/O BLEED (2) Lightheadedness Current Visit: Yes Status: Acute Assessment & Plan: Likely from hypotension in setting of SAMANTA/CKD 1. IVFs 2. Check orthostatics 3. Monitor blood pressure readings Code(s): R42 - DIZZINESS AND GIDDINESS (3) Acute on chronic renal insufficiency Current Visit: No Status: Acute Assessment & Plan: Likely from NSAID use in setting of diuretics with baseline CKD stage IV (baseilne Cr 2.4) 1. Hold Indomethacin 2. IVFs 3. Defer diuretics 4. Avoid contrast studies 5. Follow I/Os 6. Watch electrolytes, creatinine closely Code(s): N28.9 - DISORDER OF KIDNEY AND URETER, UNSPECIFIED; N18.9 - CHRONIC KIDNEY DISEASE, UNSPECIFIED (4) Hyponatremia Current Visit: Yes Status: Acute Assessment & Plan: Hypovolemic hyponatremia - sodium low at 132 1. Limit free water 2. Gentle isotonic IVFs 3. Hold diuretics 4. Watch electrolytes closely Code(s): E87.1 - HYPO-OSMOLALITY AND HYPONATREMIA (5) Metabolic acidosis Current Visit: Yes Status: Acute Assessment & Plan: Likely from SAMANTA, bicarb 17 1. NS IVFs for now 2. Defer sodium bicarb for now Code(s): E87.20 - ACIDOSIS, UNSPECIFIED Telemedicine Encounter - Telemedicine Encounter Telemedicine Encounter: The entirety of this encounter was performed via Telemedicine"
[2023-06-02] MEDS ORDERED: TYLENOL 325 MG PO PRN (02:47)
[2023-06-02 04:53] LABS: Absolute Neutrophil Ct (ANC) 7.41 x10^3/uL (1.4-6.9); BASOPHIL % 0.7 % (0.0-0.4); Basophil (Absolute #) 0.06 x10^3/uL (0-0.4); Eosinophil % 3.5 % (0.00-5.0); Eosinophil (Absolute #) 0.32 x10^3/uL (0-0.5); Hematocrit 35.4 % (35-47); Hemoglobin 10.5 g/dL (12.0-16.0); IMMATURE GRAN # 0.05 x10^3u/L (0.00-0.03); IMMATURE GRAN % 0.6 % (0.00-0.4); Lymphocyte (Absolute #) 0.51 x10^3/uL (1.0-4.6); Lymphocytes % 5.6 % (24.0-44.0); Mean Corpuscular Hemoglobin 25.8 pg (26-32); Mean Corpuscular Hgb Concent. 29.7 g/dL (32-36); Mean Platelet Volume 9.4 fL (7.5-11.0); Monocyte (Absolute #) 0.74 x10^3/uL (0.0-1.3); Monocytes % 8.1 % (0.0-12.0); Neutrophil % 81.5 % (36.0-66.0); Platelet Count 172 x10^3/uL (150-450); Red Blood Count 4.07 x10^6/uL (4.1-5.4); Red Cell Distribution Width 17.5 % (11.5-14.0); White Blood Count 9.1 x10^3/uL (4.0-10.5)
[2023-06-02 05:33] LABS: ALBUMIN 3.6 g/dL (3.5-5.0)
[2023-06-02] MEDS: MORPHINE SULFATE 2 MG INJ IV PRN (06:02)
[2023-06-02 06:07] LABS: ANION GAP 15.7 MEQ/L (5-15); BILIRUBIN,TOTAL 1.3 mg/dL (0.2-1.3); Calcium 8.6 mg/dL (8.4-10.2); Creatinine 1 2.96 mg/dL (0.52-1.04); EST GLOMERULAR FILTRATION RATE 15.6 ML/MIN; Potassium 4.8 mmol/L (3.5-5.1); TROPONIN 0.031 ng/mL (0.000-0.034); Total Protein 6.5 g/dL (6.3-8.2)
[2023-06-02] MEDS: PIPERACILLIN/TAZOBACTAM 3.375 GM in Sodium Chloride 100ML MINI-BAG PLUS 100 ML IV SCH (06:45)
[2023-06-02] MEDS ORDERED: DUONEB 0.5-3 MG/3 ml Neb IH ONE (07:05)
[2023-06-02] MEDS: DUONEB 0.5-3 MG/3 ml Neb IH SCH (07:10)
[2023-06-02] MEDS ORDERED: APRESOLINE 20 MG/ML INJ IV PRN (07:45)
[2023-06-02 07:49] LABS: Slide Review 1 YES
[2023-06-02] MEDS: Sodium Bicarbonate 50 MEQ/50 ML VIAL*** 150 MEQ in Dextrose 5%/Water IV Soln. 1000 ML 1... IV SCH (07:59)
[2023-06-02] MEDS ORDERED: MEDICATION INTERVENTION MC SCH (08:00)
[2023-06-02] MEDS ORDERED: NON-FORMULARY ITEM (Fluticasone/Umeclidin/Vilanter [Trelegy Ellipta 100-62.5-25] 1 EACH Bl IH SCH (10:00)
[2023-06-02] MEDS ORDERED: NON-FORMULARY ITEM (Bumetanide [Bumetanide] 2 MG Tablet) PO SCH (10:00)
[2023-06-02] MEDS ORDERED: ZYLOPRIM 300 MG PO SCH (10:00)
[2023-06-02] MEDS ORDERED: ISOSORBIDE MONONITRATE 120 MG PO SCH (10:00)
[2023-06-02] MEDS ORDERED: Coreg 3.125 MG PO SCH (10:00)
[2023-06-02] MEDS: ECOTRIN 81 MG PO SCH (10:53)
[2023-06-02] MEDS: Singulair 10 MG PO SCH (10:53)
[2023-06-02] MEDS: Imdur 60MG PO SCH (10:53)
[2023-06-02] MEDS: COREG 12.5 MG PO SCH (10:53)
[2023-06-02] MEDS: ENOXAPARIN SODIUM SQ SCH (10:54)
[2023-06-02] MEDS: SYNTHROID 88 MCG PO SCH (10:54)
[2023-06-02] MEDS: BIOTENE MM SCH (10:54)
[2023-06-02] MEDS: Protonix 40MG Tablet PO SCH (10:54)
[2023-06-02] MEDS: Klor Con PO SCH (11:41)
[2023-06-02] MEDS: Piperacillin/Tazobactam 2.25 GM 2.25 GM in Sodium Chloride 100ML MINI-BAG PLUS 100 ML IV SCH (13:38)
[2023-06-02] MEDS ORDERED: Miralax Powder 17GM PACKET PO PRN (14:28)
[2023-06-02] MEDS: ZOCOR 20MG PO SCH (21:09)
[2023-06-02] MEDS: DUONEB 0.5-3 MG/3 ml Neb IH PRN (23:06)
[2023-06-03 05:26] LABS: Hematocrit 31.1 % (35-47); Hemoglobin 9.8 g/dL (12.0-16.0); Mean Cell Volume 84.7 fL (78-100); Mean Corpuscular Hemoglobin 26.7 pg (26-32); Mean Corpuscular Hgb Concent. 31.5 g/dL (32-36); Mean Platelet Volume 9.5 fL (7.5-11.0); Platelet Count 169 x10^3/uL (150-450); Red Blood Count 3.67 x10^6/uL (4.1-5.4); Red Cell Distribution Width 17.4 % (11.5-14.0); White Blood Count 5.9 x10^3/uL (4.0-10.5)
[2023-06-03 06:30] LABS: ALBUMIN 3.6 g/dL (3.5-5.0); ANION GAP 14.4 MEQ/L (5-15); BILIRUBIN,TOTAL 1.1 mg/dL (0.2-1.3); Calcium 8.3 mg/dL (8.4-10.2); Creatinine 1 2.54 mg/dL (0.52-1.04); EST GLOMERULAR FILTRATION RATE 18.7 ML/MIN; Potassium 4.5 mmol/L (3.5-5.1); Total Protein 6.5 g/dL (6.3-8.2)
--- NOTE | 2023-06-03 08:59 | PCM.DS ---
Discharge Summary Date of Admission: 06/02/23 02:20 Date of Discharge: 06/03/23 Admitting Physician: JOY SANCHEZ MD Primary Care Provider: ERNESTINE RIOS Allergies Allergies codeine [Codeine] Allergy (Mild, Verified 06/01/23 20:16) Rash azithromycin [From Zithromax] Adverse Reaction (Verified 06/01/23 20:16) erythromycin base Adverse Reaction (Verified 06/01/23 20:17) Hospital Summary - Hospital Course Hospital Course: History of Present Illness: Ms. Yu is a 77 year old female with a past medical history significant for hypertension, hypothyroidism, gout, COPD and chronic kidney disease stage IV with a baseline creatinine ~ 2.4. She presented to the hospital two weeks ago with abdominal pain and was felt to have diverticulitis. She was given Flagyl and Indomethacin and discharged but returned with complaints of weakness, dizziness and continued abdominal/back pain. She underwent CT back/abd/pelvis which demonstrated some kyphosis and diverticular disease with R pleural effusion. Her initial labs were notable for a marked worsening of her kidney function with a creatinine up to 3.7. No IV contrast exposure but she has been taking NSAIDs. SAMANTA has improved and will have pt f/u with nephrology Dr. Julián MILLER. Bicarb has improved. She no longer is having abd. pain. Will have RT eval for home O2 need. Pt reports she has had oxygen in the past at home. She denies any further concerns at this time. - Vitals & Intake/Output Vital Signs: Vital Signs Temperature 97.1 F 06/03/23 07:42 Pulse Rate 70 06/03/23 08:28 Respiratory Rate 18 06/03/23 08:28 Blood Pressure 146/72 06/03/23 07:42 O2 Sat by Pulse Oximetry 96 06/03/23 08:28 Intake & Output: Intake & Output 05/31/23 06/01/23 06/02/23 06/03/23 11:59 11:59 11:59 11:59 Intake Total 50 2968 Output Total 600 Balance 50 2368 Weight 77.9 kg - Lab Result Diagrams: 06/03/23 04:00 06/03/23 04:30 Lab Results-Last 24 Hrs: Lab Results-Last 24 Hours 06/03/23 06/03/23 Range/Units 04:00 04:30 WBC 5.9 (4.0-10.5) x10^3/uL RBC 3.67 L (4.1-5.4) x10^6/uL Hgb 9.8 L (12.0-16.0) g/dL Hct 31.1 L (35-47) % MCV 84.7 (78-100) fL MCH 26.7 (26-32) pg MCHC 31.5 L (32-36) g/dL RDW 17.4 H (11.5-14.0) % Plt Count 169 (150-450) x10^3/uL MPV 9.5 (7.5-11.0) fL Sodium 134 L (137-145) mmol/L Potassium 4.5 (3.5-5.1) mmol/L Chloride 104 (98-107) mmol/L Carbon Dioxide 20 L (22-30) mmol/L Anion Gap 14.4 (5-15) MEQ/L BUN 59 H (7-17) mg/dL Creatinine 2.54 H (0.52-1.04) mg/dL Estimated GFR 18.7 ML/MIN Glucose 120 H (74-106) mg/dL Calcium 8.3 L (8.4-10.2) mg/dL Total Bilirubin 1.10 (0.2-1.3) mg/dL AST 31 (14-36) U/L ALT 15 (0-35) U/L Alkaline Phosphatase 138 H (38-126) U/L Serum Total Protein 6.5 (6.3-8.2) g/dL Albumin 3.6 (3.5-5.0) g/dL - Radiology Exams Ordered Rad Exams-Entire Visit: Radiology Procedures Category Date Time Status ABDOMEN AND PELVIS W/0 CONTRAS [CT] Stat Exams 06/01/23 20:43 Completed CHEST WITHOUT CONTRAST [CT] Stat Exams 06/01/23 20:46 Completed HEAD WITHOUT CONTRAST [CT] Stat Exams 06/01/23 20:45 Completed RECONSTRUCTION [CT] Stat Exams 06/01/23 21:20 Completed RECONSTRUCTION [CT] Stat Exams 06/01/23 21:23 Completed - Procedures and Test Procedures and Tests throughout Hospitalization: Therapy Orders & Screens 06/02/23 02:01 EKG REPEAT IN AM Comment: Oxygen Nasal Cannula 2 lpm Comment: 06/02/23 03:03 Respiratory Therapy Assessment DAILY Comment: Diagnosis: Acute diverticulitis; Dyspnea; Back pain; Lightheadedness 06/03/23 07:10 PT Eval & Treat ( Order) ONCE Reason for Eval:: lightheadedness Diagnosis: Acute diverticulitis; Dyspnea; Back pain; Lightheadedness Discharge Exam General Appearance: no apparent distress, alert Neurologic Exam: alert, oriented x 3, cooperative, normal mood/affect, nml cerebellar function, sensation nml, No motor deficits Eye Exam: PERRL, EOMI, eyes nml inspection Ears, Nose, Throat Exam: normal ENT inspection, pharynx normal, moist mucous membranes Neck Exam: normal inspection, non-tender, supple, full range of motion Respiratory Exam: normal breath sounds, lungs clear, No respiratory distress Cardiovascular Exam: regular rate/rhythm, normal heart sounds, edema (+2 pitting BLLE) Gastrointestinal/Abdomen Exam: soft, No tenderness, No mass Pelvic Exam: deferred Rectal Exam: deferred Back Exam: normal inspection, normal range of motion, No CVA tenderness, No vertebral tenderness Extremity Exam: normal inspection, normal range of motion Skin Exam: normal color, warm, dry Final Diagnosis/Problem List - Final Discharge Diagnosis/Problem (1) Acute diverticulitis Current Visit: Yes Status: Acute Assessment & Plan: - Zosyn - CT abd pelvis: 06/01 IMPRESSION: 1. Multiple colonic diverticula with asymmetric wall thickening involving the descending colon for a maximum length of 3.5cm (coronal images: 84/167). There is mildpericolonic fat stranding. This may suggest acute uncomplicated diverticulitis and follow up is recommended. 2. Mild right pleural effusion and ascites. Code(s): K57.92 - DVTRCLI OF INTEST, PART UNSP, W/O PERF OR ABSCESS W/O BLEED (2) Metabolic acidosis Current Visit: Yes Status: Acute Assessment & Plan: - Bicarb gtt - improved - 2/2 acute on chronic kidney disease Code(s): E87.20 - ACIDOSIS, UNSPECIFIED (3) Dyspnea Current Visit: Yes Status: Acute Assessment & Plan: - 2LNC intermittent IP - Pt reports she used to have O2 at home but no longer has this - Today RA 96% - RT eval for home O2 - Pt qualifies for home O2 Code(s): R06.00 - DYSPNEA, UNSPECIFIED (4) Hyponatremia Current Visit: Yes Status: Acute Assessment & Plan: - Na+ 134 mild Code(s): E87.1 - HYPO-OSMOLALITY AND HYPONATREMIA (5) Lightheadedness Current Visit: Yes Status: Acute Assessment & Plan: - resolved - PT eval Code(s): R42 - DIZZINESS AND GIDDINESS (6) Acute on chronic renal insufficiency Current Visit: No Status: Acute Assessment & Plan: - improved - F/U with - nephrology OP Code(s): N28.9 - DISORDER OF KIDNEY AND URETER, UNSPECIFIED; N18.9 - CHRONIC KIDNEY DISEASE, UNSPECIFIED (7) COPD (chronic obstructive pulmonary disease) Current Visit: No Status: Chronic Assessment & Plan: - chronic - qualified for home O2 per RT - case management setting up oxygen delivery. - Discharge Discharge Date: 06/03/23 Disposition: Home, Self-Care Condition: Stable Prescriptions: New Amox Tr/Potass Clav. 500 mg [Augmentin 500-125 Tablet] 500 mg PO BID 7 Days #14 tablet Continue Levothyroxine Sodium 88 Mcg [Synthroid 88 Mcg] 88 mcg PO DAILY Montelukast Sodium 10 mg [Singulair 10 MG] 10 mg PO DAILY Aspirin EC 81 mg [Ecotrin 81 mg] 81 mg PO DAILY Allopurinol 300 mg [Zyloprim 300 mg] 300 mg PO DAILY Atorvastatin Calcium [Lipitor 40Mg] 20 mg PO QHS Ipratropium/Albuterol Sulfate [Iprat-Albut 0.5-3(2.5) mg/3 ml] 3 ml NEB QID PRN PRN PRN Reason: Shortness Of Breath/Wheezing PANTOPRAZOLE 40 mg Tablet [Protonix 40MG Tablet] 40 mg PO BID Isosorbide Mononitrate [Isosorbide Mononitrate ER] 120 mg PO DAILY Carvedilol 3.125 mg [Coreg 3.125 MG] 3.125 mg PO BID Potassium Chloride Tab* [Klor Con] 20 meq PO DAILY Fluticasone/Umeclidin/Vilanter [Trelegy Ellipta 100-62.5-25] 1 puff IH DAILY Bumetanide 2 mg PO DAILY Hydralazine HCl 75 mg PO BID Discontinued Metronidazole 500 mg [Flagyl 500 MG] 1 tab PO TID Indomethacin 25 mg [Indocin 25 MG] 1 tab PO BID Instructions: Oxygen Therapy, Adult (DC) Additional Instructions: WEAR 3L/NC AT ALL TIMES Please obtain and OTC probiotc. Augmentin can cause upset stomach and diarrhea. A probiotic will help with symptoms. If you continue to have dry mouth Biotene can be purchased OTC. There is a generic brand at [facility] that is a bit cheaper. Please avoid all NSAIDS at this time. Follow up with nephrology as scheduled. Follow up with: KARYN MELCHOR [CONSULTING PHYSICIAN] - 06/16/23 2:20 pm ([address] [place] [address],[place] [id number]) ERNESTINE RIOS MD [Primary Care Provider] - 06/09/23 11:00 am (at [facility])
[2023-06-03 12:08] VITALS: BP 152/76; PULSE 68; RESP 17; TEMP 97; O2SAT 93
[2023-06-03 12:31] LABS: ALBUMIN 3.7 g/dL (3.5-5.0); ANION GAP 13.7 MEQ/L (5-15); BILIRUBIN,TOTAL 1.1 mg/dL (0.2-1.3); Calcium 8.3 mg/dL (8.4-10.2); Creatinine 1 2.32 mg/dL (0.52-1.04); EST GLOMERULAR FILTRATION RATE 20.9 ML/MIN; Potassium 4.5 mmol/L (3.5-5.1); Total Protein 6.6 g/dL (6.3-8.2)
== END 2023-06-03 14:18 | disposition home or self-care (01) ==
LOC: ED 19:58 → MED SURG 06-02 02:20
PROVIDERS: ADMIT Internal Medicine Nephrology; ATTEND Internal Medicine Nephrology
DX: K57.92 Diverticulitis of intestine, part unspecified, without perforation or abscess without bleeding (principal); E87.20 Acidosis, unspecified; R06.00 Dyspnea, unspecified; E87.1 Hypo-osmolality and hyponatremia; R42 Dizziness and giddiness; N28.9 Disorder of kidney and ureter, unspecified; I13.0 Hypertensive heart and chronic kidney disease with heart failure and stage 1 through stage 4 chronic kidney disease, or unspecified chronic kidney disease; N18.4 Chronic kidney disease, stage 4 (severe); I50.9 Heart failure, unspecified; J44.9 Chronic obstructive pulmonary disease, unspecified; E03.9 Hypothyroidism, unspecified; E78.5 Hyperlipidemia, unspecified; I25.10 Atherosclerotic heart disease of native coronary artery without angina pectoris; D64.9 Anemia, unspecified; F17.200 Nicotine dependence, unspecified, uncomplicated; Z79.899 Other long term (current) drug therapy; Z20.828 Contact with and (suspected) exposure to other viral communicable diseases
CPT/HCPCS: 0241U; 36000; 36415; 70450; 71250; 74176; 76376; 80053; 81001; 82150; 83690; 84484; 85025; 85027; 86308; 93005; 93268; 94640; 94760; 94762; 96360; 96374; 96375; 99285; J1650; J2270; J2405; J2543; Q3014; A9270-GY; G0378

== ENCOUNTER 2024-11-11 20:57 | Observation (INO) | payer MEDICARE ==
[2024-11-11] MEDS ORDERED: D50W 50 ml Abboject IV ONE ×2 (21:12→23:02)
[2024-11-11] MEDS ORDERED: GlucaGen 1 MG ONE (21:17)
[2024-11-11 21:57] LABS: Hematocrit 35.3 % (34.1-44.9); Hemoglobin 11.5 g/dL (11.2-15.7); Mean Corpuscular Hemoglobin 28.7 pg (25.6-32.2); Mean Corpuscular Hgb Concent. 32.6 g/dL (32.2-35.5); Platelet Count 100 x10^3/uL (182-369); Red Blood Count 4.01 x10^6/uL (3.93-5.22); White Blood Count 13.2 x10^3/uL (3.98-10.04)
[2024-11-11 22:04] LABS: Glucose, Urine Negative (Negative); Protein,Urine Dip 300 (Negative); WBC >100 /HPF (0-5)
[2024-11-11] MEDS: PROAMATINE PO STA (22:09)
[2024-11-11] MEDS ORDERED: Zofran 4 MG/2 ML VIAL ONE (22:16)
[2024-11-11] MEDS: Zofran 4 MG/2 ML VIAL IV ONE (22:17)
[2024-11-11 22:27] LABS: Calcium 7.4 mg/dL (8.4-10.2); Carbon Dioxide 27.0 mmol/L (22-30); Creatinine 1 2.39 mg/dL (0.52-1.04); EST GLOMERULAR FILTRATION RATE 19.9 ML/MIN; Glucose 209.0 mg/dL (74-106); Potassium 3.4 mmol/L (3.5-5.1); SGOT/AST 29.0 U/L (14-36); SGPT/ALT 11.0 U/L (0-35); Total Protein 4.6 g/dL (6.3-8.2)
[2024-11-11] MEDS: D50W 50 ml Abboject IV STA (23:08)
[2024-11-11] MEDS ORDERED: PIPERACILLIN/TAZOBACTAM IV ONE (23:10)
[2024-11-11] MEDS ORDERED: NOREPINEPHRINE 8 MG/250 ML-D5W 8 MG/250 ML PLAST..BAG IV ONE (23:27)
--- NOTE | 2024-11-11 23:33 | ERPHSYRPT ---
- History of Present Illness Time Seen by Provider: 11/11/24 20:59 Source: patient, family, EMS, [facility] records Exam Limitations: clinical condition Patient Subjective Stated Complaint: c/o "not feeling well today" Triage Nursing Assessment: patient is brought to ED by ambulance from [facility] with c/o of not feelign well and vomiting. patient had dialysis yesterday. slightly hypertensive, Ax0x2, afebrile, skin w/n/d, sugar was 30 upon arrival Physician History: 79-year-old female with history of ESRD on dialysis 3 times a week, last 1 yesterday, atrial fibrillation with Watchman/pacemaker implant, hyperlipidemia, hypothyroidism, congestive heart failure, orthostatic hypotension on midodrine [facility] is brought to the ER with complaints of not acting herself and feeling weak fatigued and tired for the last couple of days. Daughter reports patient is having visual hallucinations. Earlier she was having multiple episodes of nonprojectile, nonbilious vomiting with generalized abdominal cramping. She was also short of breath with oxygen saturation of 88%, placed on 6 L oxygen. Patient is awake alert but sleepy. Blood glucose in 30s. She is given IM shot of glucagon, central line placed and given D50 with improvement in glucose to 150s. She is weaned down to 2 L with saturation in low 90s. Allergies/Adverse Reactions: codeine [Codeine] Allergy (Mild, Verified 11/11/24 20:59) Rash azithromycin [From Zithromax] Adverse Reaction (Verified 11/11/24 20:59) erythromycin base Adverse Reaction (Verified 11/11/24 20:59) Home Medications: Levothyroxine Sodium 88 Mcg [Synthroid 88 Mcg] 88 mcg PO DAILY 03/18/12 [History] Aspirin EC 81 mg [Ecotrin 81 mg] 81 mg PO DAILY 07/11/21 [History] Montelukast Sodium 10 mg [Singulair 10 MG] 10 mg PO DAILY 07/11/21 [History] Allopurinol 300 mg [Zyloprim 300 mg] 300 mg PO DAILY 01/08/22 [History] Atorvastatin Calcium [Lipitor 40Mg] 40 mg PO DAILY 01/08/22 [History] Fluticasone/Umeclidin/Vilanter [Trelegy Ellipta 100-62.5-25] 1 puff IH DAILY 06/01/23 [History] Albuterol/Ipratropium 3ml Neb* [DUONEB 0.5-3 MG/3 ml Neb] 1 inh IH Q6-8HPRN PRN 11/11/24 [History] Ferrous Gluconate 324 mg PO BID 11/11/24 [History] Lidocaine 1 patch TP DAILY 11/11/24 [History] Midodrine HCl 20 mg PO TID 11/11/24 [History] Omeprazole 1 cap PO BID 11/11/24 [History] ondansetron HCL [Ondansetron HCl] 8 mg PO BID 11/11/24 [History] Hx Tetanus, Diphtheria Vaccination/Date Given: Yes Hx Influenza Vaccination/Date Given: Yes Hx Pneumococcal Vaccination/Date Given: Yes Travel Risk - International Travel Have you traveled outside of the country in past 3 weeks: No - Emerging Infectious Disease Are you exhibiting symptoms associated with any current EIDs: Yes Symptoms: Vomitting - Review of Systems All Other Systems: Unable due to condition - Past Medical History Pertinent Past Medical History: Yes Neurological History: No Pertinent History ENT History: Cataracts Cardiac History: Congestive Heart Failure, Coronary Artery Disease, High Cholesterol, Hypertension, Other Respiratory History: Asthma, Bronchitis, COPD Endocrine Medical History: Hypothyroidism Musculoskeletal History: No Pertinent History GI Medical History: GERD, GI Bleed, Hernia History: Renal Disease Psycho-Social History: No Pertinent History Female Reproductive Disorders: Abnormal Uterine Bleeding Other Medical History: anemia, pacemaker, watchman device - Past Surgical History Past Surgical History: Yes Neuro Surgical History: No Pertinent History Cardiac: Cardiac Catheterization, Cardiac Stent, Pacemaker Respiratory: No Pertinent History Gastrointestinal: Cholecystectomy Genitourinary: No Pertinent History Musculoskeletal: No Pertinent History Female Surgical History: Hysterectomy Other Surgical History: 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, pacemaker, watchman device Significant Family History: no pertinent family hx - Social History Smoking Status: Never smoker Exposure to second hand smoke: No Drug Use: none - Social Determinants of Health Will the patient participate in the screening: Yes Do you worry about a steady place to live?: No Do you have any problems with any of the following?: No known problems In the past 12 months,have you had to go without utilities?: No Transportation Issues: No Has anyone in your support network made you feel unsafe?: No Have you or anyone in your house had to go w/o enough food: No - Nursing Vital Signs Nursing Vital Signs: Initial Vital Signs Temperature 98.1 F 11/11/24 21:02 Pulse Rate 70 11/11/24 21:02 Respiratory Rate 18 11/11/24 21:02 Blood Pressure 134/112 11/11/24 21:02 O2 Sat by Pulse Oximetry 100 11/11/24 21:02 Pain Scale Pain Intensity 7 - Physical Exam General Appearance: lethargy Eye Exam: PERRL/EOMI Ears, Nose, Throat Exam: dry mucous membranes Neck Exam: normal inspection, full range of motion Respiratory Exam: diminished breath sounds, crackles/rales Cardiovascular Exam: regular rate/rhythm, No normal heart sounds Gastrointestinal/Abdomen Exam: soft, normal bowel sounds, tenderness (Mild generalized), distention Back Exam: decreased range of motion Extremity Exam: pelvis stable Neurologic Exam: alert, oriented x 3, cooperative, No motor deficits Skin Exam: normal color SpO2 Interpretation: hypoxic, O2 applied SpO2: 95 O2 Delivery: Nasal Cannula Procedures - Central Line Timeout: Performed Central Line Lumen: triple Lumen Size: 7 Greek Central Line Procedure: chlorahexadine prep, sterile drapes applied, sterile dressing applied, Aseptic Technique, Seldinger Technique Central Line Postion: femoral (R) Anesthesia: 1% Lidocaine cc's of anesthesia: 3 Ultrasound Guided Placement: No Complications: none Central Line Post Position: sutured, good blood return - Course EKG Interpreted by Me: RATE (68 paced rhythm), Left [place] Deviation, Non-specific ST Changes, Other (No ST elevations) Ordered Tests: Active Orders 24 hr Category Date Time Status Call Admit Doctor for Orders ON ADMISSION Care 11/12/24 02:38 Active Code Status Order ROUTINE Care 11/12/24 02:38 Active EKG-ER Only STAT Care 11/11/24 21:37 Completed IV Insertion STAT Care 11/11/24 21:37 Completed NPO (ED) STAT Care 11/11/24 21:[address] in Observation ROUTINE Care 11/12/24 02:38 Active ABDOMEN AND PELVIS W/0 CONTRAS [CT] Stat Exams 11/11/24 22:41 Completed CHEST WITHOUT CONTRAST [CT] Stat Exams 11/11/24 22:41 Completed BLOOD CULTURE Stat Lab 11/11/24 21:38 Received CBC W DIFF Stat Lab 11/11/24 21:45 Completed CMP Stat Lab 11/11/24 21:45 Completed CULTURE,URINE Stat Lab 11/11/24 21:45 Received LIPASE Stat Lab 11/11/24 21:45 Completed Lactic Acid Stat Lab 11/11/24 21:47 Completed Manual Differential NC Stat Lab 11/11/24 21:45 Completed POCT GLUCOSE Stat Lab 11/11/24 21:08 Completed POCT GLUCOSE Stat Lab 11/11/24 21:36 Completed POCT GLUCOSE Stat Lab 11/11/24 23:01 Completed POCT GLUCOSE Stat Lab 11/11/24 23:39 Completed POCT GLUCOSE Stat Lab 11/12/24 00:36 Completed PROCALCITONIN Stat Lab 11/11/24 21:45 Completed TROPONIN Q4H Lab 11/11/24 21:45 Completed UA W/RFX UR CULTURE Stat Lab 11/11/24 21:45 Completed Respiratory Therapy Assessment DAILY RT 11/11/24 23:40 Completed Transfer Order Routine Transfer 11/12/24 Completed Medication Summary Generic Name Dose Route Start Last Admin Trade Name Freq PRN Reason Stop Dose Admin Hydromorphone HCl 1 mg 11/12/24 03:15 Hydromorphone 1 Mg/1ml Inj IV 11/17/24 03:14 Q4H PRN PRN PAIN Lorazepam 1 mg 11/12/24 03:14 Lorazepam 2 Mg/1 Ml 2 Mg Vial IV 12/12/24 03:13 Q2H PRN PRN ANXIETY/AGITATION Ondansetron HCl 4 mg 11/12/24 04:40 11/12/24 04:56 Ondansetron Hcl 4 Mg/2 Ml Vial IV 12/12/24 04:39 4 mg Q4H PRN PRN Administration NAUSEA/VOMITING Prochlorperazine Edisylate 10 mg 11/12/24 05:28 11/12/24 05:35 Prochlorperazine Edisylate 10 Mg/2 Ml Vial IV 12/12/24 05:27 10 mg Q6H PRN PRN Administration NAUSEA/VOMITING Discontinued Medications Generic Name Dose Route Start Last Admin Trade Name Freq PRN Reason Stop Dose Admin Albuterol/Ipratropium 3 ml 11/11/24 23:30 11/11/24 23:36 Ipratropium/Albuterol Sulfate 3 Ml Ampul.Neb IH 11/11/24 23:31 3 ml STAT ONE Administration Albuterol/Ipratropium Confirm 11/11/24 23:34 Ipratropium/Albuterol Sulfate 3 Ml Ampul.Neb Administered 11/11/24 23:35 Dose 3 ml IH .STK-MED ONE Dextrose Confirm 11/11/24 21:12 Dextrose 50%-Water 50 Ml Abboject Administered 11/11/24 21:13 Dose 50 ml IV .STK-MED ONE Dextrose Confirm 11/11/24 23:02 Dextrose 50%-Water 50 Ml Abboject Administered 11/11/24 23:03 Dose 50 ml IV .STK-MED ONE Dextrose 50 ml 11/11/24 23:07 11/11/24 23:08 Dextrose 50%-Water 50 Ml Abboject IV 11/11/24 23:08 50 ml STAT STA Administration Dextrose 50 ml 11/12/24 00:39 11/12/24 00:47 Dextrose 50%-Water 50 Ml Abboject IV 11/12/24 00:40 50 ml STAT STA Administration Dextrose Confirm 11/12/24 00:42 Dextrose 50%-Water 50 Ml Abboject Administered 11/12/24 00:43 Dose 50 ml IV .STK-MED ONE Fentanyl Citrate Confirm 11/12/24 00:55 Fentanyl Citrate 100 Mcg/2 Ml* Vial Administered 11/12/24 00:56 Dose 100 mcg .ROUTE .STK-MED ONE Fentanyl Citrate 50 mcg 11/12/24 00:55 11/12/24 01:04 Fentanyl Citrate 100 Mcg/2 Ml* Vial IV 11/12/24 00:56 50 mcg STAT ONE Administration Fentanyl Citrate Confirm 11/12/24 01:56 Fentanyl Citrate 100 Mcg/2 Ml* Vial Administered 11/12/24 01:57 Dose 100 mcg .ROUTE .STK-MED ONE Glucagon Confirm 11/11/24 21:17 Glucagon 1 Mg/Vial Vial Administered 11/11/24 21:18 Dose 1 mg .ROUTE .STK-MED ONE Sodium Chloride 1,000 mls @ 100 mls/hr 11/11/24 21:45 11/11/24 23:51 Sodium Chloride 0.9% 1000 Ml IV 12/11/24 21:44 0 mls/hr .Q10H JORGE Infusion Piperacillin Sod/Tazobactam 100 mls @ 200 mls/hr 11/11/24 23:08 11/11/24 23:41 Sod 3.375 gm/ Sodium Chloride IV 11/11/24 23:37 Infused STAT STA Infusion Sodium Chloride Confirm 11/11/24 23:10 Sodium Chloride 0.9% Administered 11/11/24 23:11 Dose 100 mls @ ud .ROUTE .STK-MED ONE Norepinephrine/Dextrose Confirm 11/11/24 23:27 Norepinephrine 8 Mg/250 Ml-D5w Administered 11/11/24 23:28 Dose 8 mg in 250 mls @ ud IV .STK-MED ONE Norepinephrine/Dextrose 8 mg in 250 mls @ 15 mls/hr 11/11/24 23:28 11/12/24 00:03 Norepinephrine 8 Mg/250 Ml-D5w IV 11/12/24 16:07 10 mcg/min .[id number] STA 18.75 mls/hr Titration Protocol 8 MCG/MIN Vancomycin HCl 1.5 gm in 300 mls @ 150 mls/hr 11/12/24 00:38 Vancomycin 1.5 Gram/300 Ml Bag IV 11/12/24 02:37 Q12H STA Sodium Chloride Confirm 11/11/24 22:06 Sodium Chloride 0.9% 1000 Ml Administered 11/11/24 22:07 Dose 1,000 mls @ ud .ROUTE .STK-MED ONE Midodrine 5 mg 11/11/24 22:00 11/11/24 22:09 Midodrine Hcl 5 Mg Tablet PO 11/11/24 22:01 5 mg TID STA Administration Ondansetron HCl 4 mg 11/11/24 21:37 11/11/24 22:17 Ondansetron Hcl 4 Mg/2 Ml Vial IV 11/11/24 21:38 4 mg STAT ONE Administration Ondansetron HCl Confirm 11/11/24 22:16 Ondansetron Hcl 4 Mg/2 Ml Vial Administered 11/11/24 22:17 Dose 4 mg .ROUTE .STK-MED ONE Ondansetron HCl Confirm 11/12/24 00:54 Ondansetron Hcl 4 Mg/2 Ml Vial Administered 11/12/24 00:55 Dose 4 mg .ROUTE .STK-MED ONE Ondansetron HCl 4 mg 11/12/24 01:05 11/12/24 01:06 Ondansetron Hcl 4 Mg/2 Ml Vial IV 11/12/24 01:06 4 mg STAT ONE Administration Piperacillin Sod/Tazobactam Sod Confirm 11/11/24 23:10 Piperacillin/Tazobactam Sodium 3.375 Gm Vial Administered 11/11/24 23:11 Dose 3.375 gm IV .STK-MED ONE Lab/Rad Data: Laboratory Result Diagrams 11/11/24 21:45 11/11/24 21:45 Laboratory Results 11/12/24 11/11/24 11/11/24 Range/Units 00:36 23:39 23:01 WBC (3.98-10.04) x10^3/uL RBC (3.93-5.22) x10^6/uL Hgb (11.2-15.7) g/dL Hct (34.1-44.9) % MCV (79.4-94.8) fL MCH (25.6-32.2) pg MCHC (32.2-35.5) g/dL RDW (11.7-14.4) % Plt Count (182-369) x10^3/uL MPV (9.4-12.3) fL Segmented Neutrophils (34.0-71.1) % Band Neutrophils (0.0-2.0) % Lymphocytes (Manual) (19.3-51.7) % Monocytes (Manual) (4.7-12.5) % Nucleated RBCs % Platelet Estimate (NORMAL) RBC Morphology Macrocytosis Sodium (135-145) mmol/L Potassium (3.5-5.1) mmol/L Chloride (98-107) mmol/L Carbon Dioxide (22-30) mmol/L Anion Gap (5-15) MEQ/L BUN (7-17) mg/dL Creatinine (0.52-1.04) mg/dL Estimated GFR ML/MIN Glucose (74-106) mg/dL POC Glucometer 86 114 H 72 L (50 to 500) mg/dL Lactic Acid (0.4-2.0) Calcium (8.4-10.2) mg/dL Total Bilirubin (0.2-1.3) mg/dL AST (14-36) U/L ALT (0-35) U/L Alkaline Phosphatase (38-126) U/L Troponin I (0.000-0.033) ng/mL Serum Total Protein (6.3-8.2) g/dL Albumin (3.5-5.0) g/dL Lipase (23-300) U/L Procalcitonin (0.030-0.080) ng/mL Urine Color (Yellow) Urine Appearance (Clear) Urine pH (4.6-8.0) Ur Specific [place] (1.005-1.030) Urine Protein (Negative) Urine Glucose (UA) (Negative) mg/dL Urine Ketones (Negative) Urine Blood (Negative) Urine Nitrite (Negative) Urine Bilirubin (Negative) Urine Urobilinogen (0.2) mg/dL Ur Leukocyte Esterase (Negative) U Hyaline Cast (Auto) (0-2) /LPF Urine Microscopic RBC (0-5) /HPF Urine Microscopic WBC (0-5) /HPF Ur Epithelial Cells (None Seen) /HPF Urine Bacteria (None Seen) /HPF Urine Culture Reflexed (NO) 11/11/24 11/11/24 11/11/24 Range/Units 21:47 21:45 21:45 WBC (3.98-10.04) x10^3/uL RBC (3.93-5.22) x10^6/uL Hgb (11.2-15.7) g/dL Hct (34.1-44.9) % MCV (79.4-94.8) fL MCH (25.6-32.2) pg MCHC (32.2-35.5) g/dL RDW (11.7-14.4) % Plt Count (182-369) x10^3/uL MPV (9.4-12.3) fL Segmented Neutrophils (34.0-71.1) % Band Neutrophils (0.0-2.0) % Lymphocytes (Manual) (19.3-51.7) % Monocytes (Manual) (4.7-12.5) % Nucleated RBCs % Platelet Estimate (NORMAL) RBC Morphology Macrocytosis Sodium 126 L (135-145) mmol/L Potassium 3.4 L (3.5-5.1) mmol/L Chloride 90 L (98-107) mmol/L Carbon Dioxide 27 (22-30) mmol/L Anion Gap 11.8 (5-15) MEQ/L BUN 22 H (7-17) mg/dL Creatinine 2.39 H (0.52-1.04) mg/dL Estimated GFR 19.9 ML/MIN Glucose 209 H (74-106) mg/dL POC Glucometer (50 to 500) mg/dL Lactic Acid 2.2 H (0.4-2.0) Calcium 7.4 L (8.4-10.2) mg/dL Total Bilirubin 2.00 H (0.2-1.3) mg/dL AST 29 (14-36) U/L ALT 11 (0-35) U/L Alkaline Phosphatase 136 H (38-126) U/L Troponin I 0.236 H* (0.000-0.033) ng/mL Serum Total Protein 4.6 L (6.3-8.2) g/dL Albumin 2.0 L (3.5-5.0) g/dL Lipase 73 (23-300) U/L Procalcitonin 2.000 H (0.030-0.080) ng/mL Urine Color (Yellow) Urine Appearance (Clear) Urine pH (4.6-8.0) Ur Specific [place] (1.005-1.030) Urine Protein (Negative) Urine Glucose (UA) (Negative) mg/dL Urine Ketones (Negative) Urine Blood (Negative) Urine Nitrite (Negative) Urine Bilirubin (Negative) Urine Urobilinogen (0.2) mg/dL Ur Leukocyte Esterase (Negative) U Hyaline Cast (Auto) (0-2) /LPF Urine Microscopic RBC (0-5) /HPF Urine Microscopic WBC (0-5) /HPF Ur Epithelial Cells (None Seen) /HPF Urine Bacteria (None Seen) /HPF Urine Culture Reflexed (NO) 11/11/24 11/11/24 11/11/24 Range/Units 21:45 21:45 21:36 WBC 13.2 H (3.98-10.04) x10^3/uL RBC 4.01 (3.93-5.22) x10^6/uL Hgb 11.5 (11.2-15.7) g/dL Hct 35.3 (34.1-44.9) % MCV 88.0 (79.4-94.8) fL MCH 28.7 (25.6-32.2) pg MCHC 32.6 (32.2-35.5) g/dL RDW 27.4 H (11.7-14.4) % Plt Count 100 L (182-369) x10^3/uL MPV 9.7 (9.4-12.3) fL Segmented Neutrophils 76 H (34.0-71.1) % Band Neutrophils 11 H (0.0-2.0) % Lymphocytes (Manual) 11 L (19.3-51.7) % Monocytes (Manual) 2 L (4.7-12.5) % Nucleated RBCs 2 % Platelet Estimate DECREASED (NORMAL) RBC Morphology ABNORMAL Macrocytosis 2+ Sodium (135-145) mmol/L Potassium (3.5-5.1) mmol/L Chloride (98-107) mmol/L Carbon Dioxide (22-30) mmol/L Anion Gap (5-15) MEQ/L BUN (7-17) mg/dL Creatinine (0.52-1.04) mg/dL Estimated GFR ML/MIN Glucose (74-106) mg/dL POC Glucometer 156 H (50 to 500) mg/dL Lactic Acid (0.4-2.0) Calcium (8.4-10.2) mg/dL Total Bilirubin (0.2-1.3) mg/dL AST (14-36) U/L ALT (0-35) U/L Alkaline Phosphatase (38-126) U/L Troponin I (0.000-0.033) ng/mL Serum Total Protein (6.3-8.2) g/dL Albumin (3.5-5.0) g/dL Lipase (23-300) U/L Procalcitonin (0.030-0.080) ng/mL Urine Color Dark Yellow A (Yellow) Urine Appearance Turbid A (Clear) Urine pH 6.0 (4.6-8.0) Ur Specific [place] 1.015 (1.005-1.030) Urine Protein 300 A (Negative) Urine Glucose (UA) Negative (Negative) mg/dL Urine Ketones Trace A (Negative) Urine Blood Large A (Negative) Urine Nitrite Negative (Negative) Urine Bilirubin Small A (Negative) Urine Urobilinogen 1.0 A (0.2) mg/dL Ur Leukocyte Esterase Large A (Negative) U Hyaline Cast (Auto) 6-10 A (0-2) /LPF Urine Microscopic RBC 6-10 A (0-5) /HPF Urine Microscopic WBC >100 A (0-5) /HPF Ur Epithelial Cells Moderate A (None Seen) /HPF Urine Bacteria Many A (None Seen) /HPF Urine Culture Reflexed YES (NO) 11/11/24 Range/Units 21:08 WBC (3.98-10.04) x10^3/uL RBC (3.93-5.22) x10^6/uL Hgb (11.2-15.7) g/dL Hct (34.1-44.9) % MCV (79.4-94.8) fL MCH (25.6-32.2) pg MCHC (32.2-35.5) g/dL RDW (11.7-14.4) % Plt Count (182-369) x10^3/uL MPV (9.4-12.3) fL Segmented Neutrophils (34.0-71.1) % Band Neutrophils (0.0-2.0) % Lymphocytes (Manual) (19.3-51.7) % Monocytes (Manual) (4.7-12.5) % Nucleated RBCs % Platelet Estimate (NORMAL) RBC Morphology Macrocytosis Sodium (135-145) mmol/L Potassium (3.5-5.1) mmol/L Chloride (98-107) mmol/L Carbon Dioxide (22-30) mmol/L Anion Gap (5-15) MEQ/L BUN (7-17) mg/dL Creatinine (0.52-1.04) mg/dL Estimated GFR ML/MIN Glucose (74-106) mg/dL POC Glucometer 30 L* (50 to 500) mg/dL Lactic Acid (0.4-2.0) Calcium (8.4-10.2) mg/dL Total Bilirubin (0.2-1.3) mg/dL AST (14-36) U/L ALT (0-35) U/L Alkaline Phosphatase (38-126) U/L Troponin I (0.000-0.033) ng/mL Serum Total Protein (6.3-8.2) g/dL Albumin (3.5-5.0) g/dL Lipase (23-300) U/L Procalcitonin (0.030-0.080) ng/mL Urine Color (Yellow) Urine Appearance (Clear) Urine pH (4.6-8.0) Ur Specific [place] (1.005-1.030) Urine Protein (Negative) Urine Glucose (UA) (Negative) mg/dL Urine Ketones (Negative) Urine Blood (Negative) Urine Nitrite (Negative) Urine Bilirubin (Negative) Urine Urobilinogen (0.2) mg/dL Ur Leukocyte Esterase (Negative) U Hyaline Cast (Auto) (0-2) /LPF Urine Microscopic RBC (0-5) /HPF Urine Microscopic WBC (0-5) /HPF Ur Epithelial Cells (None Seen) /HPF Urine Bacteria (None Seen) /HPF Urine Culture Reflexed (NO) - Progress Progress: re-examined Progress Note: 11/11/24 23:33 Differential diagnosis: Respiratory failure, pneumonia, pneumothorax, pleural effusion, acute coronary syndrome, pancreatitis, cholecystitis, viscus perforation, ascites, CHF exacerbation/fluid overload, severe sepsis 79-year-old with ESRD on dialysis is evaluated in the ER for intractable nausea vomiting, some element of confusion for the last couple of days and not acting herself. Patient was also hypoxic with saturation in upper 80s, placed on 6 L oxygen by EMS. She is found to have a glucose in the 30s, given IM glucagon followed by D50 with improvement in sugar to 150s. She is given gentle hydration as her blood pressure was low and also given a dose of midodrine with no significant improvement in blood pressure. Workup showed normal white count, procalcitonin of 2.0, creatinine of 2.3 and sodium of 126 but patient has similar sodium almost 6 days ago. EKG showed paced rhythm and initial troponin 0.23. I have obtained CT chest abdomen pelvis which showed bilateral pleural effusion and ascites interpreted by me, pending official read. Will hold off on fluid and she is started on Levophed as her pressure is still in 70s. She is also given a dose of Zosyn. 11/12/24 00:[address] chest showed moderate to severe bilateral pleural effusion with consolidation/collapse in bilateral lower lobes. Along with groundglass opacities and vascular congestion/cardiomegaly. CT abdomen pelvis showed mild ascites, abdominal wall edema but no other acute intra-abdominal pelvic findings. 11/12/24 00:23 Since patient needs multiple specialities, do not think can be better served here with no nephrology and dialysis. Patient wanted to go to [place], have no beds available until tomorrow. I have called [facility], discussed with Dr. Coto, reviewed history, workup and agreed with transfer. Plan discussed with patient and family which they understand and agree. 11/12/24 01:16 Patient was transferred to [facility] but later on who is the POA and other family members after prolonged discussion decided not to go for aggressive measure and would like to go comfort care. Patient is alert and oriented, do not want to be transferred and stays "let me go" means she wants to go for comfort care. I have discussed with patient and family in length about comfort care and the fact that we would not be doing aggressive measures and Levophed would be stopped which they understand and want to proceed with it. Recheck fingerstick as 86, given another ampule of D50. Patient [facility] be admitted to [facility]. Discussed with Dr. Mario Hess, reviewed history, workup and plan of comfort care and he agrees with admission. Complexity of problems addressed: High acuity Complexity of data reviewed/analyzed: Extensive, risk of complication: High risk Discussed with Dr.: Other (Dr. Coto [facility], Dr. Caleb Hess hospitalist [place]) Counseled pt/family regarding: lab results, diagnosis, need for follow-up, rad results Medical Desision Making - Independent Historian Additional History obtained from: Child, [facility] nurse, [facility] Room Supervisor/EMT - External Record(s) Reviewed Records reviewed as a part of evaluation & management: Discharge Summary, assisted, EMS - Discussion of managment Care discussed with:: on-call "doc" Reviewed:: Test results Agreed on:: Treatment plan Will see patient: in ED - Diagnostic Testing Diagnostic test were ordered, analyzed, and reviewed by me: Yes Radiological Interpretation: Interpreted by me, Reviewed by me, Teleradiologist Report - Risk of complications The pt has a mod risk of morbidity or mortality based on: Need for prescription drug management The pt has a high risk of morbidity or mortality based on: Drug therapy requiring intensive monitoring for toxicity, Decision regarding hospitilization or escalation of hosp level of care - Departure Departure Disposition: Observation Clinical Impression: Acute exacerbation of CHF (congestive heart failure), Pneumonia, Bilateral pleural effusion, Severe sepsis, Hypoglycemia, Hyponatremia, Acute UTI (urinary tract infection), Elevated troponin, Respiratory failure, Fluid overload Condition: Poor Critical Care Time: Yes Critical Care Time(excluding separately billable procedures): Critical 105-134 mins
[2024-11-11] MEDS: NOREPINEPHRINE 8 MG/250 ML-D5W 8 MG/250 ML PLAST..BAG IV STA (23:34)
[2024-11-11] MEDS ORDERED: DUONEB 0.5-3 MG/3 ml Neb IH ONE (23:34)
[2024-11-11] MEDS: DUONEB 0.5-3 MG/3 ml Neb IH ONE (23:36)
--- NOTE | 2024-11-11 23:58 | XRAY ---
CLINICAL HISTORY: vomiting, gen weakness COMPARISON: 06/01/2023 CT. TECHNIQUE: Contiguous axial CT images of the chest were acquired without administration of intravenous contrast. Coronal and sagittal reconstructions were obtained. One of the following dose reduction techniques were utilized for this exam: Automated exposure control, adjustment of the mA and/or kV according to patient size, use of iterative reconstruction. FINDINGS: Lungs: Moderate to severe bilateral pleural effusion is identified with underlying consolidation/collapse in bilateral lower lung lobes. Scattered groundglass opacification with septal thickening and vascular congestion is noted in bilateral aerated lung levi. No pulmonary nodules or masses are identified. No evidence of interstitial lung disease or emphysema. No evidence of pneumothorax bilaterally. Mediastinum: Cardiomegaly. No evidence of significant pericardial effusion. Left-sided pacemaker is identified with its leads in place. Atrial appendage closure device is noted. Right-sided central venous line is noted with its tip appropriately positioned at the cavoatrial junction. No significant mediastinal or hilar lymphadenopathy identified. Sliding hiatus hernia is identified. Hilar Structures: The hilar structures appear normal without enlargement or abnormality. Hilar vascular congestion is noted. Trachea and Main Bronchi: The trachea and main bronchi are patent without evidence of obstruction or abnormality. Chest Wall: Mild edema is identified in the chest wall Upper Abdomen: Please refer to CT abdomen performed on the same date for detailed reporting Bones: Exaggerated thoracic kyphosis is noted. Degenerative changes are identified in the visualized spine. IMPRESSION: 1. Moderate to severe bilateral pleural effusion showing significant progression since prior examination with underlying consolidation/collapse in bilateral lower lobes. 2. Low-level groundglass opacification in the aerated lung levi with septal thickening and vascular congestion. 3. Cardiomegaly. 4. Constellation of findings may be secondary to pulmonary edema however possibility of superadded pulmonary infection needs to be excluded. Clinical and laboratory correlation is advised. 5. Sliding hiatus hernia. Electronically Signed by: Harshad Hernandez MD. (11/11/2024 23:56:58 EDT)
--- NOTE | 2024-11-12 00:08 | XRAY ---
CLINICAL HISTORY: vomiting, gen weakness COMPARISON: CT 06/01/2023 TECHNIQUE: CT of the abdomen and pelvis was performed, with the following protocol: axial images, and reconstructed coronal and sagittal images. No intravenous contrast was administered. One of the following dose reduction techniques was utilized for this exam: Automated exposure control, adjustment of the mA and/or kV according to patient size, and use of iterative reconstruction. FINDINGS: Abdomen: Liver: Normal in size, shape, and density. No focal lesions, cysts, or masses were identified. Gallbladder and Biliary System: The gallbladder is surgically absent with clips in the gallbladder fossa. Pancreas: Pancreatic head, body, and tail are visualized and appear normal in size and density. No pancreatic masses or calcifications were noted. Spleen: Normal in size, shape, and density. Tiny calcified granuloma is identified in the splenic parenchyma. No splenic lesions or masses were identified. Kidneys and Adrenal Glands: Left kidney is relatively smaller in size compared to the right kidney with renal cortex representing chronic renal parenchymal disease. The right kidney is normal in size shape and orientation. No evidence of nephrolithiasis or hydronephrosis bilaterally. Minimal nonspecific perinephric fat stranding is identified bilaterally. Appendix: The appendix is normal in size without jay jay appendiceal fat stranding, and without an appendicolith. No evidence of appendiceal abscess or perforation. Pelvis: Urinary Bladder: Urinary bladder is collapsed with Nathan's bulb and iatrogenic air in situ Uterus: Uterus is not visualized. Correlate with history of surgical removal. Ovaries: Not well visualized but no gross adnexal abnormalities noted. Vagina: Normal in contour and wall thickness. Cervix: No evidence of mass or abnormal thickening. Peritoneal and Retroperitoneal Structures: Mild intraperitoneal ascites is identified in the perihepatic, perisplenic and pelvic location. No significant abdominopelvic lymphadenopathy identified. Atherosclerotic calcifications are identified along the abdominal aorta and some of its branches. Venous line is identified in the right common femoral vein with its tip reaching up to the right common iliac vein. Subcutaneous emphysematous foci are identified in the right inguinal region likely secondary to. Generalized Body Wall Edema Is Noted. Bowel: Colonic diverticulosis is identified. The sigmoid colon is suboptimally distended. Moderate colonic fecal loading is identified. Sliding hiatus hernia noted. Small bowel loops are normal in caliber. No evidence of bowel obstruction or perforation. Bones and Soft Tissues: Degenerative changes are identified in the visualized spine Lower chest: Please refer to CT chest performed on the same date for detailed reporting. IMPRESSION: 1. Mild ascites. Stable. 2. Body wall edema. New interval finding. 3. Relatively small sized left kidney suggestive of left-sided chronic renal parenchymal disease. Stable. 4. Redemonstration of colonic diverticulosis. Sigmoid colon is largely collapsed resulting in limited evaluation. 5. Moderate colonic fecal loading. Electronically Signed by: Harshad Hernandez MD. (11/12/2024 00:06:07 EDT)
[2024-11-12 00:34] LABS: BAND 11 % (0.0-2.0); Macrocytosis 2+; Total Cells Counted 100
[2024-11-12] MEDS ORDERED: D50W 50 ml Abboject IV ONE (00:42)
[2024-11-12] MEDS: D50W 50 ml Abboject IV STA (00:47)
[2024-11-12] MEDS ORDERED: Zofran 4 MG/2 ML VIAL ONE (00:54)
[2024-11-12] MEDS ORDERED: SUBLIMAZE 100 MCG/2 ML ONE ×2 (00:55→01:56)
[2024-11-12] MEDS: SUBLIMAZE 100 MCG/2 ML IV ONE (01:04)
[2024-11-12] MEDS: Zofran 4 MG/2 ML VIAL IV ONE (01:06)
[2024-11-12] MEDS ORDERED: Hydromorphone 1 mg/ml Injection IV PRN (03:15)
--- NOTE | 2024-11-12 03:35 | PCM.HP ---
History of Present Illness - Chief Complaint Chief Complaint: Respiratory failure/pneumonia/sepsis/UTI/ History of Present Illness: 79 female with medical history of atrial fibrillation s/p Watchman device, pacemaker in place, HLD, hypothyroidism, orthostatic hypotension on midodrine, CHF, HTN, CAD CKD stage IV progressing to ESRD and placed on dialysis 3 weeks prior at [facility] generalized weakness, confusion, nausea, vomiting, poor appetite, visual hallucination. On my encounter patient is altered and somnolent extremely poor historian daughter at bedside who had provided medical history. As per the family patient does not wanted dialysis and asked for comfort measures. On arrival to ER hypotensive, white blood cell 13.2, BUN 22/creatinine 2.39, troponin 0.236, procalcitonin 2, UA positive leukocyte. Requiring patient was started on Levophed. ER provider was planning to transfer patient but family requested comfort measures only. I had communicated with daughter and -Camden who is a POA they are all in the same 1 year comfort measures since there was patient wishes. - Review of Systems Constitutional: No Symptoms Ears, Nose, & Throat: No Symptoms Respiratory: No Symptoms Cardiac: No Symptoms Abdominal/Gastrointestinal: No Symptoms Medications & Allergies Home Medications: Home Medication List Levothyroxine Sodium 88 Mcg [Synthroid 88 Mcg] 88 mcg PO DAILY 03/18/12 [History Confirmed 11/11/24] Aspirin EC 81 mg [Ecotrin 81 mg] 81 mg PO DAILY 07/11/21 [History Confirmed 11/11/24] Montelukast Sodium 10 mg [Singulair 10 MG] 10 mg PO DAILY 07/11/21 [History Confirmed 11/11/24] Allopurinol 300 mg [Zyloprim 300 mg] 300 mg PO DAILY 01/08/22 [History Confirmed 11/11/24] Atorvastatin Calcium [Lipitor 40Mg] 40 mg PO DAILY 01/08/22 [History Confirmed 11/11/24] Fluticasone/Umeclidin/Vilanter [Trelegy Ellipta 100-62.5-25] 1 puff IH DAILY 06/01/23 [History Confirmed 11/11/24] Albuterol/Ipratropium 3ml Neb* [DUONEB 0.5-3 MG/3 ml Neb] 1 inh IH Q6-8HPRN PRN 11/11/24 [History Confirmed 11/11/24] Ferrous Gluconate 324 mg PO BID 11/11/24 [History Confirmed 11/11/24] Lidocaine 1 patch TP DAILY 11/11/24 [History Confirmed 11/11/24] Midodrine HCl 20 mg PO TID 11/11/24 [History Confirmed 11/11/24] Omeprazole 1 cap PO BID 11/11/24 [History Confirmed 11/11/24] ondansetron HCL [Ondansetron HCl] 8 mg PO BID 11/11/24 [History Confirmed 11/11/24] Allergies/Adverse Reactions: Allergies Allergy/AdvReac Type Severity Reaction Status Date / Time codeine [Codeine] Allergy Mild Rash Verified 11/11/24 20:59 azithromycin [From Zithromax] AdvReac Verified 11/11/24 20:59 erythromycin base AdvReac Verified 11/11/24 20:59 - Past Medical History Past Medical History: Yes Neurological History: No Pertinent History ENT History: Cataracts Cardiac History: Congestive Heart Failure, Coronary Artery Disease, High Cholesterol, Hypertension, Other Respiratory History: Asthma, Bronchitis, COPD Endocrine Medical History: Hypothyroidism Musculoskelatal History: No Pertinent History GI Medical History: GERD, GI Bleed, Hernia History: Renal Disease Pyscho-Social History: No Pertinent History Reproductive Disorders: Abnormal Uterine Bleeding Comment: anemia, pacemaker, watchman device - Past Surgical History Past Surgical History: Yes Neuro Surgical History: No Pertinent History Cardiac History: Cardiac Catheterization, Cardiac Stent, Pacemaker Respiratory Surgery: No Pertinent History GI Surgical History: Cholecystectomy Genitourinary Surgical Hx: No Pertinent History Musculskeletal Surgical Hx: No Pertinent History Female Surgical History: Hysterectomy Other Surgical History: 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, pace maker, watchman device Significant Family History: no pertinent family hx - Social History Smoking Status: Never smoker Exposure to second hand smoke: No Alcohol: None Drug Use: none - Social Determinants of Health Will the patient participate in the screening: Yes Do you worry about a steady place to live?: No Do you have any problems with any of the following?: No known problems In the past 12 months,have you had to go without utilities?: No Have you or anyone in your house had to go without enough: No Transportation Issues: No Has anyone in your support network made you feel unsafe?: No Does the patient want assistance with any of the above?: No - Physical Exam Vital Signs: Vital Signs - 24 hr Temp Pulse Resp BP BP Pulse Ox 11/12/24 02:00 70 20 82/37 90 L 11/12/24 01:55 70 29 H 75/41 93 L 11/12/24 01:45 70 31 H 66/33 97 11/12/24 01:42 70 24 70/33 97 11/12/24 01:31 70 23 61/42 98 11/12/24 01:16 71 23 100/54 97 11/12/24 01:15 95 11/12/24 01:00 70 27 H 103/51 95 11/12/24 00:45 70 28 H 108/61 95 11/12/24 00:30 70 27 H 97/51 96 11/12/24 00:15 70 27 H 92/48 97 11/12/24 00:00 71 25 H 86/54 100 11/11/24 23:45 72 22 93/64 100 11/11/24 23:41 70 25 H 98/61 100 11/11/24 23:36 70 22 100 11/11/24 23:30 70 28 H 88/53 100 11/11/24 23:24 70 27 H 85/49 100 11/11/24 23:00 70 25 H 84/36 95 11/11/24 22:57 70 24 76/44 98 11/11/24 22:55 70 28 H 90 L 11/11/24 22:00 67 30 H 82/46 94 L 11/11/24 21:57 65 25 H 86/42 92 L 11/11/24 21:56 67 29 H 11/11/24 21:55 73 26 H 11/11/24 21:03 134/112 11/11/24 21:02 98.1 F 70 18 134/112 100 General Appearance: no apparent distress Neurologic Exam: disoriented Respiratory Exam: crackles/rales Cardiovascular Exam: regular rate/rhythm Gastrointestinal/Abdomen Exam: soft Results - Labs Lab/Micro Results: Lab Results-Last 24 Hours 11/11/24 11/11/24 11/11/24 Range/Units 21:08 21:36 21:45 WBC (3.98-10.04) x10^3/uL RBC (3.93-5.22) x10^6/uL Hgb (11.2-15.7) g/dL Hct (34.1-44.9) % MCV (79.4-94.8) fL MCH (25.6-32.2) pg MCHC (32.2-35.5) g/dL RDW (11.7-14.4) % Plt Count (182-369) x10^3/uL MPV (9.4-12.3) fL Segmented Neutrophils (34.0-71.1) % Band Neutrophils (0.0-2.0) % Lymphocytes (Manual) (19.3-51.7) % Monocytes (Manual) (4.7-12.5) % Nucleated RBCs % Platelet Estimate (NORMAL) RBC Morphology Macrocytosis Sodium (135-145) mmol/L Potassium (3.5-5.1) mmol/L Chloride (98-107) mmol/L Carbon Dioxide (22-30) mmol/L Anion Gap (5-15) MEQ/L BUN (7-17) mg/dL Creatinine (0.52-1.04) mg/dL Estimated GFR ML/MIN Glucose (74-106) mg/dL POC Glucometer 30 L* 156 H (50 to 500) mg/dL Lactic Acid (0.4-2.0) Calcium (8.4-10.2) mg/dL Total Bilirubin (0.2-1.3) mg/dL AST (14-36) U/L ALT (0-35) U/L Alkaline Phosphatase (38-126) U/L Troponin I (0.000-0.033) ng/mL Serum Total Protein (6.3-8.2) g/dL Albumin (3.5-5.0) g/dL Lipase (23-300) U/L Procalcitonin (0.030-0.080) ng/mL Urine Color Dark Yellow A (Yellow) Urine Appearance Turbid A (Clear) Urine pH 6.0 (4.6-8.0) Ur Specific [place] 1.015 (1.005-1.030) Urine Protein 300 A (Negative) Urine Glucose (UA) Negative (Negative) mg/dL Urine Ketones Trace A (Negative) Urine Blood Large A (Negative) Urine Nitrite Negative (Negative) Urine Bilirubin Small A (Negative) Urine Urobilinogen 1.0 A (0.2) mg/dL Ur Leukocyte Esterase Large A (Negative) U Hyaline Cast (Auto) 6-10 A (0-2) /LPF Urine Microscopic RBC 6-10 A (0-5) /HPF Urine Microscopic WBC >100 A (0-5) /HPF Ur Epithelial Cells Moderate A (None Seen) /HPF Urine Bacteria Many A (None Seen) /HPF Urine Culture Reflexed YES (NO) 11/11/24 11/11/24 11/11/24 Range/Units 21:45 21:45 21:45 WBC 13.2 H (3.98-10.04) x10^3/uL RBC 4.01 (3.93-5.22) x10^6/uL Hgb 11.5 (11.2-15.7) g/dL Hct 35.3 (34.1-44.9) % MCV 88.0 (79.4-94.8) fL MCH 28.7 (25.6-32.2) pg MCHC 32.6 (32.2-35.5) g/dL RDW 27.4 H (11.7-14.4) % Plt Count 100 L (182-369) x10^3/uL MPV 9.7 (9.4-12.3) fL Segmented Neutrophils 76 H (34.0-71.1) % Band Neutrophils 11 H (0.0-2.0) % Lymphocytes (Manual) 11 L (19.3-51.7) % Monocytes (Manual) 2 L (4.7-12.5) % Nucleated RBCs 2 % Platelet Estimate DECREASED (NORMAL) RBC Morphology ABNORMAL Macrocytosis 2+ Sodium 126 L (135-145) mmol/L Potassium 3.4 L (3.5-5.1) mmol/L Chloride 90 L (98-107) mmol/L Carbon Dioxide 27 (22-30) mmol/L Anion Gap 11.8 (5-15) MEQ/L BUN 22 H (7-17) mg/dL Creatinine 2.39 H (0.52-1.04) mg/dL Estimated GFR 19.9 ML/MIN Glucose 209 H (74-106) mg/dL POC Glucometer (50 to 500) mg/dL Lactic Acid (0.4-2.0) Calcium 7.4 L (8.4-10.2) mg/dL Total Bilirubin 2.00 H (0.2-1.3) mg/dL AST 29 (14-36) U/L ALT 11 (0-35) U/L Alkaline Phosphatase 136 H (38-126) U/L Troponin I 0.236 H* (0.000-0.033) ng/mL Serum Total Protein 4.6 L (6.3-8.2) g/dL Albumin 2.0 L (3.5-5.0) g/dL Lipase 73 (23-300) U/L Procalcitonin 2.000 H (0.030-0.080) ng/mL Urine Color (Yellow) Urine Appearance (Clear) Urine pH (4.6-8.0) Ur Specific [place] (1.005-1.030) Urine Protein (Negative) Urine Glucose (UA) (Negative) mg/dL Urine Ketones (Negative) Urine Blood (Negative) Urine Nitrite (Negative) Urine Bilirubin (Negative) Urine Urobilinogen (0.2) mg/dL Ur Leukocyte Esterase (Negative) U Hyaline Cast (Auto) (0-2) /LPF Urine Microscopic RBC (0-5) /HPF Urine Microscopic WBC (0-5) /HPF Ur Epithelial Cells (None Seen) /HPF Urine Bacteria (None Seen) /HPF Urine Culture Reflexed (NO) 11/11/24 11/11/24 11/11/24 Range/Units 21:47 23:01 23:39 WBC (3.98-10.04) x10^3/uL RBC (3.93-5.22) x10^6/uL Hgb (11.2-15.7) g/dL Hct (34.1-44.9) % MCV (79.4-94.8) fL MCH (25.6-32.2) pg MCHC (32.2-35.5) g/dL RDW (11.7-14.4) % Plt Count (182-369) x10^3/uL MPV (9.4-12.3) fL Segmented Neutrophils (34.0-71.1) % Band Neutrophils (0.0-2.0) % Lymphocytes (Manual) (19.3-51.7) % Monocytes (Manual) (4.7-12.5) % Nucleated RBCs % Platelet Estimate (NORMAL) RBC Morphology Macrocytosis Sodium (135-145) mmol/L Potassium (3.5-5.1) mmol/L Chloride (98-107) mmol/L Carbon Dioxide (22-30) mmol/L Anion Gap (5-15) MEQ/L BUN (7-17) mg/dL Creatinine (0.52-1.04) mg/dL Estimated GFR ML/MIN Glucose (74-106) mg/dL POC Glucometer 72 L 114 H (50 to 500) mg/dL Lactic Acid 2.2 H (0.4-2.0) Calcium (8.4-10.2) mg/dL Total Bilirubin (0.2-1.3) mg/dL AST (14-36) U/L ALT (0-35) U/L Alkaline Phosphatase (38-126) U/L Troponin I (0.000-0.033) ng/mL Serum Total Protein (6.3-8.2) g/dL Albumin (3.5-5.0) g/dL Lipase (23-300) U/L Procalcitonin (0.030-0.080) ng/mL Urine Color (Yellow) Urine Appearance (Clear) Urine pH (4.6-8.0) Ur Specific [place] (1.005-1.030) Urine Protein (Negative) Urine Glucose (UA) (Negative) mg/dL Urine Ketones (Negative) Urine Blood (Negative) Urine Nitrite (Negative) Urine Bilirubin (Negative) Urine Urobilinogen (0.2) mg/dL Ur Leukocyte Esterase (Negative) U Hyaline Cast (Auto) (0-2) /LPF Urine Microscopic RBC (0-5) /HPF Urine Microscopic WBC (0-5) /HPF Ur Epithelial Cells (None Seen) /HPF Urine Bacteria (None Seen) /HPF Urine Culture Reflexed (NO) 11/12/24 Range/Units 00:36 WBC (3.98-10.04) x10^3/uL RBC (3.93-5.22) x10^6/uL Hgb (11.2-15.7) g/dL Hct (34.1-44.9) % MCV (79.4-94.8) fL MCH (25.6-32.2) pg MCHC (32.2-35.5) g/dL RDW (11.7-14.4) % Plt Count (182-369) x10^3/uL MPV (9.4-12.3) fL Segmented Neutrophils (34.0-71.1) % Band Neutrophils (0.0-2.0) % Lymphocytes (Manual) (19.3-51.7) % Monocytes (Manual) (4.7-12.5) % Nucleated RBCs % Platelet Estimate (NORMAL) RBC Morphology Macrocytosis Sodium (135-145) mmol/L Potassium (3.5-5.1) mmol/L Chloride (98-107) mmol/L Carbon Dioxide (22-30) mmol/L Anion Gap (5-15) MEQ/L BUN (7-17) mg/dL Creatinine (0.52-1.04) mg/dL Estimated GFR ML/MIN Glucose (74-106) mg/dL POC Glucometer 86 (50 to 500) mg/dL Lactic Acid (0.4-2.0) Calcium (8.4-10.2) mg/dL Total Bilirubin (0.2-1.3) mg/dL AST (14-36) U/L ALT (0-35) U/L Alkaline Phosphatase (38-126) U/L Troponin I (0.000-0.033) ng/mL Serum Total Protein (6.3-8.2) g/dL Albumin (3.5-5.0) g/dL Lipase (23-300) U/L Procalcitonin (0.030-0.080) ng/mL Urine Color (Yellow) Urine Appearance (Clear) Urine pH (4.6-8.0) Ur Specific [place] (1.005-1.030) Urine Protein (Negative) Urine Glucose (UA) (Negative) mg/dL Urine Ketones (Negative) Urine Blood (Negative) Urine Nitrite (Negative) Urine Bilirubin (Negative) Urine Urobilinogen (0.2) mg/dL Ur Leukocyte Esterase (Negative) U Hyaline Cast (Auto) (0-2) /LPF Urine Microscopic RBC (0-5) /HPF Urine Microscopic WBC (0-5) /HPF Ur Epithelial Cells (None Seen) /HPF Urine Bacteria (None Seen) /HPF Urine Culture Reflexed (NO) - Radiology Impressions Radiology Exams & Impressions: Radiology Procedures Category Date Time Status ABDOMEN AND PELVIS W/0 CONTRAS [CT] Stat Exams 11/11/24 22:41 Completed CHEST WITHOUT CONTRAST [CT] Stat Exams 11/11/24 22:41 Completed Assessment/Plan (1) Acute UTI (urinary tract infection) Current Visit: Yes Status: Acute Assessment & Plan: 79 female with medical history of atrial fibrillation s/p Watchman device, pacemaker in place, HLD, hypothyroidism, orthostatic hypotension on midodrine, CHF, HTN, CAD CKD stage IV progressing to ESRD and placed on dialysis 3 weeks prior at [facility] generalized weakness, confusion, nausea, vomiting, poor appetite, visual hallucination admitted to observation unit for comfort measures. #Comfort measures > Patient presented septic likely due to UTI but family wants comfort measures only. As needed pain medications are in place. #ESRD on HD Continue comfort measures patient and family do not want any more dialysis. Telemedicine Statement: 1) Service was provided using HIPAA compliant platform utilizing [employer] for audio/visual equipment. 2) Patient location: [facility] 3) Provider location: [place] 4) Participants infection prevention coordinator: Bedside RN, patient 5) Consent was obtained and the patient was seen with nurse assisting at the bedside. Anticipated length of stay: I anticipate the patient requires hospital level of care for at least < 2 midnights or longer based on the complexity of the patient's medical illness comfort measures only which includes the need for IV pain medication* that cannot be done at a lower level of care Consent: - Patients identity was confirmed. - Medical condition or illness was discussed with the patient/personal development representative. - Current proposed treatment for medical condition or illness was explained to patient/personal development representative along with the likely benefits, significant risks and complications associated with the treatment. - The patient/personal development representative verbally authorized treatment to be provided by audio/video, which may include a limited review of patients current health status, medication or other treatment recommendations, patient education and an opportunity to ask questions about condition and treatment. - I have reviewed all available old records and data - Verbal Consent granted: Yes I spent total of 76 minutes providing care to this patient which includes time for face to face visit via telemedicine, review of medical records, imaging studies and discussion of findings with providers, family Code(s): N39.0 - URINARY TRACT INFECTION, SITE NOT SPECIFIED Telemedicine Encounter - Telemedicine Encounter Telemedicine Encounter: "The entirety of this encounter was performed via Telemedicine" This visit was performed using real-time audio and video connection between my location and thepatients locationwith the assistance of a surrogateat the patients location. Written or verbal consent was obtained from the patient/guardian to perform this visit [facility]. Any patient questions regarding the telemedicine interaction were answered.
[2024-11-12] MEDS: Zofran 4 MG/2 ML VIAL IV PRN (04:56)
[2024-11-12] MEDS: Compazine 10 MG/2 ML IV PRN (05:35)
[2024-11-12] MEDS: Ativan 2 MG/1 ML VIAL IV PRN (07:03)
[2024-11-12 07:28] VITALS: O2SAT 99
[2024-11-12] MEDS: VANCOMYCIN 1.5 GRAM/300 ML BAG 1.5 GM/300 ML PIGGYBACK IV STA (07:40)
[2024-11-12] MEDS: MORPHINE SULFATE 2 MG INJ IV PRN ×2 (09:24→13:18)
[2024-11-12] MEDS: Robinul 0.4 MG/2 ML IV PRN (11:07)
[2024-11-12] MEDS ORDERED: Ativan 20 MG/10 ML MDV IV PRN (11:13)
[2024-11-12] MEDS ORDERED: ROBINUL IV PRN (11:52)
[2024-11-12 11:53] VITALS: BP 56/27; PULSE 60; RESP 60; TEMP 98.6
--- NOTE | 2024-11-12 15:01 | PCM.DS ---
Note Note: Patient was admitted from a [place] [facility] facility for generalized weakness, confusion, nausea, vomiting, decreased appetite, and visual hallucinations. On initial evaluation, patient was noted to be somnolent, altered, and a poor historian. Her daughter was present at bedside and provided history. Initial ED workup revealed hypotension, leukocytosis (WBC 13.2), BUN 22/Creatinine 2.39, troponin 0.236, procalcitonin 2.0, and positive leukocytes on urinalysis. These findings were concerning for sepsis, likely secondary to a urinary source. Levophed was initiated for hypotension. The ED team was preparing for transfer to a higher level of care, but the familyincluding daughter and (DIPTI Hannah)clearly expressed patients previously stated wishes to forego further aggressive interventions, including dialysis. All parties agreed to initiate comfort measures only. Patient was transferred to the observation unit on a comfort care plan. No further dialysis was performed. Pain and symptom management were initiated per protocol. Time of : Exam performed by GUILLERMINA Barrera/Deborah Chavez -Patient was found without pulse, heart sounds, or spontaneous respiration. A exam was performed, confirming absence of all signs of life. Pupils: fixed and dilated Heart sounds: absent Breath sounds: absent Pulse: absent Patient was pronounced on 11/12/2024 at 1400. The family was at bedside at the time of exam, all the questions were answered appropriately.
== END 2024-11-12 15:47 | disposition expired ==
LOC: ED 20:57 → MED SURG 11-12 02:32
PROVIDERS: ADMIT Internal Medicine; ATTEND Internal Medicine
DX: N39.0 Urinary tract infection, site not specified (principal); I48.91 Unspecified atrial fibrillation; E78.5 Hyperlipidemia, unspecified; E03.9 Hypothyroidism, unspecified; I95.1 Orthostatic hypotension; I13.0 Hypertensive heart and chronic kidney disease with heart failure and stage 1 through stage 4 chronic kidney disease, or unspecified chronic kidney disease; N18.4 Chronic kidney disease, stage 4 (severe); I50.9 Heart failure, unspecified; N18.6 End stage renal disease; Z79.899 Other long term (current) drug therapy
CPT/HCPCS: 36415; 71250; 74176; 80053; 81001; 82947; 83605; 83690; 84145; 84484; 85025; 87040; 87077; 87086; 87186; 93005; 94640; 96374; 96375; 99291; 99292; G0378